=== PATIENT | male | born 1995 | race American Indian/Alaskan Native ===

== ENCOUNTER 2018-06-03 18:37 | Emergency (ER) | payer SELFPAY ==
[2018-06-03] MEDS ORDERED: NACL 0.9% 1000 ML 1,000 ML IV ONE ×2 (19:18)
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
[2018-06-03] MEDS ORDERED: ACTIDOSE-AQUA PO ONE (19:39)
[2018-06-03] MEDS ORDERED: ZOFRAN IV ONE (19:41)
[2018-06-03 19:57] LABS: Basophils % (Auto) 0.3 % (0.0-1.8); Eosinophils # (Auto) 0.1 K/mm3 (0.0-0.4); Eosinophils % (Auto) 0.6 % (0.0-4.3); Hematocrit 43.4 % (35.5-45.6); Hemoglobin 15.2 gm/dl (11.8-15.2); Lymphocytes # (Auto) 1.7 K/mm3 (1.2-5.4); Lymphocytes % (Auto) 11.3 % (13.4-35.0); Mean Corpuscular HGB Conc 35 % (32-34); Mean Corpuscular Hemoglobin 30 pg (28-32); Mean Corpuscular Volume 85 fl (84-94); Monocytes # (Auto) 1.6 K/mm3 (0.0-0.8); Monocytes % (Auto) 10.7 % (0.0-7.3); Platelet Count 218 K/mm3 (140-440); Red Blood Count 5.11 M/mm3 (3.65-5.03); Red Cell Distribution Width 15.4 % (13.2-15.2)
[2018-06-03 20:02] LABS: Bacteria,Urine 1+ /HPF (Negative); Bilirubin,Urine NEG (Negative); Blood,Urine NEG (Negative); Color,Urine Amber (Yellow); Mucus,Urine FEW /HPF
[2018-06-03 20:11] LABS: BUN/Creatinine Ratio 10; Blood Urea Nitrogen 10 mg/dL (9-20); Calcium 9.2 mg/dL (8.4-10.2); Hemolysis Index 2
[2018-06-03 20:11] LABS: Amphetamine Screen,Urine PRESUMPTIVE NEGATIVE; Benzodiazepines Screen,Urine PRESUMPTIVE NEGATIVE; Cocaine Screen,Urine PRESUMPTIVE NEGATIVE; Methadone Screen,Urine PRESUMPTIVE NEGATIVE; Opiate Screen,Urine PRESUMPTIVE NEGATIVE
[2018-06-03 20:17] LABS: Cannabinoid Screen,Urine PRESUMPTIVE POSITIVE
[2018-06-04] MEDS ORDERED: NACL 0.9% 1000 ML 1,000 ML IV ONE (00:49)
[2018-06-04] MEDS ORDERED: PROAIR IH ONE (08:19)
[2018-06-04] MEDS ORDERED: PROVENTIL IH ONE ×2 (08:45→11:04)
--- NOTE | 2018-06-04 11:49 | Consultation ---
History of Present Illness - Reason for Consult Consult date: 06/04/18 Reason for consult: Mental Health Evaluation Requesting physician: LINDA ROJAS - Chief Complaint Chief complaint: "I wanted my tongue to stop having spasm" - History of Present Psychiatric Illness 23 y.o. AA male presenting to the ER for overdosing on Benadryl. Today the patient is calm and cooperative during the assessment. He stated having "tongue spasm." The patient has a hx of taking antipsychotics in the past for Schizoaffective DO. He stated that he last received the monthly Invega injection a 30 days ago. He stated that he took 4 to 8 Benadryl to stop his tongue from feeling "funny." He stated that he normally take one or two Benadryl when he experience the spasm. He stated that he will not be receiving the monthly Invega injection anymore, because he feel like he doesn't need it. He denies any previous suicide attempts in the past. He denies SI/HI's and AVH' s. He denies erratic sleep and a poor appetite. He denies alcohol consumption ( etoh), but admitted to smoking marijuana "sometimes." Medications and Allergies Allergies Allergy/AdvReac Type Severity Reaction Status Date / Time aripiprazole [From Abilify] AdvReac Unknown Verified 06/03/18 18:58 citalopram [From Celexa] AdvReac Unknown Verified 06/03/18 19:00 divalproex sodium AdvReac Unknown Verified 06/03/18 18:59 [From Depakote] lurasidone [From Latuda] AdvReac Unknown Verified 06/03/18 19:01 olanzapine [From Zyprexa] AdvReac Unknown Verified 06/03/18 18:58 paroxetine [From Paxil] AdvReac Unknown Verified 06/03/18 18:57 risperidone [From Risperdal] AdvReac Unknown Verified 06/03/18 18:59 ziprasidone [From Geodon] AdvReac Unknown Verified 06/03/18 19:00 Home Medications Medication Instructions Recorded Confirmed Last Taken Type Basaglar Kwikpen U-100 20 units SQ DAILY 06/04/18 06/04/18 Unknown History Ventolin HFA 2 puff IH QID PRN 06/04/18 06/04/18 Unknown History metFORMIN 500 mg PO TID 06/04/18 06/04/18 Unknown History Past psychiatric history - Past Medical History Past Medical History: diabetes, other (Asthma) Past Surgical History: No surgical history - past Psychiatric treatment and history psychiatric treatment history: Inpatient psy services 5 yrs ago. Denies a fam psy hx. - Social History Social history: lives with family Mental Status Exam - Vital signs Last Vital Signs Temp 97.7 F 06/04/18 08:00 Pulse 73 06/04/18 08:00 Resp 17 06/04/18 08:00 BP 120/67 06/04/18 08:00 Pulse Ox 97 06/04/18 08:00 - Exam Narrative exam: MSE: Appearance: calm, cooperative Behavior: regular eye contact Speech: regular rate and tone Mood: "okay" Affect: congruent to mood Thought Process: circumstantial Thought Content: denies SI/HI's and AVH's Motor Activity: sitting up in bed Cognition: A/O x 3 Insight: variable Judgment: variable Results Result Diagrams: 06/03/18 19:35 06/03/18 19:35 Abnormal lab results 06/03/18 06/03/18 06/03/18 Range/Units 19:35 19:35 19:35 WBC (4.5-11.0) K/mm3 RBC (3.65-5.03) M/mm3 MCHC (32-34) % RDW (13.2-15.2) % Lymph % (Auto) (13.4-35.0) % [place] % (Auto) (0.0-7.3) % [place] # (0.0-0.8) K/mm3 Seg Neutrophils % (40.0-70.0) % Seg Neutrophils # (1.8-7.7) K/mm3 Glucose 149 H (75-100) mg/dL Salicylates < 0.3 L (2.8-20.0) mg/dL Acetaminophen < 5.0 L (10.0-30.0) ug/mL 06/03/18 Range/Units 19:35 WBC 14.8 H (4.5-11.0) K/mm3 RBC 5.11 H (3.65-5.03) M/mm3 MCHC 35 H (32-34) % RDW 15.4 H (13.2-15.2) % Lymph % (Auto) 11.3 L (13.4-35.0) % [place] % (Auto) 10.7 H (0.0-7.3) % [place] # 1.6 H (0.0-0.8) K/mm3 Seg Neutrophils % 77.1 H (40.0-70.0) % Seg Neutrophils # 11.5 H (1.8-7.7) K/mm3 Glucose (75-100) mg/dL Salicylates (2.8-20.0) mg/dL Acetaminophen (10.0-30.0) ug/mL All other labs normal. Assessment and Plan Assessment and plan: Impression: Hx of Schizoaffective DO per the patient. Cannabis Use DO. R/O possible intentional overdose. Today the patient is calm and cooperative during the assessment. No EPS symptoms noted. Recommendation/Plan: Continue 1013 and gather collateral information to help determine proper dispo and treatment. The patient last received the monthly Invega injection 30 days ago.
--- NOTE | 2018-06-05 12:25 | Progress Note ---
Subjective - Reason for Consult Consult date: 06/05/18 Reason for consult: Psychaitry Follow-up - Chief Complaint Chief complaint: "I don't know" 23 y.o. AA male presenting to the ER for overdosing on Benadryl. Today the patient is calm, but disorganized during the assessment. His answers to most of the questions asked of him was not logical. The patient's presentation is different from the initial assessment. Per collateral information from his mother Mere Rayo at [phone], she stated that her son has several metabolic/EPS side effects when he takes antipsychotic medications accept Invega. She stated that her son has less reactions to Invega when taken with Benadryl. She stated her son cannot take Cogentin. She stated that the patient received an Invega injection 40 days ago. Also, she stated that she do not believe her son tried to kill himself when he took multiple Benadryl pills to lessen the "tongue spasm" he was having. The patient denies SI/HI's and VH's. The patient cannot confirm or deny AH's when asked. Per the staff, no behavioral disturbances overnight. Mental Status Exam - Vital signs Last Vital Signs Temp 98.8 F 06/04/18 20:00 Pulse 98 H 06/04/18 20:00 Resp 18 06/04/18 20:00 BP 143/84 06/04/18 20:00 Pulse Ox 100 06/04/18 20:00 - Exam Narrative exam: MSE: Appearance: calm, cooperative Behavior: regular eye contact Speech: regular rate and tone Mood: "okay" Affect: congruent to mood Thought Process: disorganized Thought Content: denies SI/HI's and AVH's Motor Activity: sitting up in bed Cognition: A/O x 3 Insight: poor Judgment: variable Assessment and Plan Impression: Hx of Schizoaffective DO per the patient. Cannabis Use DO. R/O possible intentional overdose. Today the patient is calm and cooperative during the assessment. No EPS symptoms noted. QTC 442 06/03/2018. Recommendation/Plan: Continue 1013 with placement to inpatient psy services. Start Invega 3 mg PO daily for psychosis and Benadyl 25 mg PO daliy for EPS prevention. This medication is non-formulary and can be delivered today. Discussed possible metabolic/EPS side effects of Invega with the patient and his mother Mere Girma.
[2018-06-05] MEDS ORDERED: INVEGA 3 MG PO SCH (15:00)
[2018-06-06] MEDS: INVEGA PO SCH (09:59)
[2018-06-06] MEDS: BENADRYL PO SCH (09:59)
[2018-06-06 11:05] LABS: Basophils # (Auto) 0.1 K/mm3 (0.0-0.1); Basophils % (Auto) 0.9 % (0.0-1.8); Eosinophils # (Auto) 0.3 K/mm3 (0.0-0.4); Eosinophils % (Auto) 2.9 % (0.0-4.3); Lymphocytes # (Auto) 1.9 K/mm3 (1.2-5.4); Mean Corpuscular HGB Conc 37 % (32-34); Mean Corpuscular Hemoglobin 32 pg (28-32); Mean Corpuscular Volume 85 fl (84-94); Monocytes % (Auto) 10.1 % (0.0-7.3); Platelet Count 212 K/mm3 (140-440); Red Blood Count 4.84 M/mm3 (3.65-5.03); Red Cell Distribution Width 15.2 % (13.2-15.2)
[2018-06-06 11:07] LABS: Hematocrit 40.9 % (35.5-45.6); Hemoglobin 15.3 gm/dl (11.8-15.2)
[2018-06-06] MEDS ORDERED: HumuLIN R IV ONE (12:10)
--- NOTE | 2018-06-06 14:01 | Progress Note ---
Subjective - Reason for Consult Consult date: 06/06/18 Reason for consult: Psychiatry Follow-up - Chief Complaint Chief complaint: "Hello" 23 y.o. AA male presenting to the ER for overdosing on Benadryl. Today the patient is calm and cooperative during the assessment. The patient has a circumstantial thought process throughout he interview. He stated that he feel better "mentally" today. He stated talking with both his parents yesterday. The patient denies SI/HI's and AVH's. He denies any side effects of his medications. Per the staff, no behavioral disturbance overnight. Mental Status Exam - Vital signs Last Vital Signs Temp 98.6 F 06/06/18 09:22 Pulse 91 H 06/06/18 09:22 Resp 18 06/06/18 09:22 BP 123/77 06/06/18 09:22 Pulse Ox 99 06/06/18 09:22 - Exam Narrative exam: MSE: Appearance: calm, cooperative Behavior: regular eye contact Speech: regular rate and tone Mood: "okay" Affect: congruent to mood Thought Process: circumstantial Thought Content: denies SI/HI's and AVH's Motor Activity: sitting up in bed Cognition: A/O x 3 Insight: variable Judgment: variable Assessment and Plan Impression: Hx of Schizoaffective DO per the patient. Cannabis Use DO. R/O possible intentional overdose. Today the patient is calm and cooperative during the assessment. No EPS symptoms noted. QTC 442 06/03/2018. Recommendation/Plan: Reevaluate 1013 in 24 hours to determine proper dispo. Continue Invega 3 mg PO daily for psychosis/mood and Benadryl 25 mg PO daliy for EPS prevention. Invega is non-formulary. Discussed possible metabolic/EPS side effects of Invega with the patient and his mother Mere Rayo. Discussed the importance to abstain from recreational drug use.
[2018-06-06] MEDS ORDERED: D50W (25GM) Syringe IV PRN (17:57)
[2018-06-06] MEDS: HumuLIN R SUB-Q SCH ×2 (18:24→22:34)
--- NOTE | 2018-06-07 00:44 | Emergency Department Report ---
Blank Doc - Documentation Documentation: I re-signed a 1013 form as requested by psychiatrist from accepting facilitating who requested further clarification of 1013 criteria. Patient has been here for several days and was initially seen and medically cleared by Dr. Dinh and has received multiple psychiatric consults from mental health providers daily since he has been here in the emergency department. I clarified the 1013 criteria on form stating overdose attempt on Benadryl 25mg x 40 tablets. Patient still requires inpatient psychiatric admission as recommended by psychiatry and initial treating physician.
[2018-06-07 07:41] VITALS: BP 123/87
[2018-06-07] MEDS: HumuLIN R SUB-Q SCH ×3 (08:49→17:02)
[2018-06-07] MEDS: BENADRYL PO SCH (10:20)
[2018-06-07] MEDS: INVEGA PO SCH (10:20)
--- NOTE | 2018-06-07 15:55 | Progress Note ---
Subjective - Reason for Consult Consult date: 06/07/18 Reason for consult: Psychiatric Follow-up Evaluation - Chief Complaint Chief complaint: "I'm feeling okay. " Patient is a 23 y.o. male who presents to the emergency for overdosing on Benadryl. Today the patient is calm and cooperative during the assessment. Patient verbalized that he had/has no intentions on harming himself. Patient feels that his symptoms are controlled with Invega. Provider contacted patient's father at 3:43 to gain collateral ([phone]). Per father patient is safe to return home. He will ensure that patient receives his monthly dose of Invega Sustenna, which was last received in [place]. Per father patient will return to [place] to receive monthly dose of Invega Sustenna until he establish care with an outpatient psychiatrist here in [place]. The patient denies SI/HI's, AVH's, and delusions. He denies any side effects of his medications. Per the staff, no behavioral disturbance overnight, as well as, appropriate mood. Mental Status Exam - Vital signs Last Vital Signs Temp 97.4 F L 06/07/18 07:33 Pulse 81 06/07/18 07:33 Resp 16 06/07/18 07:33 BP 123/87 06/07/18 07:33 Pulse Ox 96 06/07/18 07:33 - Exam Narrative exam: Mental Status Exam General Appearance: Causally Dressed-hospital gown Eye Contact: Intermittent Orientation: Alert and oriented x 4 ( person, place, time, and situation) Attitude/Behavior: Cooperative Sensorium: Clear Psychomotor & Musculoskeletal Activity: Ambulatory Mood: "I'm okay." Affect: Congruent with mood Speech/Language: Regular rate and tone Thought Processes: Circumstantial Thought Content: Reality oriented. Logical. Patient denies delusions. Perception: Patient denies A/V/T hallucinations. Concentration/Attention: Intact Suicidal Ideations/Plan: Patient denies. "No." Homicidal Ideations/Plan: Patient denies "No." Insight: Fair Judgment: Fair Assessment and Plan Impression: Hx of Schizoaffective DO per the patient. Cannabis Use DO. R/O possible intentional overdose. Today the patient is calm and cooperative during the assessment. No EPS symptoms noted. QTC 442 06/03/2018. He denies SI/HI, A/VH , and delusions. At the time of discharge patient is in no danger to self or others. Collateral has been collected. Provider spoke with patient's father at 3 :43pm ). Patient has good support system. Discussed medications/ coping skills/follow-up appointments. Patient and parents verbalize full understanding. Recommendation/Plan: 1. Will rescind 1013. 2. Continue Invega 3 mg PO daily for psychosis/mood and Benadryl 25 mg PO daliy for EPS prevention. Discussed possible metabolic/EPS side effects of Invega with the patient and his father Mr. Rayo. 3. Will provide patient with outpatient psychiatric services to the [facility]. 4. In case of a psychiatric emergency, patient/parents informed to call 911, report to the emergency room, or call the crisis line. Patient and parent verbalize full understanding. 5. Patient educated on recreational drug use. Discussed the importance to abstain from recreational drug use. 6. Safety plan discussed/implemented with father/patient in case of a psychiatric emergency per Kimberly/provider.
== END 2018-06-07 20:23 ==
LOC: ED 18:37 → EEVIPCON 18:37 → ED 06-07 20:23
DX: T45.0X1A Poisoning by antiallergic and antiemetic drugs, accidental (unintentional), initial encounter (principal); F31.9 Bipolar disorder, unspecified; F43.10 Post-traumatic stress disorder, unspecified; F25.9 Schizoaffective disorder, unspecified; J45.909 Unspecified asthma, uncomplicated; E11.9 Type 2 diabetes mellitus without complications; Z88.8 Allergy status to other drugs, medicaments and biological substances; Z88.1 Allergy status to other antibiotic agents; Z79.84 Long term (current) use of oral hypoglycemic drugs; Y92.89 Other specified places as the place of occurrence of the external cause
CPT/HCPCS: 36415; 80048; 80307; 81001; 82550; 82962; 85025; 93005; 93010; 94640; 96374; 99285; G0480; J2405; J7030; 80320

== ENCOUNTER 2019-04-08 01:15 | Emergency (ER) | payer MEDICAID ==
[2019-04-08] MEDS ORDERED: ZOFRAN IV ONE (01:50)
[2019-04-08] MEDS ORDERED: MORPHINE IV ONE (01:50)
--- NOTE | 2019-04-08 02:25 | XRay Report ---
PROCEDURE: XR SHOULDER 2+V RT TECHNIQUE: 3 views of the right shoulder were obtained. HISTORY: Injury COMPARISONS: None FINDINGS: There is an inferior subcoracoid dislocation of the humeral head without fracture. The acromioclavicu lar joint appears normal. The soft tissues are unremarkable. IMPRESSION: Inferior subcoracoid dislocation of the humeral head without fracture.. This document is electronically signed by Ren Espinoza MD., Apr 08 2019 02:23:41 AM ET
[2019-04-08] MEDS ORDERED: SUBLIMAZE IV ONE (02:28)
[2019-04-08] MEDS ORDERED: TORADOL IV ONE (02:28)
[2019-04-08] MEDS ORDERED: AMIDATE IV ONE (02:29)
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
[2019-04-08] MEDS ORDERED: NACL 0.9% 1000 ML 1,000 ML ONE (02:41)
[2019-04-08] MEDS ORDERED: NACL 0.9% 1000 ML 1,000 ML IV ONE (02:41)
--- NOTE | 2019-04-08 03:40 | XRay Report ---
PROCEDURE: XR SHOULDER 1V RT TECHNIQUE: Right shoulder 1 view HISTORY: status post reduction COMPARISONS: Earlier the same date FINDINGS: Previously identified dislocation has been reduced. No acute fractures seen IMPRESSION: Reduced dislocation. This document is electronically signed by Fifi Edmond DO., Apr 08 2019 03:38:41 AM ET
[2019-04-08 04:09] VITALS: BP 148/91
== END 2019-04-08 04:16 | disposition home or self-care (01) ==
LOC: ED 01:15
DX: S43.034A Inferior dislocation of right humerus, initial encounter (principal); E11.9 Type 2 diabetes mellitus without complications; J45.909 Unspecified asthma, uncomplicated; F12.90 Cannabis use, unspecified, uncomplicated; W51.XXXA Accidental striking against or bumped into by another person, initial encounter; Y93.71 Activity, boxing; Y92.89 Other specified places as the place of occurrence of the external cause; Y99.8 Other external cause status
CPT/HCPCS: 23650; 73020; 73030; 96374; 96375; 99284; J1885; J2270; J2405; J3010; J7030

== ENCOUNTER 2019-07-20 11:00 | Emergency (ER) | payer MEDICAID ==
[2019-07-20 11:29] VITALS: BP 136/78
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
== END 2019-07-20 11:57 | disposition home or self-care (01) ==
LOC: ED 11:00
DX: J30.9 Allergic rhinitis, unspecified (principal); E11.9 Type 2 diabetes mellitus without complications; J45.909 Unspecified asthma, uncomplicated; F43.10 Post-traumatic stress disorder, unspecified; F31.9 Bipolar disorder, unspecified
CPT/HCPCS: 99282

== ENCOUNTER 2019-10-28 14:52 | Emergency (ER) | payer MEDICAID ==
[2019-10-28 15:09] VITALS: BP 122/78
--- NOTE | 2019-10-28 15:11 | Event Note ---
ED Screening Note Date of service: 10/28/19 Time: 15:08 ED Screening Note: This is a 24 y.o. M. that presents to the ER with SOB and low back pain started this morning. Patient states he is using inhaler with no improvement of symptoms. Current marijuana smoker This initial assessment/diagnostic orders/clinical plan/treatment(s) is/are subject to change based on patients health status, clinical progression and re- assessment by fellow clinical providers in the ED. Further treatment and workup at subsequent clinical providers discretion. Patient/guardian urged not to elope from the ED as their condition may be serious if not clinically assessed and managed. Initial orders include:
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
== END 2019-10-28 16:38 | disposition home or self-care (01) ==
LOC: ED 14:52
DX: M79.18 Myalgia, other site (principal); E11.9 Type 2 diabetes mellitus without complications; J45.909 Unspecified asthma, uncomplicated; F31.9 Bipolar disorder, unspecified; Z98.890 Other specified postprocedural states; F12.10 Cannabis abuse, uncomplicated; Z79.1 Long term (current) use of non-steroidal anti-inflammatories (NSAID); Z79.899 Other long term (current) drug therapy; Z88.8 Allergy status to other drugs, medicaments and biological substances
CPT/HCPCS: 82962

== ENCOUNTER 2020-07-19 12:36 | Emergency (ER) | payer MEDICAID ==
[2020-07-19 13:18] LABS: Basophils # (Auto) 0.1 K/mm3 (0.0-0.1); Basophils % (Auto) 0.9 % (0.0-1.8); Eosinophils # (Auto) 0.1 K/mm3 (0.0-0.4); Eosinophils % (Auto) 1.2 % (0.0-4.3); Hematocrit 43.6 % (35.5-45.6); Hemoglobin 15.7 gm/dl (11.8-15.2); Lymphocytes # (Auto) 3.7 K/mm3 (1.2-5.4); Lymphocytes % (Auto) 32.8 % (13.4-35.0); Mean Corpuscular HGB Conc 36 % (32-34); Mean Corpuscular Volume 84 fl (84-94); Monocytes # (Auto) 1.2 K/mm3 (0.0-0.8); Monocytes % (Auto) 10.7 % (0.0-7.3); Platelet Count 290 K/mm3 (140-440); Red Blood Count 5.21 M/mm3 (3.65-5.03); Red Cell Distribution Width 13.7 % (13.2-15.2)
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
[2020-07-19 13:32] LABS: BUN/Creatinine Ratio 12; Blood Urea Nitrogen 11 mg/dL (9-20); Calcium 8.9 mg/dL (8.4-10.2); Hemolysis Index 13
[2020-07-19 14:31] LABS: Bilirubin,Urine NEG (Negative); Blood,Urine NEG (Negative); Color,Urine Yellow (Yellow); Mucus,Urine FEW /HPF; Protein,Urine <15 mg/dL mg/dL (Negative); Urobilinogen,Urine < 2.0 mg/dL (<2.0); WBC,Urine < 1.0 /HPF (0.0-6.0)
[2020-07-19 14:36] LABS: Amphetamine Screen,Urine PRESUMPTIVE NEGATIVE; Benzodiazepines Screen,Urine PRESUMPTIVE NEGATIVE; Cannabinoid Screen,Urine PRESUMPTIVE POSITIVE; Cocaine Screen,Urine PRESUMPTIVE NEGATIVE; Methadone Screen,Urine PRESUMPTIVE NEGATIVE; Opiate Screen,Urine PRESUMPTIVE NEGATIVE
[2020-07-20 00:30] VITALS: BP 134/76
== END 2020-07-20 01:26 ==
LOC: ED 12:36 → EEVIPCON 12:36 → ED 07-20 01:26
DX: F20.9 Schizophrenia, unspecified (principal); R45.851 Suicidal ideations; E11.9 Type 2 diabetes mellitus without complications; J45.909 Unspecified asthma, uncomplicated; F12.10 Cannabis abuse, uncomplicated; Z98.890 Other specified postprocedural states; Z87.891 Personal history of nicotine dependence; Z79.1 Long term (current) use of non-steroidal anti-inflammatories (NSAID); Z79.84 Long term (current) use of oral hypoglycemic drugs; Z79.899 Other long term (current) drug therapy; Z88.8 Allergy status to other drugs, medicaments and biological substances
CPT/HCPCS: 36415; 80048; 80307; 80320; 81001; 85025; G0480

== ENCOUNTER 2021-01-04 07:52 | Emergency (ER) | payer MEDICAID ==
[2021-01-04 07:58] VITALS: BP 144/86
[2021-01-04 08:35] LABS: Basophils # (Auto) 0.1 K/mm3 (0.0-0.1); Basophils % (Auto) 0.8 % (0.0-1.8); Eosinophils # (Auto) 0.4 K/mm3 (0.0-0.4); Eosinophils % (Auto) 3.9 % (0.0-4.3); Lymphocytes # (Auto) 3.5 K/mm3 (1.2-5.4); Lymphocytes % (Auto) 36.9 % (13.4-35.0); Mean Corpuscular HGB Conc 36 % (32-34); Mean Corpuscular Volume 83 fl (84-94); Monocytes # (Auto) 0.8 K/mm3 (0.0-0.8); Monocytes % (Auto) 8.5 % (0.0-7.3); Platelet Count 252 K/mm3 (140-440); Red Blood Count 5.25 M/mm3 (3.65-5.03); Red Cell Distribution Width 13.1 % (13.2-15.2)
[2021-01-04 08:43] LABS: Hematocrit 43.7 % (35.5-45.6)
[2021-01-04 08:44] LABS: Hemoglobin 15.9 gm/dl (11.8-15.2)
[2021-01-04 09:00] LABS: BUN/Creatinine Ratio 11; Blood Urea Nitrogen 9 mg/dL (9-20); Hemolysis Index 27
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
== END 2021-01-04 10:40 | disposition home or self-care (01) ==
LOC: ED 07:52
DX: S86.911A Strain of unspecified muscle(s) and tendon(s) at lower leg level, right leg, initial encounter (principal); E11.9 Type 2 diabetes mellitus without complications; F20.9 Schizophrenia, unspecified; J45.909 Unspecified asthma, uncomplicated; Z98.890 Other specified postprocedural states; Z79.1 Long term (current) use of non-steroidal anti-inflammatories (NSAID); Z79.84 Long term (current) use of oral hypoglycemic drugs; Z79.899 Other long term (current) drug therapy; Z88.8 Allergy status to other drugs, medicaments and biological substances; X58.XXXA Exposure to other specified factors, initial encounter; Y93.89 Activity, other specified; Y92.89 Other specified places as the place of occurrence of the external cause; Y99.8 Other external cause status
CPT/HCPCS: 36415; 80048; 85025; 85379

== ENCOUNTER 2021-01-05 16:14 | Emergency (ER) | payer MEDICAID ==
[2021-01-05] MEDS ORDERED: KETOROLAC 30 MG/1 ML INJ IV ONE (17:00)
[2021-01-05] MEDS ORDERED: CYCLOBENZAPRINE 10 MG TAB PO ONE (17:00)
[2021-01-05] MEDS ORDERED: dexAMETHasone 20 MG/5 ML VIAL IV ONE (17:00)
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
--- NOTE | 2021-01-05 18:09 | Vascular Lab Report ---
DUPLEX DOPPLER LOWER EXTREMITY VEINS, RIGHT INDICATION / CLINICAL INFORMATION: right leg pain. TECHNIQUE: Duplex doppler imaging was performed through the veins of the right lower extremity using venous comp ression and other maneuvers. COMPARISON: None available. FINDINGS: RIGHT COMMON FEMORAL VEIN: Negative. RIGHT FEMORAL VEIN: Negative. RIGHT POPLITEAL VEIN: Negative. RIGHT CALF VEINS: Negative. ADDITIONAL FINDINGS: None. IMPRESSION: 1. No sonographic evidence for DVT in the right lower extremity. Signer Name: Vijay Parikh MD Signed: 01/05/2021 6:04 PM Workstation Name: [id number]
[2021-01-05 18:24] LABS: Basophils # (Auto) 0.1 K/mm3 (0.0-0.1); Basophils % (Auto) 0.5 % (0.0-1.8); Eosinophils # (Auto) 0.2 K/mm3 (0.0-0.4); Eosinophils % (Auto) 1.5 % (0.0-4.3); Lymphocytes % (Auto) 23.5 % (13.4-35.0); Mean Corpuscular HGB Conc 37 % (32-34); Mean Corpuscular Volume 83 fl (84-94); Monocytes # (Auto) 1.1 K/mm3 (0.0-0.8); Monocytes % (Auto) 8.8 % (0.0-7.3); Platelet Count 259 K/mm3 (140-440); Red Cell Distribution Width 13.1 % (13.2-15.2)
[2021-01-05 18:30] LABS: Hematocrit 43.3 % (35.5-45.6); Hemoglobin 15.9 gm/dl (11.8-15.2)
[2021-01-05 18:40] LABS: BUN/Creatinine Ratio 14; Blood Urea Nitrogen 11 mg/dL (9-20); Calcium 9.2 mg/dL (8.4-10.2); Hemolysis Index 10
[2021-01-05 20:38] LABS: Bilirubin,Urine SM (Negative); Blood,Urine NEG (Negative); Color,Urine Yellow (Yellow); Mucus,Urine 2+ /HPF; Protein,Urine <15 mg/dL mg/dL (Negative)
[2021-01-05 20:41] LABS: Ictotest,Urine Negative (Negative)
[2021-01-05 21:09] VITALS: BP 133/87
== END 2021-01-05 20:30 | disposition home or self-care (01) ==
LOC: ED 16:14
DX: S86.911A Strain of unspecified muscle(s) and tendon(s) at lower leg level, right leg, initial encounter (principal); E11.9 Type 2 diabetes mellitus without complications; F20.9 Schizophrenia, unspecified; J45.909 Unspecified asthma, uncomplicated; Z98.890 Other specified postprocedural states; Z79.899 Other long term (current) drug therapy; Z79.1 Long term (current) use of non-steroidal anti-inflammatories (NSAID); Z79.84 Long term (current) use of oral hypoglycemic drugs; Z88.8 Allergy status to other drugs, medicaments and biological substances; X58.XXXA Exposure to other specified factors, initial encounter; Y93.89 Activity, other specified; Y92.89 Other specified places as the place of occurrence of the external cause; Y99.8 Other external cause status
CPT/HCPCS: 36415; 80048; 81001; 85025; 93971; 96374; 96375; 99284; J1100; J1885

== ENCOUNTER 2021-04-24 12:30 | Inpatient (IN) | payer MEDICAID ==
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
[2021-04-24] MEDS ORDERED: HALOPERIDOL LACTATE 5 MG/1 ML INJ IM PRN (13:22)
[2021-04-24] MEDS ORDERED: LORazepam 2 MG/ML VIAL IM PRN (13:22)
[2021-04-24 14:09] LABS: Bilirubin,Urine NEG (Negative); Blood,Urine NEG (Negative); Color,Urine Yellow (Yellow); Protein,Urine <15 mg/dL mg/dL (Negative); Urobilinogen,Urine < 2.0 mg/dL (<2.0)
[2021-04-24 14:11] LABS: WBC,Urine < 1.0 /HPF (0.0-6.0)
[2021-04-24 14:14] LABS: Basophils # (Auto) 0.1 K/mm3 (0.0-0.1); Basophils % (Auto) 1.3 % (0.0-1.8); Eosinophils # (Auto) 0.4 K/mm3 (0.0-0.4); Eosinophils % (Auto) 3.5 % (0.0-4.3); Lymphocytes # (Auto) 2.5 K/mm3 (1.2-5.4); Lymphocytes % (Auto) 24.7 % (13.4-35.0); Mean Corpuscular HGB Conc 36 % (32-34); Mean Corpuscular Volume 83 fl (84-94); Monocytes # (Auto) 1.3 K/mm3 (0.0-0.8); Monocytes % (Auto) 12.7 % (0.0-7.3); Platelet Count 273 K/mm3 (140-440); Red Blood Count 5.29 M/mm3 (3.65-5.03); Red Cell Distribution Width 13.7 % (13.2-15.2)
[2021-04-24 14:17] LABS: Amphetamine Screen,Urine Negative; Benzodiazepines Screen,Urine Negative; Cocaine Screen,Urine Negative; Methadone Screen,Urine Negative; Opiate Screen,Urine Negative
[2021-04-24 14:20] LABS: Hematocrit 44.1 % (35.5-45.6); Hemoglobin 15.9 gm/dl (11.8-15.2)
[2021-04-24 14:37] LABS: BUN/Creatinine Ratio 9
[2021-04-24 15:14] LABS: Alanine Aminotransferase 27 units/L (7-56); Albumin 4.5 g/dL (3.9-5); Blood Urea Nitrogen 7 mg/dL (9-20); Calcium 8.8 mg/dL (8.4-10.2); Hemolysis Index 6
[2021-04-24] MEDS ORDERED: LACTATED RINGERS 2,000 ML IV ONE (15:17)
[2021-04-24 15:21] LABS: Cannabinoid Screen,Urine PRESUMPTIVE POSITIVE
--- NOTE | 2021-04-24 16:28 | History and Physical Report ---
History of Present Illness Chief complaint: I hate everything, I want to , I want to kill people History of present illness: 26 YO Male with Depression, Suicidal Ideation, Asthma, PTSD, PSA, Nicotine Dependence, DM, Asthma presents to ED for evaluation. Pt reports " I hate everything, I want to , I want to kill people". Patient reports consuming 1 cup of antifreeze 15 minutes prior to presentation to ER in an attempt to take his own life. Patient transported to [facility] via private vehicle for further care and evaluation of the aforementioned symptoms. The patient is seen and evaluated in the emergency department. All lab and imaging studies reviewed. Patient found to have suicidal Frederic ideation complicated by suicide attempt with antifreeze ingestion, metabolic acidosis, psychosis. Patient admitted to ICU. Poison control notified, and the patient was initiated on Fomepizone therapy as an antidote specific for ethylene glycol ingestion due to concern regarding ensuing end organ damage as per poison control recommendations. The patient was also initiated on thiamine, and vitamin B6 therapy. The patient was placed on 1013 and mental health consult placed in ED. critical care team consulted in ED. Nephrology team consulted in ED. No further history is obtainable. Patient minimally cooperative with exam and interview. No prior admission for review. All medication listed at time of admission has been reconciled. Past History Past Medical History: diabetes, other (See HPI) Past Surgical History: No surgical history, Other (Reviewed) Social history: single, other (Polysubstance abuse) Family history: hypertension Medications and Allergies Allergies Allergy/AdvReac Type Severity Reaction Status Date / Time benztropine [From Cogentin] AdvReac Severe Unknown Verified 01/04/21 07:53 aripiprazole [From Abilify] AdvReac Unknown Verified 01/04/21 07:53 citalopram [From Celexa] AdvReac Unknown Verified 01/04/21 07:53 divalproex sodium AdvReac Unknown Verified 01/04/21 07:53 [From Depakote] lurasidone [From Latuda] AdvReac Unknown Verified 01/04/21 07:53 olanzapine [From Zyprexa] AdvReac Unknown Verified 01/04/21 07:53 paroxetine [From Paxil] AdvReac Unknown Verified 01/04/21 07:53 risperidone [From Risperdal] AdvReac Unknown Verified 01/04/21 07:53 ziprasidone [From Geodon] AdvReac Unknown Verified 01/04/21 07:53 Home Medications Medication Instructions Recorded Confirmed Last Taken Type Tamika Villa U-100 20 units SQ DAILY 06/04/18 06/04/18 Unknown History Ventolin HFA 2 puff IH QID PRN 06/04/18 06/04/18 Unknown History metFORMIN 500 mg PO TID 06/04/18 06/04/18 Unknown History Cyclobenzaprine [Flexeril] 10 mg PO QHS PRN #20 tablet 10/03/18 Unknown Rx Ibuprofen [Motrin 800 MG tab] 800 mg PO Q8HR PRN #30 tablet 10/03/18 Unknown Rx Albuterol Mdi (or & Nicu Only) 2 puff IH Q4HR PRN #1 inhalation 03/02/19 Unknown Rx [ProAir HFA Inhaler] Cetirizine HCl/Pseudoephedrine 1 each PO DAILY #30 tab.er.12h 03/02/19 Unknown Rx [Zyrtec-D Tablet] Fluticasone [Flonase] 2 spray NS QDAY #1 bottle 03/02/19 Unknown Rx Prednisone [predniSONE 10 mg 10 mg PO .TAPER #1 tab.ds.pk 03/02/19 Unknown Rx (6-Day Pack, 21 Tabs)] HYDROcodone/APAP 5-325 [[place] 1 - 2 each PO Q6HR PRN #14 tablet 04/08/19 Unknown Rx 5/325] Ibuprofen [Motrin 800 MG tab] 800 mg PO Q8HR PRN #20 tablet 04/08/19 Unknown Rx Cyclobenzaprine HCl [Flexeril 5 MG 5 mg PO TID PRN #10 tab 10/28/19 Unknown Rx TAB] Active Meds: Active Medications Haloperidol Lactate (Haloperidol Lactate 5 Mg/1 Ml Inj) 5 mg IM Q6HR PRN PRN Reason: Agitation Lactated Ringer's (Lactated Ringers) 2,000 mls @ 999 mls/hr IV BOLUS ONE Stop: 04/24/21 17:17 Fomepizole 1,190 mg/ Sodium (Chloride) 101.19 mls @ 200 mls/hr IV ONCE ONE Stop: 04/24/21 17:00 Lorazepam (Lorazepam 2 Mg/Ml Vial) 2 mg IM Q4HR PRN PRN Reason: Agitation Review of Systems ROS unobtainable: due to mental status Constitutional: other (I want to kill myself) Exam - Constitutional Vitals: Temp Pulse Resp BP Pulse Ox 98.6 F 86 16 122/85 98 04/24/21 13:10 04/24/21 14:04 04/24/21 14:04 04/24/21 14:04 04/24/21 14:04 General appearance: Present: mild distress - EENT Eyes: Present: PERRL ENT: hearing intact, clear oral mucosa - Neck Neck: Present: supple, normal ROM - Respiratory Respiratory effort: normal Respiratory: bilateral: CTA - Cardiovascular Heart Sounds: Present: S1 & S2. Absent: rub, click - Extremities Extremities: pulses symmetrical, No edema Peripheral Pulses: within normal limits - Abdominal General gastrointestinal: Present: soft, non-tender, non-distended, normal bowel sounds Male genitourinary: Present: normal - Integumentary Integumentary: Present: clear, warm, dry - Musculoskeletal Musculoskeletal: gait normal, strength equal bilaterally - Psychiatric Psychiatric: appropriate mood/affect, intact judgment & insight - Neurologic Neurologic: CNII-XII intact, moves all extremities Results - Labs CBC & Chem 7: 04/24/21 13:53 04/24/21 13:53 Labs: Abnormal lab results 04/24/21 04/24/21 04/24/21 Range/Units 13:53 13:53 13:53 RBC 5.29 H (3.65-5.03) M/mm3 Hgb 15.9 H (11.8-15.2) gm/dl MCV 83 L (84-94) fl MCHC 36 H (32-34) % [place] % (Auto) 12.7 H (0.0-7.3) % [place] # (Auto) 1.3 H (0.0-0.8) K/mm3 Carbon Dioxide 21 L (22-30) mmol/L BUN 7 L (9-20) mg/dL Lactic Acid 5.30 H* (0.7-2.0) mmol/L Alkaline Phosphatase 154 H (35-129) units/L Salicylates (2.8-20.0) mg/dL Acetaminophen (10.0-30.0) ug/mL Valproic Acid (50-100) ug/mL 04/24/21 04/24/21 Range/Units 13:53 13:53 RBC (3.65-5.03) M/mm3 Hgb (11.8-15.2) gm/dl MCV (84-94) fl MCHC (32-34) % [place] % (Auto) (0.0-7.3) % [place] # (Auto) (0.0-0.8) K/mm3 Carbon Dioxide (22-30) mmol/L BUN (9-20) mg/dL Lactic Acid (0.7-2.0) mmol/L Alkaline Phosphatase (35-129) units/L Salicylates < 2.0 L (2.8-20.0) mg/dL Acetaminophen 5.0 L (10.0-30.0) ug/mL Valproic Acid 2.8 L (50-100) ug/mL Assessment and Plan - Patient Problems (1) Ethylene glycol poisoning Current Visit: Yes Status: Acute Qualifiers: Encounter type: initial encounter Plan to address problem: Poison control notified. Patient admitted to ICU and initiated on Fomepizone therapy, vitamin B6 therapy, as well as thiamine. CMP, repeat CMP in a.m., neuro check, seizure precautions. The high probability of a clinically significant, sudden or life threatening deterioration of the [neuro, renal, hepatobiliary] system(s) required my full and direct attention, intervention and personal management. The aggregate critical care time was [65] minutes. This time is in addition to time spent performing reported procedures but includes the following: [x] Data Review and interpretation [x] Patient assessment and monitoring of vital signs [x] Documentation [x] Medication orders and management (2) Suicide attempt Current Visit: Yes Status: Acute Plan to address problem: Patient placed on 1013, mental health team consulted in ED. (3) High serum osmolar gap Current Visit: Yes Status: Acute Plan to address problem: Supportive care, poison control notified, CMP, repeat CMP in a.m. (4) Lactic acidosis Current Visit: Yes Status: Acute (5) Nicotine dependence Current Visit: Yes Status: Acute Qualifiers: Nicotine product type: cigarettes Substance use status: in withdrawal Qualified Code(s): F17.213 - Nicotine dependence, cigarettes, with withdrawal Plan to address problem: Smoking cessation counseling, supportive care, behavior change counseling, +15 minutes. (6) Polysubstance abuse Current Visit: Yes Status: Acute Plan to address problem: Supportive care, neuro check, seizure precautions, IV fluid resuscitation therapy as clinically indicated. Urine drug screen (7) DVT prophylaxis Current Visit: Yes Status: Acute Plan to address problem: SCD to bilateral lower extremities while in bed, patient is ambulatory
[2021-04-24] MEDS ORDERED: SODIUM CHLORIDE 0.9% IV ONE (16:30)
[2021-04-24] MEDS ORDERED: FOMEPIZOLEV IV ONE (16:30)
[2021-04-24 16:46] LABS: ABG Base Excess -4.7 mmol/L (-2.0-3.0); ABG Methemoglobin 0.5 % (0.0-1.5); ABG Oxygen Saturation 97.3 % (95.0-99.0); ABG PCO2 28.3 mm Hg; ABG PH 7.421 pH Units (7.350-7.450); ABG PO2 92.5 mm Hg (80.0-90.0)
[2021-04-24] MEDS ORDERED: DEXTROSE 50% IN WATER (25GM) 50 ML SYRINGE IV PRN (17:16)
[2021-04-24] MEDS: THIAMINE 100 MG TAB PO SCH (18:17)
[2021-04-24] MEDS: PYRIDOXINE 50 MG TAB PO SCH (18:17)
[2021-04-24] MEDS: INSULIN LISPRO 100 UNIT/ML SUB-Q SCH (21:45)
[2021-04-25] MEDS ORDERED: SODIUM CHLORIDE 0.9% IV SCH
[2021-04-25] MEDS ORDERED: FOMEPIZOLEV IV SCH
[2021-04-25] MEDS: INSULIN LISPRO 100 UNIT/ML SUB-Q SCH ×3 (00:21→12:35)
[2021-04-25] MEDS: SODIUM CHLORIDE 0.9% IV SCH ×2 (04:30→16:39)
[2021-04-25] MEDS: FOMEPIZOLEV IV SCH ×2 (04:30→16:39)
[2021-04-25 05:31] LABS: Mean Corpuscular HGB Conc 37 % (32-34); Mean Corpuscular Volume 83 fl (84-94); Platelet Count 253 K/mm3 (140-440); Red Blood Count 5.33 M/mm3 (3.65-5.03); Red Cell Distribution Width 13.7 % (13.2-15.2)
[2021-04-25 05:33] LABS: Hematocrit 44.1 % (35.5-45.6); Hemoglobin 16.1 gm/dl (11.8-15.2)
[2021-04-25 05:53] LABS: Alanine Aminotransferase 25 units/L (7-56); Albumin 4.3 g/dL (3.9-5); Blood Urea Nitrogen 6 mg/dL (9-20); Calcium 9.1 mg/dL (8.4-10.2); Hemolysis Index 6
[2021-04-25 06:00] LABS: BUN/Creatinine Ratio 9
[2021-04-25 06:16] LABS: Total Cells Counted 100
[2021-04-25 06:17] LABS: Anisocytosis 1+; Platelet Estimate Consistent w Auto
--- NOTE | 2021-04-25 08:18 | Consultation ---
History of Present Illness - Reason for Consult Consult date: 04/25/21 Reason for consult: MHE Requesting physician: JOHN BECKER - Chief Complaint Chief complaint: I hate everything, I want to , I want to kill people - History of Present Psychiatric Illness Per ED Provider: This is a 26-year-old gentleman. He presents to the ER with a complaint of suicidality, having consumed approximately 1 cup of antifreeze. He cannot tell me the exact time of ingestion. He reports that he is feeling suicidal. He denies hallucinations. He denies physical pain. He denies loss of taste and smell. He states he was previously on Latuda, but has not taken it, "because they forgot to prescribe it to me." He denies headache, neck pain, chest pain, abdominal pain, shortness of breath and urinary symptoms. PSYCH HPI patient is a 26-year-old, unemployed, single -[place] male who currently resides with family with past psychiatric history of bipolar schizophrenia who presented to the ED with chief complaint of suicidal ideation with intent after drinking 1 cup of antifreeze. Patient reported he drank antifreeze to get the voices out of his head after he began having withdrawal symptoms from not getting his Latuda medication due to the pharmacy not having it. Patient states then he started hearing voices, could not describe what it was he was tolerating but it was disturbing enough for him not to want to live anymore hence why he drank antifreeze PAST PSYCHIATRIC HISTORY Diagnoses: Bipolar schizophrenia Suicide attempts or Self-harm behavior: Yes Prior psychiatric hospitalizations: Yes Substance Abuse history: Marijuana Previous psychiatric medications tried: Latuda Outpatient treatment: Yes PAST MEDICAL HISTORY: Asthma Family Psychiatric History: None reported or documented SOCIAL HISTORY Marital Status: Single Living Arrangements: With family Employment Status: Unemployed Access to guns/weapons: None reported Education: High school History of Abuse: None report Legal History: None reported REVIEW OF SYSTEMS Constitutional: Negative for weight loss ENT: Negative for stridor Respiratory: Negative for cough or hemoptysis All other systems reviewed and are negative MENTAL STATUS EXAMINATION General Appearance and Behavior: Age appropriate, good hygiene, wearing appropriate clothes,, good eye contact Cooperation: Participating/engaged, but Guarded Psychomotor Behavior: Psychomotor normal Mood: depressed Affect and affective range: Flat Thought Process: illogical Thought Content: Auditory hallucination Speech: Normal rate, volume and rythm Intellectual Functioning: Average Suicidal Ideation: SI Homicidal Ideation: Denies HI Impulse Control: Impaired Insight and Judgment: Limited insight and judgment Memory: Normal Attention: Normal Orientation: Alert, oriented Assessment and Plan - Psychiatric problem (1) Schizoaffective disorder Current Visit: Yes Status: Acute Treatment Plan we will hold off oral psychiatric medications at this time MEDICATIONS: Risks, benefits and alternatives of medications discussed with the patient, questions answered and consent obtained from patient. PSYCHOTHERAPY: Supportive psychotherapy provided MEDICAL: Per primary team DELIRIUM PRECAUTIONS: Please re-orient patient frequently, keep lights on during the day, and minimize benzodiazepines and opiates as these medications could worsen patient's confusion. 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 Case discussed with Dr. Mckeon who agrees with current disposition LEGAL STATUS: 1013 FOLLOW-UP: Will follow Thank you for the consult. Please contact with any questions and/or concerns. Medications and Allergies Allergies Allergy/AdvReac Type Severity Reaction Status Date / Time benztropine [From Cogentin] AdvReac Severe Unknown Verified 01/04/21 07:53 aripiprazole [From Abilify] AdvReac Unknown Verified 01/04/21 07:53 citalopram [From Celexa] AdvReac Unknown Verified 01/04/21 07:53 divalproex sodium AdvReac Unknown Verified 01/04/21 07:53 [From Depakote] lurasidone [From Latuda] AdvReac Unknown Verified 01/04/21 07:53 olanzapine [From Zyprexa] AdvReac Unknown Verified 01/04/21 07:53 paroxetine [From Paxil] AdvReac Unknown Verified 01/04/21 07:53 risperidone [From Risperdal] AdvReac Unknown Verified 01/04/21 07:53 ziprasidone [From Geodon] AdvReac Unknown Verified 01/04/21 07:53 Home Medications Medication Instructions Recorded Confirmed Last Taken Type Basaglar Kwikpen U-100 20 units SQ DAILY 06/04/18 06/04/18 Unknown History Ventolin HFA 2 puff IH QID PRN 06/04/18 06/04/18 Unknown History metFORMIN 500 mg PO TID 06/04/18 06/04/18 Unknown History Cyclobenzaprine [Flexeril] 10 mg PO QHS PRN #20 tablet 10/03/18 Unknown Rx Ibuprofen [Motrin 800 MG tab] 800 mg PO Q8HR PRN #30 tablet 10/03/18 Unknown Rx Albuterol Mdi (or & Nicu Only) 2 puff IH Q4HR PRN #1 inhalation 03/02/19 Unkno wn Rx [ProAir HFA Inhaler] Cetirizine HCl/Pseudoephedrine 1 each PO DAILY #30 tab.er.12h 03/02/19 Unknown Rx [Zyrtec-D Tablet] Fluticasone [Flonase] 2 spray NS QDAY #1 bottle 03/02/19 Unknown Rx Prednisone [predniSONE 10 mg 10 mg PO .TAPER #1 tab.ds.pk 03/02/19 Unknown Rx (6-Day Pack, 21 Tabs)] HYDROcodone/APAP 5-325 [[place] 1 - 2 each PO Q6HR PRN #14 tablet 04/08/19 U nknown Rx 5/325] Ibuprofen [Motrin 800 MG tab] 800 mg PO Q8HR PRN #20 tablet 04/08/19 Unknown Rx Cyclobenzaprine HCl [Flexeril 5 MG 5 mg PO TID PRN #10 tab 10/28/19 Unknown Rx TAB] Active Meds: Active Medications Albuterol (Albuterol 2.5 Mg/3 Ml Nebu) 2.5 mg IH Q4HRT PRN PRN Reason: Shortness Of Breath Dextrose (Dextrose 50% In Water (25gm) 50 Ml Syringe) 50 ml IV Q30MIN PRN; Protocol PRN Reason: Hypoglycemia Folic Acid (Folic Acid 1 Mg Tab) 1 mg PO QDAY LUIS FELIPE Haloperidol Lactate (Haloperidol Lactate 5 Mg/1 Ml Inj) 5 mg IM Q6HR PRN PRN Reason: Agitation Fomepizole 790 mg/ Sodium (Chloride) 100.79 mls @ 201.58 mls/hr IV Q12H LUIS FELIPE Stop: 04/26/21 16:29 Last Admin: 04/25/21 04:30 Dose: 201.58 mls/hr Documented by: Fomepizole 1,190 mg/ Sodium (Chloride) 101.19 mls @ 202.38 mls/hr IV Q12H LUIS FELIPE Insulin Human Lispro (Insulin Lispro 100 Unit/Ml) 0 unit SUB-Q Q6HR LUIS FELIPE; Protocol Last Admin: 04/25/21 05:53 Dose: Not Given Documented by: Lorazepam (Lorazepam 2 Mg/Ml Vial) 2 mg IM Q4HR PRN PRN Reason: Agitation Multivitamins (Multivitamins ,Therapeutic Tab) 1 each PO QDAY [facility] Pyridoxine HCl (Pyridoxine 50 Mg Tab) 100 mg PO QDAY [facility] Last Admin: 04/24/21 18:17 Dose: 100 mg Documented by: Sodium Chloride (Sodium Chloride 0.9% 10 Ml Flush Syringe) 10 ml IV BID [facility] Last Admin: 04/24/21 23:05 Dose: 10 ml Documented by: Sodium Chloride (Sodium Chloride 0.9% 10 Ml Flush Syringe) 10 ml IV PRN PRN PRN Reason: LINE FLUSH Thiamine HCl (Thiamine 100 Mg Tab) 100 mg PO QDAY [facility] Last Admin: 04/24/21 18:17 Dose: 100 mg Documented by: Mental Status Exam - Vital signs Last Vital Signs Temp 97.2 F L 04/24/21 20:00 Pulse 88 04/25/21 08:10 Resp 11 L 04/25/21 08:10 BP 128/90 04/25/21 08:10 Pulse Ox 96 04/25/21 08:10 Results Result Diagrams: 04/25/21 04:56 04/25/21 04:56 Abnormal lab results 04/24/21 04/24/21 04/24/21 Range/Units 13:53 13:53 13:53 RBC 5.29 H (3.65-5.03) M/mm3 Hgb 15.9 H (11.8-15.2) gm/dl MCV 83 L (84-94) fl MCHC 36 H (32-34) % [place] % (Auto) 12.7 H (0.0-7.3) % [place] # (Auto) 1.3 H (0.0-0.8) K/mm3 Monocytes % (Manual) (0.0-7.3) % Monocytes # (Manual) (0.0-0.8) K/mm3 ABG pO2 (80.0-90.0) mm Hg ABG HCO3 (20.0-26.0) mmol/L ABG Base Excess (-2.0-3.0) mmol/L Carbon Dioxide 21 L (22-30) mmol/L BUN 7 L (9-20) mg/dL Creatinine (0.8-1.3) mg/dL Glucose (75-100) mg/dL POC Glucose (70-105) mg/dL Lactic Acid 5.30 H* (0.7-2.0) mmol/L Alkaline Phosphatase 154 H (35-129) units/L Salicylates (2.8-20.0) mg/dL Acetaminophen (10.0-30.0) ug/mL Valproic Acid (50-100) ug/mL 04/24/21 04/24/21 04/24/21 Range/Units 13:53 13:53 16:37 RBC (3.65-5.03) M/mm3 Hgb (11.8-15.2) gm/dl MCV (84-94) fl MCHC (32-34) % [place] % (Auto) (0.0-7.3) % [place] # (Auto) (0.0-0.8) K/mm3 Monocytes % (Manual) (0.0-7.3) % Monocytes # (Manual) (0.0-0.8) K/mm3 ABG pO2 92.5 H (80.0-90.0) mm Hg ABG HCO3 18.0 L (20.0-26.0) mmol/L ABG Base Excess -4.7 L (-2.0-3.0) mmol/L Carbon Dioxide (22-30) mmol/L BUN (9-20) mg/dL Creatinine (0.8-1.3) mg/dL Glucose (75-100) mg/dL POC Glucose (70-105) mg/dL Lactic Acid (0.7-2.0) mmol/L Alkaline Phosphatase (35-129) units/L Salicylates < 2.0 L (2.8-20.0) mg/dL Acetaminophen 5.0 L (10.0-30.0) ug/mL Valproic Acid 2.8 L (50-100) ug/mL 04/24/21 04/24/21 04/25/21 Range/Units 17:24 20:18 00:16 RBC (3.65-5.03) M/mm3 Hgb (11.8-15.2) gm/dl MCV (84-94) fl MCHC (32-34) % [place] % (Auto) (0.0-7.3) % [place] # (Auto) (0.0-0.8) K/mm3 Monocytes % (Manual) (0.0-7.3) % Monocytes # (Manual) (0.0-0.8) K/mm3 ABG pO2 (80.0-90.0) mm Hg ABG HCO3 (20.0-26.0) mmol/L ABG Base Excess (-2.0-3.0) mmol/L Carbon Dioxide (22-30) mmol/L BUN (9-20) mg/dL Creatinine (0.8-1.3) mg/dL Glucose (75-100) mg/dL POC Glucose 144 H 123 H (70-105) mg/dL Lactic Acid 6.30 H* (0.7-2.0) mmol/L Alkaline Phosphatase (35-129) units/L Salicylates (2.8-20.0) mg/dL Acetaminophen (10.0-30.0) ug/mL Valproic Acid (50-100) ug/mL 04/25/21 04/25/21 Range/Units 04:56 04:56 RBC 5.33 H (3.65-5.03) M/mm3 Hgb 16.1 H (11.8-15.2) gm/dl MCV 83 L (84-94) fl MCHC 37 H (32-34) % [place] % (Auto) (0.0-7.3) % [place] # (Auto) (0.0-0.8) K/mm3 Monocytes % (Manual) 11.0 H (0.0-7.3) % Monocytes # (Manual) 1.1 H (0.0-0.8) K/mm3 ABG pO2 (80.0-90.0) mm Hg ABG HCO3 (20.0-26.0) mmol/L ABG Base Excess (-2.0-3.0) mmol/L Carbon Dioxide (22-30) mmol/L BUN 6 L (9-20) mg/dL Creatinine 0.7 L (0.8-1.3) mg/dL Glucose 129 H (75-100) mg/dL POC Glucose (70-105) mg/dL Lactic Acid (0.7-2.0) mmol/L Alkaline Phosphatase (35-129) units/L Salicylates (2.8-20.0) mg/dL Acetaminophen (10.0-30.0) ug/mL Valproic Acid (50-100) ug/mL All other labs normal. Assessment and Plan - Psychiatric problem (1) Schizoaffective disorder Current Visit: Yes Status: Acute
--- NOTE | 2021-04-25 09:19 | Consultation ---
History of Present Illness - Reason for Consult Consult date: 04/25/21 metabolic acidosis - History of Present Illness This is a 26 year old man with depression who presents after antifreeze ing estion. Per report, patient told ED " I hate everything, I want to , I want to kill people". Poison control notified in ED, and the patient was initiated on Fomepizone therapy as an antidote specific for ethylene glycol ingestion. No HD was recommended with stable kidney function. The patient was also initiated on thiamine, and vitamin B6 therapy. Patient alert and awake this AM, denies any acute issues. Denies any dyspnea, edema, abnormal urination. Past History Past Medical History: diabetes, other (See HPI) Past Surgical History: No surgical history, Other (Reviewed) Social history: single, other (Polysubstance abuse) Family history: hypertension Medications and Allergies Allergies Allergy/AdvReac Type Severity Reaction Status Date / Time benztropine [From Cogentin] AdvReac Severe Unknown Verified 01/04/21 07:53 aripiprazole [From Abilify] AdvReac Unknown Verified 01/04/21 07:53 citalopram [From Celexa] AdvReac Unknown Verified 01/04/21 07:53 divalproex sodium AdvReac Unknown Verified 01/04/21 07:53 [From Depakote] lurasidone [From Latuda] AdvReac Unknown Verified 01/04/21 07:53 olanzapine [From Zyprexa] AdvReac Unknown Verified 01/04/21 07:53 paroxetine [From Paxil] AdvReac Unknown Verified 01/04/21 07:53 risperidone [From Risperdal] AdvReac Unknown Verified 01/04/21 07:53 ziprasidone [From Geodon] AdvReac Unknown Verified 01/04/21 07:53 Home Medications Medication Instructions Recorded Confirmed Last Taken Type Basaglar Kwikpen U-100 20 units SQ DAILY 06/04/18 06/04/18 Unknown History Ventolin HFA 2 puff IH QID PRN 06/04/18 06/04/18 Unknown History metFORMIN 500 mg PO TID 06/04/18 06/04/18 Unknown History Cyclobenzaprine [Flexeril] 10 mg PO QHS PRN #20 tablet 10/03/18 Unknown Rx Ibuprofen [Motrin 800 MG tab] 800 mg PO Q8HR PRN #30 tablet 10/03/18 Unknown Rx Albuterol Mdi (or & Nicu Only) 2 puff IH Q4HR PRN #1 inhalation 03/02/19 Unknown Rx [ProAir HFA Inhaler] Cetirizine HCl/Pseudoephedrine 1 each PO DAILY #30 tab.er.12h 03/02/19 Unknown Rx [Zyrtec-D Tablet] Fluticasone [Flonase] 2 spray NS QDAY #1 bottle 03/02/19 Unknown Rx Prednisone [predniSONE 10 mg 10 mg PO .TAPER #1 tab.ds.pk 03/02/19 Unknown Rx (6-Day Pack, 21 Tabs)] HYDROcodone/APAP 5-325 [[place] 1 - 2 each PO Q6HR PRN #14 tablet 04/08/19 Unknown Rx 5/325] Ibuprofen [Motrin 800 MG tab] 800 mg PO Q8HR PRN #20 tablet 04/08/19 Unknown Rx Cyclobenzaprine HCl [Flexeril 5 MG 5 mg PO TID PRN #10 tab 10/28/19 Unknown Rx TAB] Active Meds: Active Medications Albuterol (Albuterol 2.5 Mg/3 Ml Nebu) 2.5 mg IH Q4HRT PRN PRN Reason: Shortness Of Breath Dextrose (Dextrose 50% In Water (25gm) 50 Ml Syringe) 50 ml IV Q30MIN PRN; Protocol PRN Reason: Hypoglycemia Folic Acid (Folic Acid 1 Mg Tab) 1 mg PO QDAY [facility]IS FELIPE Haloperidol Lactate (Haloperidol Lactate 5 Mg/1 Ml Inj) 5 mg IM Q6HR PRN PRN Reason: Agitation Fomepizole 790 mg/ Sodium (Chloride) 100.79 mls @ 201.58 mls/hr IV Q12H LUIS FELIPE Stop: 04/26/21 16:29 Last Admin: 04/25/21 04:30 Dose: 201.58 mls/hr Documented by: Fomepizole 1,190 mg/ Sodium (Chloride) 101.19 mls @ 202.38 mls/hr IV Q12H LUIS FELIPE Insulin Human Lispro (Insulin Lispro 100 Unit/Ml) 0 unit SUB-Q Q6HR LUIS FELIPE; Protocol Last Admin: 04/25/21 05:53 Dose: Not Given Documented by: Lorazepam (Lorazepam 2 Mg/Ml Vial) 2 mg IM Q4HR PRN PRN Reason: Agitation Multivitamins (Multivitamins ,Therapeutic Tab) 1 each PO QDAY [facility] Pyridoxine HCl (Pyridoxine 50 Mg Tab) 100 mg PO QDAY [facility] Last Admin: 04/24/21 18:17 Dose: 100 mg Documented by: Sodium Chloride (Sodium Chloride 0.9% 10 Ml Flush Syringe) 10 ml IV BID [facility] Last Admin: 04/24/21 23:05 Dose: 10 ml Documented by: Sodium Chloride (Sodium Chloride 0.9% 10 Ml Flush Syringe) 10 ml IV PRN PRN PRN Reason: LINE FLUSH Thiamine HCl (Thiamine 100 Mg Tab) 100 mg PO QDAY [facility] Last Admin: 04/24/21 18:17 Dose: 100 mg Documented by: Review of Systems All systems: negative (as per HPI) Exam - Vital Signs Vital signs: Vital Signs Temp Pulse Resp BP Pulse Ox 98.6 F 90 20 126/77 99 04/24/21 13:10 04/24/21 13:10 04/24/21 13:10 04/24/21 13:10 04/24/21 13:10 - General Appearance General appearance: well-developed, well-nourished EENT: ATNC Neck: Present: neck supple, trachea midline Respiratory: Clear to Ascultation Heart: regular, S1S2 Gastrointestinal: Present: normoactive bowel sounds Integumentary: no rash, warm and dry Neurologic: no focal deficit, no asterixis, alert and oriented x3 Results - Lab Results 04/25/21 04:56 04/25/21 04:56 Most recent lab results ABG pH 7.421 pH Units (7.350-7.450) 04/24/21 16:37 ABG pCO2 28.3 mm Hg 04/24/21 16:37 ABG pO2 92.5 mm Hg (80.0-90.0) H 04/24/21 16:37 ABG HCO3 18.0 mmol/L (20.0-26.0) L 04/24/21 16:37 ABG O2 Saturation 97.3 % (95.0-99.0) 04/24/21 16:37 Calcium 9.1 mg/dL (8.4-10.2) 04/25/21 04:56 Magnesium 1.80 mg/dL (1.7-2.3) 04/24/21 13:53 Assessment and Plan # Ethylene glycol poisoning with high osmolar gap - agree with current management including fomepizole, would continue IVF as well given lactic acidosis - urinalysis bland, no evidence of crystal formation - BP stable - no emergent need for HD, monitor labs and urine output closely; would update poison control to ensure no other recommendations for acute ingestion # Lactic acidosis - recommend IVF # Suicide attempt - psychiatry input appreciated
[2021-04-25] MEDS: FOLIC ACID 1 MG TAB PO SCH (10:11)
[2021-04-25] MEDS: MULTIVITAMINS ,THERAPEUTIC TAB PO SCH (10:11)
[2021-04-25] MEDS: THIAMINE 100 MG TAB PO SCH (10:12)
[2021-04-25] MEDS: PYRIDOXINE 50 MG TAB PO SCH (10:34)
[2021-04-25] MEDS: ALBUTEROL 2.5 MG/3 ML NEBU IH PRN (12:32)
--- NOTE | 2021-04-25 13:45 | Consultation ---
History of Present Illness Consult date: 04/25/21 Requesting physician: JOHN BECKER Reason for consult: other (Antifreeze Intoxication; ? Suicide Attempt) History of present illness: PULMONARY/CCM CONSULT NOTE (Full dictation # [id number]) Please see dictated notes for full details Past History Past Medical History: diabetes, other (See HPI) Past Surgical History: No surgical history, Other (Reviewed) Social history: single, other (Polysubstance abuse) Family history: hypertension Medications and Allergies Allergies Allergy/AdvReac Type Severity Reaction Status Date / Time benztropine [From Cogentin] AdvReac Severe Unknown Verified 01/04/21 07:53 aripiprazole [From Abilify] AdvReac Unknown Verified 01/04/21 07:53 citalopram [From Celexa] AdvReac Unknown Verified 01/04/21 07:53 divalproex sodium AdvReac Unknown Verified 01/04/21 07:53 [From Depakote] lurasidone [From Latuda] AdvReac Unknown Verified 01/04/21 07:53 olanzapine [From Zyprexa] AdvReac Unknown Verified 01/04/21 07:53 paroxetine [From Paxil] AdvReac Unknown Verified 01/04/21 07:53 risperidone [From Risperdal] AdvReac Unknown Verified 01/04/21 07:53 ziprasidone [From Geodon] AdvReac Unknown Verified 01/04/21 07:53 Home Medications Medication Instructions Recorded Confirmed Last Taken Type Basaglar Migdaliapen U-100 20 units SQ DAILY 06/04/18 06/04/18 Unknown History Ventolin HFA 2 puff IH QID PRN 06/04/18 06/04/18 Unknown History metFORMIN 500 mg PO TID 06/04/18 06/04/18 Unknown History Cyclobenzaprine [Flexeril] 10 mg PO QHS PRN #20 tablet 10/03/18 Unknown Rx RX: Ibuprofen [Motrin 800 MG tab] 800 mg PO Q8HR PRN #30 tablet 10/03/18 Unknown Rx Cetirizine HCl/Pseudoephedrine 1 each PO DAILY #30 tab.er.12h 03/02/19 Unknown Rx [Zyrtec-D Tablet] Fluticasone [Flonase] 2 spray NS QDAY #1 bottle 03/02/19 Unknown Rx Prednisone [predniSONE 10 mg 10 mg PO .TAPER #1 tab.ds.pk 03/02/19 Unknown Rx (6-Day Pack, 21 Tabs)] RX: Albuterol Mdi (or & Nicu Only) 2 puff IH Q4HR PRN #1 inhalation 03/02/19 Unknown Rx [ProAir HFA Inhaler] HYDROcodone/APAP 5-325 [[place] 1 - 2 each PO Q6HR PRN #14 tablet 04/08/19 Unknown Rx 5/325] RX: Ibuprofen [Motrin 800 MG tab] 800 mg PO Q8HR PRN #20 tablet 04/08/19 Unknown Rx Cyclobenzaprine HCl [Flexeril 5 MG 5 mg PO TID PRN #10 tab 10/28/19 Unknown Rx TAB] Active Meds: Active Medications Albuterol (Albuterol 2.5 Mg/3 Ml Nebu) 2.5 mg IH Q4HRT PRN PRN Reason: Shortness Of Breath Last Admin: 04/25/21 12:32 Dose: 2.5 mg Documented by: Dextrose (Dextrose 50% In Water (25gm) 50 Ml Syringe) 50 ml IV Q30MIN PRN; Protocol PRN Reason: Hypoglycemia Folic Acid (Folic Acid 1 Mg Tab) 1 mg PO QDAY [facility] Last Admin: 04/25/21 10:11 Dose: 1 mg Documented by: Haloperidol Lactate (Haloperidol Lactate 5 Mg/1 Ml Inj) 5 mg IM Q6HR PRN PRN Reason: Agitation Fomepizole 790 mg/ Sodium (Chloride) 100.79 mls @ 201.58 mls/hr IV Q12H LUIS FELIPE Stop: 04/26/21 16:29 Last Admin: 04/25/21 04:30 Dose: 201.58 mls/hr Documented by: Fomepizole 1,190 mg/ Sodium (Chloride) 101.19 mls @ 202.38 mls/hr IV Q12H LUIS FELIPE Insulin Human Lispro (Insulin Lispro 100 Unit/Ml) 0 unit SUB-Q Q6HR LUIS FELIPE; Protocol Last Admin: 04/25/21 12:35 Dose: Not Given Documented by: Lorazepam (Lorazepam 2 Mg/Ml Vial) 2 mg IM Q4HR PRN PRN Reason: Agitation Multivitamins (Multivitamins ,Therapeutic Tab) 1 each PO QDAY [facility] Last Admin: 04/25/21 10:11 Dose: 1 each Documented by: Pyridoxine HCl (Pyridoxine 50 Mg Tab) 100 mg PO QDAY [facility] Last Admin: 04/25/21 10:34 Dose: 100 mg Documented by: Sodium Chloride (Sodium Chloride 0.9% 10 Ml Flush Syringe) 10 ml IV BID [facility] Last Admin: 04/25/21 10:12 Dose: 10 ml Documented by: Sodium Chloride (Sodium Chloride 0.9% 10 Ml Flush Syringe) 10 ml IV PRN PRN PRN Reason: LINE FLUSH Thiamine HCl (Thiamine 100 Mg Tab) 100 mg PO QDAY [facility] Last Admin: 04/25/21 10:12 Dose: 100 mg Documented by: Physical Examination Vital signs: Vital Signs Temp Pulse Resp BP Pulse Ox 98.6 F 90 20 126/77 99 04/24/21 13:10 04/24/21 13:10 04/24/21 13:10 04/24/21 13:10 04/24/21 13:10 Results - Laboratory Findings CBC and BMP: 04/25/21 04:56 04/25/21 04:56 ABG ABG pH 7.421 pH Units (7.350-7.450) 04/24/21 16:37 ABG pCO2 28.3 mm Hg 04/24/21 16:37 ABG pO2 92.5 mm Hg (80.0-90.0) H 04/24/21 16:37 ABG O2 Saturation 97.3 % (95.0-99.0) 04/24/21 16:37 Abnormal lab findings: Abnormal Labs 04/24/21 04/24/21 04/24/21 13:53 13:53 13:53 RBC 5.29 H Hgb 15.9 H MCV 83 L MCHC 36 H [place] % (Auto) 12.7 H [place] # (Auto) 1.3 H Monocytes % (Manual) Monocytes # (Manual) ABG pO2 ABG HCO3 ABG Base Excess Carbon Dioxide 21 L BUN 7 L Creatinine Glucose POC Glucose Lactic Acid 5.30 H* Alkaline Phosphatase 154 H Salicylates Acetaminophen Valproic Acid 04/24/21 04/24/21 04/24/21 13:53 13:53 16:37 RBC Hgb MCV MCHC [place] % (Auto) [place] # (Auto) Monocytes % (Manual) Monocytes # (Manual) ABG pO2 92.5 H ABG HCO3 18.0 L ABG Base Excess -4.7 L Carbon Dioxide BUN Creatinine Glucose POC Glucose Lactic Acid Alkaline Phosphatase Salicylates < 2.0 L Acetaminophen 5.0 L Valproic Acid 2.8 L 04/24/21 04/24/21 04/25/21 17:24 20:18 00:16 RBC Hgb MCV MCHC [place] % (Auto) [place] # (Auto) Monocytes % (Manual) Monocytes # (Manual) ABG pO2 ABG HCO3 ABG Base Excess Carbon Dioxide BUN Creatinine Glucose POC Glucose 144 H 123 H Lactic Acid 6.30 H* Alkaline Phosphatase Salicylates Acetaminophen Valproic Acid 04/25/21 04/25/21 04:56 04:56 RBC 5.33 H Hgb 16.1 H MCV 83 L MCHC 37 H [place] % (Auto) [place] # (Auto) Monocytes % (Manual) 11.0 H Monocytes # (Manual) 1.1 H ABG pO2 ABG HCO3 ABG Base Excess Carbon Dioxide BUN 6 L Creatinine 0.7 L Glucose 129 H POC Glucose Lactic Acid Alkaline Phosphatase Salicylates Acetaminophen Valproic Acid
--- NOTE | 2021-04-25 16:51 | Progress Note ---
Assessment and Plan The high probability OF a clinically significant sudden or life-threatening deterioration of the cardiorespiratory system and endocrine system required my full and direct attention, intervention and postoperative management. The aggregate critical care time was 35 minutes. The time is in addition to time spent performing reported procedures but includes the followin: Data review and interpretation 2: Patient assessment and monitoring of vital signs 3: Documentation 4:: Medication orders and management Assessment and Plan - Patient Problems (1) Ethylene glycol poisoning Current Visit: Yes Status: Acute Qualifiers: Encounter type: initial encounter Plan to address problem: Poison control notified. Patient admitted to ICU and initiated on Fomepizone therapy, vitamin B6 therapy, as well as thiamine. CMP, repeat CMP in a.m., neuro check, seizure precautions. Patient stable Patient on fomepizole (2) Suicide attempt Current Visit: Yes Status: Acute Plan to address problem: Patient placed on 1013, mental health team consulted in ED. (3) High serum osmolar gap Current Visit: Yes Status: Acute Plan to address problem: Supportive care, poison control notified, CMP, repeat CMP in a.m. (4) Lactic acidosis Current Visit: Yes Status: Acute Improved (5) Nicotine dependence Current Visit: Yes Status: Acute Qualifiers: Nicotine product type: cigarettes Substance use status: in withdrawal Qualified Code(s): F17.213 - Nicotine dependence, cigarettes, with withdrawal Plan to address problem: Smoking cessation counseling, supportive care, behavior change counseling, +15 minutes. (6) Polysubstance abuse Current Visit: Yes Status: Acute Plan to address problem: Supportive care, neuro check, seizure precautions, IV fluid resuscitation therapy as clinically indicated. Urine drug screen (7) DVT prophylaxis Current Visit: Yes Status: Acute Plan to address problem: SCD to bilateral lower extremities while in bed, patient is ambulatory Subjective Date of service: 04/25/21 Principal diagnosis: Antifreeze ingestion Interval history: 26 YO Male with Depression, Suicidal Ideation, Asthma, PTSD, PSA, Nicotine Dependence, DM, Asthma presents to ED for evaluation. Pt reports " I hate everything, I want to , I want to kill people". Patient reports consuming 1 cup of antifreeze 15 minutes prior to presentation to ER in an attempt to take his own life. Patient transported to [facility] via private vehicle for further care and evaluation of the aforementioned symptoms. The patient is seen and evaluated in the emergency department. All lab and imaging studies reviewed. Patient found to have suicidal Frederic ideation complicated by suicide attempt with antifreeze ingestion, metabolic acidosis, psychosis. Patient admitted to ICU. Poison control notified, and the patient was initiated on Fomepizone therapy as an antidote specific for ethylene glycol ingestion due to concern regarding ensuing end organ damage as per poison control recommendations. The patient was also initiated on thiamine, and vitamin B6 therapy. The patient was placed on 1013 and mental health consult placed in ED. critical care team consulted in ED. Nephrology team consulted in ED. No further history is obtainable. Patient minimally cooperative with exam and interview. No prior admission for review. All medication listed at time of admission has been reconciled. 04/25/2021 Patient stable Patient on 1013 Objective - Constitutional Vitals: Vital Signs - 12hr 04/25/21 04/25/21 04/25/21 04:40 04:50 05:00 Temperature Pulse Rate 77 65 75 Pulse Rate [ Posterior Bilateral Throughout] Respiratory 22 18 19 Rate Respiratory Rate [Posterior Bilateral Throughout] Blood Pressure 116/65 116/65 116/78 O2 Sat by Pulse 95 93 89 Oximetry 04/25/21 04/25/21 04/25/21 05:10 05:20 05:30 Temperature Pulse Rate 67 65 64 Pulse Rate [ Posterior Bilateral Throughout] Respiratory 18 22 17 Rate Respiratory Rate [Posterior Bilateral Throughout] Blood Pressure 116/78 116/78 124/72 O2 Sat by Pulse 94 94 90 Oximetry 04/25/21 04/25/21 04/25/21 05:40 05:50 06:00 Temperature Pulse Rate 68 64 80 Pulse Rate [ Posterior Bilateral Throughout] Respiratory 19 21 17 Rate Respiratory Rate [Posterior Bilateral Throughout] Blood Pressure 124/72 124/72 117/77 O2 Sat by Pulse 94 93 90 Oximetry 04/25/21 04/25/21 04/25/21 06:10 06:20 06:30 Temperature Pulse Rate 80 77 78 Pulse Rate [ Posterior Bilateral Throughout] Respiratory 23 26 H 15 Rate Respiratory Rate [Posterior Bilateral Throughout] Blood Pressure 117/77 117/77 107/68 O2 Sat by Pulse 91 92 87 Oximetry 04/25/21 04/25/21 04/25/21 06:40 06:50 07:00 Temperature Pulse Rate 85 94 H 89 Pulse Rate [ Posterior Bilateral Throughout] Respiratory 23 15 16 Rate Respiratory Rate [Posterior Bilateral Throughout] Blood Pressure 107/68 107/68 128/87 O2 Sat by Pulse 89 96 87 Oximetry 04/25/21 04/25/21 04/25/21 07:10 07:20 07:30 Temperature Pulse Rate 80 103 H Pulse Rate [ Posterior Bilateral Throughout] Respiratory 28 H 29 H 26 H Rate Respiratory Rate [Posterior Bilateral Throughout] Blood Pressure 128/87 128/87 127/93 O2 Sat by Pulse 92 93 73 L Oximetry 04/25/21 04/25/21 04/25/21 07:40 07:50 08:00 Temperature Pulse Rate 75 86 Pulse Rate [ Posterior Bilateral Throughout] Respiratory 27 H 14 14 Rate Respiratory Rate [Posterior Bilateral Throughout] Blood Pressure 127/93 127/93 128/90 O2 Sat by Pulse 94 93 94 Oximetry 04/25/21 04/25/21 04/25/21 08:10 08:20 08:30 Temperature Pulse Rate 88 88 Pulse Rate [ Posterior Bilateral Throughout] Respiratory 11 L 15 13 Rate Respiratory Rate [Posterior Bilateral Throughout] Blood Pressure 128/90 128/90 135/93 O2 Sat by Pulse 96 93 86 Oximetry 04/25/21 04/25/21 04/25/21 08:40 08:50 09:00 Temperature Pulse Rate 97 H 72 89 Pulse Rate [ Posterior Bilateral Throughout] Respiratory 19 13 17 Rate Respiratory Rate [Posterior Bilateral Throughout] Blood Pressure 128/90 128/90 144/82 O2 Sat by Pulse 91 91 85 Oximetry 04/25/21 04/25/21 04/25/21 09:10 09:20 09:30 Temperature Pulse Rate 83 73 120 H Pulse Rate [ Posterior Bilateral Throughout] Respiratory 24 20 28 H Rate Respiratory Rate [Posterior Bilateral Throughout] Blood Pressure 135/93 135/93 150/99 O2 Sat by Pulse 90 92 85 Oximetry 04/25/21 04/25/21 04/25/21 09:40 09:50 10:00 Temperature Pulse Rate 106 H 102 H 103 H Pulse Rate [ Posterior Bilateral Throughout] Respiratory 21 20 24 Rate Respiratory Rate [Posterior Bilateral Throughout] Blood Pressure 144/82 144/82 163/116 O2 Sat by Pulse 90 92 91 Oximetry 04/25/21 04/25/21 04/25/21 10:10 10:20 10:30 Temperature Pulse Rate 95 H 82 Pulse Rate [ Posterior Bilateral Throughout] Respiratory 28 H 20 24 Rate Respiratory Rate [Posterior Bilateral Throughout] Blood Pressure 141/86 141/86 127/81 O2 Sat by Pulse 93 93 Oximetry 04/25/21 04/25/21 04/25/21 10:40 11:00 11:30 Temperature Pulse Rate 105 H 99 H 86 Pulse Rate [ Posterior Bilateral Throughout] Respiratory 24 40 H 33 H Rate Respiratory Rate [Posterior Bilateral Throughout] Blood Pressure 141/86 138/92 144/92 O2 Sat by Pulse 98 80 L 80 L Oximetry 04/25/21 04/25/21 04/25/21 12:00 12:01 12:10 Temperature 97.8 F Pulse Rate 102 H 108 H Pulse Rate [ Posterior Bilateral Throughout] Respiratory 20 20 Rate Respiratory Rate [Posterior Bilateral Throughout] Blood Pressure 135/88 135/88 O2 Sat by Pulse 94 Oximetry 04/25/21 04/25/21 04/25/21 12:20 12:30 12:32 Temperature Pulse Rate 100 H 96 H Pulse Rate [ 85 Posterior Bilateral Throughout] Respiratory 13 14 Rate Respiratory 18 Rate [Posterior Bilateral Throughout] Blood Pressure 135/88 135/78 O2 Sat by Pulse 95 92 Oximetry 04/25/21 04/25/21 04/25/21 12:40 12:50 13:00 Temperature Pulse Rate 108 H 99 H 100 H Pulse Rate [ Posterior Bilateral Throughout] Respiratory 12 12 25 H Rate Respiratory Rate [Posterior Bilateral Throughout] Blood Pressure 135/78 135/78 127/89 O2 Sat by Pulse 95 91 91 Oximetry 04/25/21 04/25/21 04/25/21 13:10 13:20 13:30 Temperature Pulse Rate 107 H 113 H 108 H Pulse Rate [ Posterior Bilateral Throughout] Respiratory 26 H 24 18 Rate Respiratory Rate [Posterior Bilateral Throughout] Blood Pressure 135/78 135/78 126/77 O2 Sat by Pulse 93 92 86 Oximetry 04/25/21 04/25/21 04/25/21 13:40 13:50 14:00 Temperature Pulse Rate 113 H 92 H 99 H Pulse Rate [ Posterior Bilateral Throughout] Respiratory 24 26 H 27 H Rate Respiratory Rate [Posterior Bilateral Throughout] Blood Pressure 126/77 126/77 106/61 O2 Sat by Pulse 93 94 86 Oximetry 04/25/21 04/25/21 04/25/21 14:10 14:20 14:30 Temperature Pulse Rate 88 98 H 101 H Pulse Rate [ Posterior Bilateral Throughout] Respiratory 27 H 31 H 39 H Rate Respiratory Rate [Posterior Bilateral Throughout] Blood Pressure 106/61 106/61 109/69 O2 Sat by Pulse 92 93 80 L Oximetry 04/25/21 04/25/21 04/25/21 14:40 14:50 15:00 Temperature Pulse Rate 90 113 H 99 H Pulse Rate [ Posterior Bilateral Throughout] Respiratory 24 30 H 30 H Rate Respiratory Rate [Posterior Bilateral Throughout] Blood Pressure 109/69 109/69 132/87 O2 Sat by Pulse 92 95 Oximetry 04/25/21 04/25/21 04/25/21 15:10 15:20 15:30 Temperature Pulse Rate 100 H 103 H Pulse Rate [ Posterior Bilateral Throughout] Respiratory 20 17 15 Rate Respiratory Rate [Posterior Bilateral Throughout] Blood Pressure 132/87 132/87 131/90 O2 Sat by Pulse 93 95 Oximetry 04/25/21 16:00 Temperature 98.6 F Pulse Rate Pulse Rate [ Posterior Bilateral Throughout] Respiratory Rate Respiratory Rate [Posterior Bilateral Throughout] Blood Pressure O2 Sat by Pulse Oximetry General appearance: Present: no acute distress, well-nourished - EENT Eyes: PERRL, EOM intact ENT: hearing intact, clear oral mucosa Ears: bilateral: normal - Neck Neck: supple, normal ROM - Respiratory Respiratory effort: normal Respiratory: bilateral: CTA - Breasts Breasts: normal - Cardiovascular Heart rate: 78 Rhythm: regular Heart Sounds: Present: S1 & S2. Absent: gallop, rub Extremities: pulses intact, No edema, normal color, Full ROM - Gastrointestinal General gastrointestinal: Present: soft, non-tender, non-distended, normal bowel sounds - Genitourinary Male genitourinary: normal - Integumentary Integumentary: clear, warm, dry - Musculoskeletal Musculoskeletal: 1, strength equal bilaterally - Neurologic Neurologic: moves all extremities - Psychiatric Psychiatric: memory intact, appropriate mood/affect, intact judgment & insight - Allied health notes Allied health notes reviewed: nursing, case management - Labs CBC & Chem 7: 04/26/21 06:12 04/26/21 06:12 Labs: Abnormal lab results 04/24/21 04/24/21 04/24/21 Range/Units 16:37 17:24 20:18 RBC (3.65-5.03) M/mm3 Hgb (11.8-15.2) gm/dl MCV (84-94) fl MCHC (32-34) % Monocytes % (Manual) (0.0-7.3) % Monocytes # (Manual) (0.0-0.8) K/mm3 ABG pO2 92.5 H (80.0-90.0) mm Hg ABG HCO3 18.0 L (20.0-26.0) mmol/L ABG Base Excess -4.7 L (-2.0-3.0) mmol/L BUN (9-20) mg/dL Creatinine (0.8-1.3) mg/dL Glucose (75-100) mg/dL POC Glucose 144 H (70-105) mg/dL Lactic Acid 6.30 H* (0.7-2.0) mmol/L 04/25/21 04/25/21 04/25/21 Range/Units 00:16 04:56 04:56 RBC 5.33 H (3.65-5.03) M/mm3 Hgb 16.1 H (11.8-15.2) gm/dl MCV 83 L (84-94) fl MCHC 37 H (32-34) % Monocytes % (Manual) 11.0 H (0.0-7.3) % Monocytes # (Manual) 1.1 H (0.0-0.8) K/mm3 ABG pO2 (80.0-90.0) mm Hg ABG HCO3 (20.0-26.0) mmol/L ABG Base Excess (-2.0-3.0) mmol/L BUN 6 L (9-20) mg/dL Creatinine 0.7 L (0.8-1.3) mg/dL Glucose 129 H (75-100) mg/dL POC Glucose 123 H (70-105) mg/dL Lactic Acid (0.7-2.0) mmol/L 04/25/21 Range/Units 11:52 RBC (3.65-5.03) M/mm3 Hgb (11.8-15.2) gm/dl MCV (84-94) fl MCHC (32-34) % Monocytes % (Manual) (0.0-7.3) % Monocytes # (Manual) (0.0-0.8) K/mm3 ABG pO2 (80.0-90.0) mm Hg ABG HCO3 (20.0-26.0) mmol/L ABG Base Excess (-2.0-3.0) mmol/L BUN (9-20) mg/dL Creatinine (0.8-1.3) mg/dL Glucose (75-100) mg/dL POC Glucose 119 H (70-105) mg/dL Lactic Acid (0.7-2.0) mmol/L
[2021-04-25] MEDS: ENOXAPARIN 40 MG/0.4 ML INJ SUB-Q SCH (22:26)
[2021-04-26] MEDS: INSULIN LISPRO 100 UNIT/ML SUB-Q SCH ×5 (03:27→22:28)
[2021-04-26] MEDS: FOMEPIZOLEV IV SCH ×2 (03:34→16:00)
[2021-04-26] MEDS: SODIUM CHLORIDE 0.9% IV SCH ×2 (03:34→16:00)
[2021-04-26] MEDS: ALBUTEROL 2.5 MG/3 ML NEBU IH PRN (05:14)
--- NOTE | 2021-04-26 06:43 | Consultation ---
DATE OF CONSULTATION: 04/25/2021 PULMONARY CRITICAL CARE CONSULTATION CONSULTING PHYSICIAN: Dr. Logan. REASON FOR CONSULTATION: Antifreeze overdose. CHIEF COMPLAINT AND HISTORY OF PRESENT ILLNESS: The patient is a 26-year-old male with past medical history significant amongst other things for depression, suicidal ideation, posttraumatic stress disorder, asthma, who came into the Emergency Room complaining that he wanted to kill himself, he wanted to , he wanted to kill people. He stated that he had drank a couple of antifreeze about 15 minutes prior to coming to the ER. In the Emergency Room, he was evaluated. Poison control was notified. He was started on fomepizole therapy, was placed on 1013 hold and transferred to the intensive care unit for close observation. We are asked to assist with management. When I stopped by to check on him, he was resting peacefully in bed. Denied any trouble. Denied any CVA angle pain. Denies dysuria, denies hematuria. Denies any trouble with his vision. Denies any headaches. He stated that he was withdrawing from his medication, which is, I believe the antidepressant he takes and that is why he was acting that way yesterday. This really is as much of the history of presentation as I have. He denies a history of tobacco use at this time. PAST MEDICAL HISTORY: Again, diabetes. He is obese, history of asthma, history of depression, history of posttraumatic stress disorder, history of diabetes. PAST SURGICAL HISTORY: Unknown. MEDICATIONS: He was on at the time I stopped by to see him were reviewed. Pertinent medications include the following: Albuterol 2.5 mg nebulized q. 4 hours p.r.n. shortness of breath, folic acid 1 mg p.o. daily, fomepizole per protocol, he was on bag 2 of 4 I believe, Haldol 5 mg IM q. 6 hours p.r.n. agitation, insulin via sliding scale, Ativan 2 mg IV q. 4 hours p.r.n. agitation, daily multivitamin, vitamin 600 mg p.o. daily, thiamine 100 mg p.o. daily. ALLERGIES: HE IS ALLERGIC TO BENZTROPINE, ARIPIPRAZOLE, CITALOPRAM, DIVALPROEX SODIUM, NATURE OF THIS ALLERGY IS UNKNOWN. DIET: Obese gentleman. Denies acute weight loss or gain in the preceding few weeks to months. FAMILY AND SOCIAL HISTORY: Apparently lived in the community, has a history of polysubstance abuse. There is a family history of hypertension. He denies tobacco use. He smokes marijuana. He denies illicit drug use or alcohol use otherwise. REVIEW OF SYSTEMS: Difficult to obtain secondary to his mental status; however. Since he has been here, no gross hematochezia or melena, no gross hematuria, no hematemesis, no hemoptysis. He denies palpitations, denies heat or cold intolerance. Complete 13 system review of system was obtained. Pertinent positives and/or negatives as in body of history above, otherwise noncontributory. PHYSICAL EXAMINATION: VITAL SIGNS: On presentation and since he has been afebrile, temperature was 98.6, pulse of 90, respiratory rate of 20, blood pressure 126/77, O2 sats were 99%, inspired oxygen concentration at that time was not recorded. GENERAL: He is a young, obese male. Normocephalic and atraumatic. Talking to me in full sentences with normal respiratory effort at rest. HEAD, EYES, EARS, NOSE AND THROAT: Anicteric. No conjunctival erythema. Oropharynx was moist. Mallampati II oropharynx. NECK: No gross jugular venous distention, no thyromegaly. Grossly, there were no palpable lymph nodes in the supraclavicular or submandibular lymph node chains. LUNGS: Auscultation of both lung zuniga unremarkable. Good bilateral air movement. No wheezing. HEART: Sounds 1 and 2 are heard, regular rate and rhythm at the time of my evaluation. ABDOMEN: Soft, full, bowel sounds are positive, nontender, no palpable hepatosplenomegaly. BACK: Examination of the back without any CVA angle tenderness. EXTREMITIES: Without overt digital clubbing or cyanosis, no pedal edema. Pedal pulses are 2+ bilaterally. NEUROLOGIC: Pupils are equal, round, about 4 mm, reactive to light. Extraocular muscle movements are intact. He moves all 4 extremities spontaneously. PSYCHIATRIC: His mood was normal and his affect was appropriate. He had intact judgment and insight. SKIN: Normal turgor without overt cellulitis or rash. LABORATORY DATA: From my review are as follows: Admission white cell count 10,200, hemoglobin 15.9, hematocrit 44.1, platelet count was 273. No manual differential. Arterial blood gas showed a pH of 7.42, pCO2 of 28, pO2 of 93 that was on room air. Serum sodium was 139, potassium 3.8, chloride 103, bicarbonate 21, BUN 7, creatinine 0.8, glucose 321. Lactic acid level was 5.3. Liver function test within normal limits. Urinalysis unremarkable. Urine drug screen was presumptive positive for marijuana, otherwise negative. Alcohol, Depakote, Tylenol and aspirin levels within normal limits. Coronavirus PCR was done and is negative. Most recent labs, BUN 6, creatinine 0.0. Lactic acid peaked at 6.3. No microbiology studies. No radiographic studies. ASSESSMENT: 1. Suicide attempt with antifreeze ingestion. 2. Antifreeze ingestion. 3. History of depression. 4. Posttraumatic stress disorder. 5. Obesity. 6. Diabetes. 7. Prior suicide attempt. PLAN: He is doing better. He has been seen by the psychiatrist. We will follow their recommendations regarding further management. He will be kept in 1013 for now. Nephrology consultation has been placed. I will defer to them. He is going to complete fomepizole course. He does not seem to have taken a whole lot of antifreeze and has not shown any adverse secondary organ damage at this time. He will be watched closely otherwise. He is going to be on GI and DVT prophylaxis. Flu and pneumonia vaccination will be addressed per protocol. Looks better, will be transferring him downgrading to the intermediate care unit at this point. Thank you very much for the consult. We will follow along and make further recommendations as picture progresses/becomes clearer. TID: [id number] RECEIPT: [id number] KALIE/LUCAS/MANUEL GRIFFIN
[2021-04-26 06:50] LABS: Basophils # (Auto) 0.1 K/mm3 (0.0-0.1); Basophils % (Auto) 0.9 % (0.0-1.8); Eosinophils # (Auto) 0.6 K/mm3 (0.0-0.4); Eosinophils % (Auto) 4.8 % (0.0-4.3); Lymphocytes % (Auto) 32.9 % (13.4-35.0); Mean Corpuscular HGB Conc 36 % (32-34); Mean Corpuscular Volume 82 fl (84-94); Monocytes # (Auto) 1.7 K/mm3 (0.0-0.8); Platelet Count 258 K/mm3 (140-440); Red Blood Count 5.78 M/mm3 (3.65-5.03); Red Cell Distribution Width 13.6 % (13.2-15.2)
[2021-04-26 06:58] LABS: Hematocrit 47.5 % (35.5-45.6); Hemoglobin 17.3 gm/dl (11.8-15.2)
[2021-04-26 07:10] LABS: Alanine Aminotransferase 24 units/L (7-56); Albumin 4.4 g/dL (3.9-5); BUN/Creatinine Ratio 10; Blood Urea Nitrogen 9 mg/dL (9-20); Calcium 9.5 mg/dL (8.4-10.2); Hemolysis Index 14
--- NOTE | 2021-04-26 09:07 | Progress Note ---
Subjective - Reason for Consult Consult date: 04/26/21 Reason for consult: MHE Requesting physician: MARISA DILLON - Chief Complaint Chief complaint: psych Progress Patient endorses still hearing voices though not suicidal at the moment, states he feels more energized like his prior self this AM. Reports feeling better today, ask when he would be getting his medication Latuda so his symptoms can get better. REVIEW OF SYSTEMS Constitutional: Negative for weight loss ENT: Negative for stridor Respiratory: Negative for cough or hemoptysis All other systems reviewed and are negative MENTAL STATUS EXAMINATION General Appearance and Behavior: Age appropriate, good hygiene, wearing appropriate clothes,, good eye contact Cooperation: Participating/engaged Psychomotor Behavior: Psychomotor normal Mood: good Affect and affective range: congruent with mood Thought Process: illogical Thought Content: Auditory hallucination Speech: Normal rate, volume and rythm Intellectual Functioning: Average Suicidal Ideation: Passive SI Homicidal Ideation: Denies HI Impulse Control: Impaired Insight and Judgment: Limited insight and judgment Memory: Normal Attention: Normal Orientation: Alert, oriented Assessment and Plan - Psychiatric problem (1) Schizoaffective disorder Current Visit: Yes Status: Acute Treatment Plan Our facility do not carry Latuda, pt would hv to wait for [facility] to be restarted on medications MEDICATIONS: Risks, benefits and alternatives of medications discussed with the patient, questions answered and consent obtained from patient. PSYCHOTHERAPY: Supportive psychotherapy provided MEDICAL: Per primary team DELIRIUM PRECAUTIONS: Please re-orient patient frequently, keep lights on during the day, and minimize benzodiazepines and opiates as these medications could worsen patient's confusion. 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 Case discussed with Dr. Mckeon who agrees with current disposition LEGAL STATUS: 1013 FOLLOW-UP: Will follow Thank you for the consult. Please contact with any questions and/or concerns. Mental Status Exam - Vital signs Last Vital Signs Temp 98.3 F 04/26/21 08:02 Pulse 75 04/26/21 07:10 Resp 24 04/26/21 07:10 BP 127/97 04/26/21 07:10 Pulse Ox 95 04/26/21 07:10 Assessment and Plan - Patient Problems (1) Schizoaffective disorder Current Visit: Yes Status: Acute
[2021-04-26] MEDS: FOLIC ACID 1 MG TAB PO SCH (10:05)
[2021-04-26] MEDS: FAMOTIDINE 20 MG TAB PO SCH (10:05)
[2021-04-26] MEDS: THIAMINE 100 MG TAB PO SCH (10:05)
[2021-04-26] MEDS: MULTIVITAMINS ,THERAPEUTIC TAB PO SCH (10:05)
[2021-04-26] MEDS: PYRIDOXINE 50 MG TAB PO SCH (10:08)
--- NOTE | 2021-04-26 13:00 | Progress Note ---
Assessment and Plan # Ethylene glycol poisoning with high osmolar gap - agree with current management - urinalysis bland, no evidence of crystal formation - BP stable - no emergent need for HD, monitor labs and urine output closely; would update poison control to ensure no other recommendations for acute ingestion - will follow peripherally as renal labs remain WNL # Lactic acidosis - recommend IVF # Suicide attempt - psychiatry input appreciated Subjective Date of service: 04/26/21 Principal diagnosis: Antifreeze ingestion Interval history: Transferred out of ICU, no acute changes Objective - Exam Narrative Exam: General appearance: well-developed, well-nourished EENT: ATNC Neck: Present: neck supple, trachea midline Respiratory: Clear to Ascultation Heart: regular, S1S2 Gastrointestinal: Present: normoactive bowel sounds Integumentary: no rash, warm and dry Neurologic: no focal deficit, no asterixis, alert and oriented x3 - Vital Signs Vital signs: Vital Signs - 12hr 04/26/21 04/26/21 04/26/21 01:00 01:10 01:20 Temperature Pulse Rate 97 H 79 88 Pulse Rate [ From Monitor] Pulse Rate [ Posterior Bilateral Throughout] Respiratory 19 17 18 Rate Respiratory Rate [Posterior Bilateral Throughout] Blood Pressure 119/83 119/83 119/83 Blood Pressure [Right] O2 Sat by Pulse 92 89 Oximetry 04/26/21 04/26/21 04/26/21 01:30 01:40 01:50 Temperature Pulse Rate 91 H 76 81 Pulse Rate [ From Monitor] Pulse Rate [ Posterior Bilateral Throughout] Respiratory 22 17 20 Rate Respiratory Rate [Posterior Bilateral Throughout] Blood Pressure 119/83 119/83 119/83 Blood Pressure [Right] O2 Sat by Pulse 91 93 92 Oximetry 04/26/21 04/26/21 04/26/21 02:00 02:10 02:20 Temperature Pulse Rate 92 H 89 85 Pulse Rate [ From Monitor] Pulse Rate [ Posterior Bilateral Throughout] Respiratory 22 21 18 Rate Respiratory Rate [Posterior Bilateral Throughout] Blood Pressure 120/78 120/78 120/78 Blood Pressure [Right] O2 Sat by Pulse 90 90 92 Oximetry 04/26/21 04/26/21 04/26/21 02:30 02:40 02:50 Temperature Pulse Rate 87 85 89 Pulse Rate [ From Monitor] Pulse Rate [ Posterior Bilateral Throughout] Respiratory 21 26 H 24 Rate Respiratory Rate [Posterior Bilateral Throughout] Blood Pressure 120/78 120/78 120/78 Blood Pressure [Right] O2 Sat by Pulse 91 90 90 Oximetry 04/26/21 04/26/21 04/26/21 03:00 03:10 03:20 Temperature Pulse Rate 89 81 80 Pulse Rate [ From Monitor] Pulse Rate [ Posterior Bilateral Throughout] Respiratory 21 18 18 Rate Respiratory Rate [Posterior Bilateral Throughout] Blood Pressure 104/68 104/68 104/68 Blood Pressure [Right] O2 Sat by Pulse 93 92 90 Oximetry 04/26/21 04/26/21 04/26/21 03:30 03:40 03:50 Temperature Pulse Rate 70 112 H 108 H Pulse Rate [ From Monitor] Pulse Rate [ Posterior Bilateral Throughout] Respiratory 17 15 18 Rate Respiratory Rate [Posterior Bilateral Throughout] Blood Pressure 104/68 104/68 104/68 Blood Pressure [Right] O2 Sat by Pulse 94 93 94 Oximetry 04/26/21 04/26/21 04/26/21 04:00 04:10 04:20 Temperature Pulse Rate 91 H 99 H 118 H Pulse Rate [ 94 H From Monitor] Pulse Rate [ Posterior Bilateral Throughout] Respiratory 16 11 L 13 Rate Respiratory Rate [Posterior Bilateral Throughout] Blood Pressure 123/77 123/77 123/77 Blood Pressure [Right] O2 Sat by Pulse 92 94 94 Oximetry 04/26/21 04/26/21 04/26/21 04:30 04:40 04:50 Temperature 97.9 F Pulse Rate 114 H 86 82 Pulse Rate [ From Monitor] Pulse Rate [ Posterior Bilateral Throughout] Respiratory 15 15 23 Rate Respiratory Rate [Posterior Bilateral Throughout] Blood Pressure 123/77 123/77 123/77 Blood Pressure [Right] O2 Sat by Pulse 94 93 93 Oximetry 04/26/21 04/26/21 04/26/21 05:00 05:10 05:14 Temperature Pulse Rate 74 97 H Pulse Rate [ From Monitor] Pulse Rate [ 107 H Posterior Bilateral Throughout] Respiratory 17 20 Rate Respiratory 17 Rate [Posterior Bilateral Throughout] Blood Pressure 132/81 132/81 Blood Pressure [Right] O2 Sat by Pulse 86 93 Oximetry 04/26/21 04/26/21 04/26/21 05:20 05:30 05:40 Temperature Pulse Rate 92 H 71 79 Pulse Rate [ From Monitor] Pulse Rate [ Posterior Bilateral Throughout] Respiratory 20 17 21 Rate Respiratory Rate [Posterior Bilateral Throughout] Blood Pressure 132/81 132/81 132/81 Blood Pressure [Right] O2 Sat by Pulse 92 93 92 Oximetry 04/26/21 04/26/21 04/26/21 05:50 06:00 06:10 Temperature Pulse Rate 78 67 98 H Pulse Rate [ From Monitor] Pulse Rate [ Posterior Bilateral Throughout] Respiratory 17 23 21 Rate Respiratory Rate [Posterior Bilateral Throughout] Blood Pressure 132/81 128/95 128/95 Blood Pressure [Right] O2 Sat by Pulse 93 85 92 Oximetry 04/26/21 04/26/21 04/26/21 06:20 06:30 06:40 Temperature Pulse Rate 97 H 92 H 83 Pulse Rate [ From Monitor] Pulse Rate [ Posterior Bilateral Throughout] Respiratory 26 H 17 27 H Rate Respiratory Rate [Posterior Bilateral Throughout] Blood Pressure 128/95 128/95 128/95 Blood Pressure [Right] O2 Sat by Pulse 94 94 94 Oximetry 04/26/21 04/26/21 04/26/21 06:50 07:00 07:10 Temperature Pulse Rate 87 87 75 Pulse Rate [ From Monitor] Pulse Rate [ Posterior Bilateral Throughout] Respiratory 21 25 H 24 Rate Respiratory Rate [Posterior Bilateral Throughout] Blood Pressure 128/95 127/97 127/97 Blood Pressure [Right] O2 Sat by Pulse 94 91 95 Oximetry 04/26/21 04/26/21 04/26/21 07:30 08:00 08:02 Temperature 98.3 F Pulse Rate 89 75 Pulse Rate [ From Monitor] Pulse Rate [ Posterior Bilateral Throughout] Respiratory 19 16 Rate Respiratory Rate [Posterior Bilateral Throughout] Blood Pressure 127/97 143/97 Blood Pressure [Right] O2 Sat by Pulse 95 Oximetry 04/26/21 04/26/21 04/26/21 08:30 09:00 09:30 Temperature Pulse Rate 116 H 59 L 70 Pulse Rate [ From Monitor] Pulse Rate [ Posterior Bilateral Throughout] Respiratory 25 H 15 17 Rate Respiratory Rate [Posterior Bilateral Throughout] Blood Pressure 143/97 147/92 147/92 Blood Pressure [Right] O2 Sat by Pulse 94 94 96 Oximetry 04/26/21 04/26/21 10:00 11:28 Temperature 97.6 F Pulse Rate 91 H 89 Pulse Rate [ From Monitor] Pulse Rate [ Posterior Bilateral Throughout] Respiratory 18 20 Rate Respiratory Rate [Posterior Bilateral Throughout] Blood Pressure 143/76 Blood Pressure 135/78 [Right] O2 Sat by Pulse 96 Oximetry - Lab 04/26/21 06:12 04/26/21 06:12 Most recent lab results ABG pH 7.421 pH Units (7.350-7.450) 04/24/21 16:37 ABG pCO2 28.3 mm Hg 04/24/21 16:37 ABG pO2 92.5 mm Hg (80.0-90.0) H 04/24/21 16:37 ABG HCO3 18.0 mmol/L (20.0-26.0) L 04/24/21 16:37 ABG O2 Saturation 97.3 % (95.0-99.0) 04/24/21 16:37 Calcium 9.5 mg/dL (8.4-10.2) 04/26/21 06:12 Magnesium 1.80 mg/dL (1.7-2.3) 04/24/21 13:53 Medications & Allergies - Medications Allergies/Adverse Reactions: Allergies benztropine [From Cogentin] Adverse Reaction (Severe, Verified 01/04/21 07:53) Unknown Per the patient's mother Ms Mere Rayo, she stated that cogentin causes the patient's TMJ to be more severe. aripiprazole [From Abilify] Adverse Reaction (Verified 01/04/21 07:53) Unknown citalopram [From Celexa] Adverse Reaction (Verified 01/04/21 07:53) Unknown divalproex sodium [From Depakote] Adverse Reaction (Verified 01/04/21 07:53) Unknown lurasidone [From Latuda] Adverse Reaction (Verified 01/04/21 07:53) Unknown olanzapine [From Zyprexa] Adverse Reaction (Verified 01/04/21 07:53) Unknown paroxetine [From Paxil] Adverse Reaction (Verified 01/04/21 07:53) Unknown risperidone [From Risperdal] Adverse Reaction (Verified 01/04/21 07:53) Unknown ziprasidone [From Geodon] Adverse Reaction (Verified 01/04/21 07:53) Unknown Home Medications: Home Medications Medication Instructions Recorded Confirmed Last Taken Type Basaglar Morganikpen U-100 20 units SQ DAILY 06/04/18 06/04/18 Unknown History Ventolin HFA 2 puff IH QID PRN 06/04/18 06/04/18 Unknown History metFORMIN 500 mg PO TID 06/04/18 06/04/18 Unknown History Cyclobenzaprine [Flexeril] 10 mg PO QHS PRN #20 tablet 10/03/18 Unknown Rx Ibuprofen [Motrin 800 MG tab] 800 mg PO Q8HR PRN #30 tablet 10/03/18 Unknown Rx Albuterol Mdi (or & Nicu Only) 2 puff IH Q4HR PRN #1 inhalation 03/02/19 Unknown Rx [ProAir HFA Inhaler] Cetirizine HCl/Pseudoephedrine 1 each PO DAILY #30 tab.er.12h 03/02/19 Unknown Rx [Zyrtec-D Tablet] Fluticasone [Flonase] 2 spray NS QDAY #1 bottle 03/02/19 Unknown Rx Prednisone [predniSONE 10 mg 10 mg PO .TAPER #1 tab.ds.pk 03/02/19 Unknown Rx (6-Day Pack, 21 Tabs)] HYDROcodone/APAP 5-325 [Cutler 1 - 2 each PO Q6HR PRN #14 tablet 04/08/19 Unknown Rx 5/325] Ibuprofen [Motrin 800 MG tab] 800 mg PO Q8HR PRN #20 tablet 04/08/19 Unknown Rx Cyclobenzaprine HCl [Flexeril 5 MG 5 mg PO TID PRN #10 tab 10/28/19 Unknown Rx TAB] Active Medications: Generic Name Dose Route Start Last Admin Trade Name Freq PRN Reason Stop Dose Admin Albuterol 2.5 mg 04/24/21 21:28 04/26/21 05:14 Albuterol 2.5 Mg/3 Ml Nebu IH 2.5 mg Q4HRT PRN Administration Shortness Of Breath Enoxaparin Sodium 40 mg 04/25/21 22:00 04/25/21 22:26 Enoxaparin 40 Mg/0.4 Ml Inj SUB-Q 40 mg QDAY@2200 LUIS FELIPE Administration Protocol Famotidine 20 mg 04/26/21 10:00 04/26/21 10:05 Famotidine 20 Mg Tab PO 20 mg QDAY LUIS FELIPE Administration Folic Acid 1 mg 04/25/21 10:00 04/26/21 10:05 Folic Acid 1 Mg Tab PO 1 mg QDAY LUIS FELIPE Administration Haloperidol Lactate 5 mg 04/24/21 13:22 Haloperidol Lactate 5 Mg/1 Ml Inj IM Q6HR PRN Agitation Fomepizole 790 mg/ Sodium 100.79 mls @ 201.58 mls/hr 04/25/21 04:00 04/26/21 03:34 Chloride IV 04/26/21 16:29 201.58 mls/hr Q12H LUIS FELIPE Administration Fomepizole 1,190 mg/ Sodium 101.19 mls @ 202.38 mls/hr 04/27/21 04:00 Chloride IV Q12H LUIS FELIPE Insulin Human Lispro 0 unit 04/26/21 11:30 04/26/21 11:30 Insulin Lispro 100 Unit/Ml SUB-Q Not Given ACHS [facility] Protocol Lorazepam 2 mg 04/24/21 13:22 Lorazepam 2 Mg/Ml Vial IM Q4HR PRN Agitation Multivitamins 1 each 04/25/21 10:00 04/26/21 10:05 Multivitamins ,Therapeutic Tab PO 1 each QDAY LUIS FELIPE Administration Pyridoxine HCl 100 mg 04/24/21 18:00 04/26/21 10:08 Pyridoxine 50 Mg Tab PO Not Given QDAY LUIS FELIPE Sodium Chloride 10 ml 04/24/21 22:00 04/26/21 10:06 Sodium Chloride 0.9% 10 Ml Flush Syringe IV 10 ml BID LUIS FELPIE Administration Sodium Chloride 10 ml 04/24/21 17:30 Sodium Chloride 0.9% 10 Ml Flush Syringe IV PRN PRN LINE FLUSH Thiamine HCl 100 mg 04/24/21 17:13 04/26/21 10:05 Thiamine 100 Mg Tab PO 100 mg QDAY LUIS FELIPE Administration
--- NOTE | 2021-04-26 15:04 | Progress Note ---
Assessment and Plan Suicide attempt with antifreeze ingestion Antifreeze ingestion History of depression Posttraumatic stress disorder Obesity Diabetes Prior suicide attempt - 1013 status per psych / attending - prn supplemental oxygen to keep O2 sats > 90% - prn Bronchodilators (RONALD) with pulm hygiene per RT - avoid nephrotoxins, renally dose all medications - mobility protocols to prevent pressure ulcers - PT/OT as tolerated - Wound care per RN/WCT - accuchecks with glycemic control per SSI for target blood glucose < 180 mg/dL - tobacco and drug abstinence strongly counseled at the bedside - home oxygen evaluation at discharge - GI & VTE prophylaxis - Flu & pneumovax per protocol - prn analgesia per pain score - continue other care per attending / other consultants ... re-evaluate in am & prn Subjective Date of service: 04/26/21 Principal diagnosis: Suicide attempt; Antifreeze ingestion; Depression; PTSD; Obesity; DM II Interval history: Patient is seen today for: Suicide attempt with antifreeze; Antifreeze ingestion; Depression; PTSD; Obesity; DM II Seen and examined at bedside; 24hour events reviewed; nursing and respiratory care staff consulted; no adverse overnight events reported to me; resting in bed; Objective Vital Signs - 12hr 04/26/21 04/26/21 04/26/21 03:10 03:20 03:30 Temperature Pulse Rate 81 80 70 Pulse Rate [ From Monitor] Pulse Rate [ Posterior Bilateral Throughout] Respiratory 18 18 17 Rate Respiratory Rate [Posterior Bilateral Throughout] Blood Pressure 104/68 104/68 104/68 Blood Pressure [Right] O2 Sat by Pulse 92 90 94 Oximetry 04/26/21 04/26/21 04/26/21 03:40 03:50 04:00 Temperature Pulse Rate 112 H 108 H 91 H Pulse Rate [ 94 H From Monitor] Pulse Rate [ Posterior Bilateral Throughout] Respiratory 15 18 16 Rate Respiratory Rate [Posterior Bilateral Throughout] Blood Pressure 104/68 104/68 123/77 Blood Pressure [Right] O2 Sat by Pulse 93 94 92 Oximetry 04/26/21 04/26/21 04/26/21 04:10 04:20 04:30 Temperature 97.9 F Pulse Rate 99 H 118 H 114 H Pulse Rate [ From Monitor] Pulse Rate [ Posterior Bilateral Throughout] Respiratory 11 L 13 15 Rate Respiratory Rate [Posterior Bilateral Throughout] Blood Pressure 123/77 123/77 123/77 Blood Pressure [Right] O2 Sat by Pulse 94 94 94 Oximetry 04/26/21 04/26/21 04/26/21 04:40 04:50 05:00 Temperature Pulse Rate 86 82 74 Pulse Rate [ From Monitor] Pulse Rate [ Posterior Bilateral Throughout] Respiratory 15 23 17 Rate Respiratory Rate [Posterior Bilateral Throughout] Blood Pressure 123/77 123/77 132/81 Blood Pressure [Right] O2 Sat by Pulse 93 93 86 Oximetry 04/26/21 04/26/21 04/26/21 05:10 05:14 05:20 Temperature Pulse Rate 97 H 92 H Pulse Rate [ From Monitor] Pulse Rate [ 107 H Posterior Bilateral Throughout] Respiratory 20 20 Rate Respiratory 17 Rate [Posterior Bilateral Throughout] Blood Pressure 132/81 132/81 Blood Pressure [Right] O2 Sat by Pulse 93 92 Oximetry 04/26/21 04/26/21 04/26/21 05:30 05:40 05:50 Temperature Pulse Rate 71 79 78 Pulse Rate [ From Monitor] Pulse Rate [ Posterior Bilateral Throughout] Respiratory 17 21 17 Rate Respiratory Rate [Posterior Bilateral Throughout] Blood Pressure 132/81 132/81 132/81 Blood Pressure [Right] O2 Sat by Pulse 93 92 93 Oximetry 04/26/21 04/26/21 04/26/21 06:00 06:10 06:20 Temperature Pulse Rate 67 98 H 97 H Pulse Rate [ From Monitor] Pulse Rate [ Posterior Bilateral Throughout] Respiratory 23 21 26 H Rate Respiratory Rate [Posterior Bilateral Throughout] Blood Pressure 128/95 128/95 128/95 Blood Pressure [Right] O2 Sat by Pulse 85 92 94 Oximetry 04/26/21 04/26/21 04/26/21 06:30 06:40 06:50 Temperature Pulse Rate 92 H 83 87 Pulse Rate [ From Monitor] Pulse Rate [ Posterior Bilateral Throughout] Respiratory 17 27 H 21 Rate Respiratory Rate [Posterior Bilateral Throughout] Blood Pressure 128/95 128/95 128/95 Blood Pressure [Right] O2 Sat by Pulse 94 94 94 Oximetry 04/26/21 04/26/21 04/26/21 07:00 07:10 07:30 Temperature Pulse Rate 87 75 89 Pulse Rate [ From Monitor] Pulse Rate [ Posterior Bilateral Throughout] Respiratory 25 H 24 19 Rate Respiratory Rate [Posterior Bilateral Throughout] Blood Pressure 127/97 127/97 127/97 Blood Pressure [Right] O2 Sat by Pulse 91 95 95 Oximetry 04/26/21 04/26/21 04/26/21 08:00 08:02 08:30 Temperature 98.3 F Pulse Rate 75 116 H Pulse Rate [ From Monitor] Pulse Rate [ Posterior Bilateral Throughout] Respiratory 16 25 H Rate Respiratory Rate [Posterior Bilateral Throughout] Blood Pressure 143/97 143/97 Blood Pressure [Right] O2 Sat by Pulse 94 Oximetry 04/26/21 04/26/21 04/26/21 09:00 09:30 10:00 Temperature Pulse Rate 59 L 70 91 H Pulse Rate [ From Monitor] Pulse Rate [ Posterior Bilateral Throughout] Respiratory 15 17 18 Rate Respiratory Rate [Posterior Bilateral Throughout] Blood Pressure 147/92 147/92 143/76 Blood Pressure [Right] O2 Sat by Pulse 94 96 Oximetry 04/26/21 11:28 Temperature 97.6 F Pulse Rate 89 Pulse Rate [ From Monitor] Pulse Rate [ Posterior Bilateral Throughout] Respiratory 20 Rate Respiratory Rate [Posterior Bilateral Throughout] Blood Pressure Blood Pressure 135/78 [Right] O2 Sat by Pulse 96 Oximetry Constitutional: no acute distress Eyes: non-icteric ENT: oropharynx moist Neck: supple, no lymphadenopathy, no JVD Effort: normal Ascultation: Bilateral: clear Percussion: Bilateral: not dull Cardiovascular: regular rate and rhythm Gastrointestinal: normoactive bowel sounds, soft, non-tender, non-distended Integumentary: normal Extremities: no cyanosis, no edema, pulses normal, no ischemia or petechiae Neurologic: non-focal exam, pupils equal and round, CN II-XII normal, motor strength normal and Psychiatric: mood appropriate, affect normal CBC and BMP: 04/26/21 06:12 04/26/21 06:12 ABG, PT/INR, D-dimer: ABG ABG pH 7.421 pH Units (7.350-7.450) 04/24/21 16:37 ABG pCO2 28.3 mm Hg 04/24/21 16:37 ABG pO2 92.5 mm Hg (80.0-90.0) H 04/24/21 16:37 ABG O2 Saturation 97.3 % (95.0-99.0) 04/24/21 16:37 Abnormal lab findings: Abnormal Labs 04/24/21 04/24/21 04/24/21 13:53 13:53 13:53 WBC RBC 5.29 H Hgb 15.9 H Hct MCV 83 L MCHC 36 H Morgan % (Auto) 12.7 H Eos % (Auto) Morgan # (Auto) 1.3 H Eos # (Auto) Monocytes % (Manual) Monocytes # (Manual) ABG pO2 ABG HCO3 ABG Base Excess Carbon Dioxide 21 L BUN 7 L Creatinine Glucose POC Glucose Lactic Acid 5.30 H* Alkaline Phosphatase 154 H Salicylates Acetaminophen Valproic Acid 04/24/21 04/24/21 04/24/21 13:53 13:53 16:37 WBC RBC Hgb Hct MCV MCHC Morgan % (Auto) Eos % (Auto) Morgan # (Auto) Eos # (Auto) Monocytes % (Manual) Monocytes # (Manual) ABG pO2 92.5 H ABG HCO3 18.0 L ABG Base Excess -4.7 L Carbon Dioxide BUN Creatinine Glucose POC Glucose Lactic Acid Alkaline Phosphatase Salicylates < 2.0 L Acetaminophen 5.0 L Valproic Acid 2.8 L 04/24/21 04/24/21 04/25/21 17:24 20:18 00:16 WBC RBC Hgb Hct MCV MCHC Morgan % (Auto) Eos % (Auto) Morgan # (Auto) Eos # (Auto) Monocytes % (Manual) Monocytes # (Manual) ABG pO2 ABG HCO3 ABG Base Excess Carbon Dioxide BUN Creatinine Glucose POC Glucose 144 H 123 H Lactic Acid 6.30 H* Alkaline Phosphatase Salicylates Acetaminophen Valproic Acid 04/25/21 04/25/21 04/25/21 04:56 04:56 11:52 WBC RBC 5.33 H Hgb 16.1 H Hct MCV 83 L MCHC 37 H Morgan % (Auto) Eos % (Auto) Morgan # (Auto) Eos # (Auto) Monocytes % (Manual) 11.0 H Monocytes # (Manual) 1.1 H ABG pO2 ABG HCO3 ABG Base Excess Carbon Dioxide BUN 6 L Creatinine 0.7 L Glucose 129 H POC Glucose 119 H Lactic Acid Alkaline Phosphatase Salicylates Acetaminophen Valproic Acid 04/26/21 04/26/21 04/26/21 00:01 05:09 06:12 WBC 12.2 H RBC 5.78 H Hgb 17.3 H Hct 47.5 H MCV 82 L MCHC 36 H Morgan % (Auto) 14.0 H Eos % (Auto) 4.8 H Morgan # (Auto) 1.7 H Eos # (Auto) 0.6 H Monocytes % (Manual) Monocytes # (Manual) ABG pO2 ABG HCO3 ABG Base Excess Carbon Dioxide BUN Creatinine Glucose POC Glucose 130 H 115 H Lactic Acid Alkaline Phosphatase Salicylates Acetaminophen Valproic Acid 04/26/21 04/26/21 06:12 11:32 WBC RBC Hgb Hct MCV MCHC Morgan % (Auto) Eos % (Auto) Morgan # (Auto) Eos # (Auto) Monocytes % (Manual) Monocytes # (Manual) ABG pO2 ABG HCO3 ABG Base Excess Carbon Dioxide BUN Creatinine Glucose 126 H POC Glucose 115 H Lactic Acid Alkaline Phosphatase 149 H Salicylates Acetaminophen Valproic Acid Allied health notes reviewed: nursing
[2021-04-26] MEDS: FLUTICASONE PROPIONATE NASAL SPRAY 16 GM NS PRN (17:05)
[2021-04-26] MEDS: ENOXAPARIN 40 MG/0.4 ML INJ SUB-Q SCH (22:27)
[2021-04-27] MEDS: SODIUM CHLORIDE 0.9% IV SCH ×2 (06:06→16:03)
[2021-04-27] MEDS: FOMEPIZOLEV IV SCH ×2 (06:06→16:03)
--- NOTE | 2021-04-27 08:46 | Progress Note ---
Subjective - Reason for Consult Consult date: 04/27/21 Reason for consult: MHE Requesting physician: KOJO DELEON - Chief Complaint Chief complaint: Psych Progress Patient seen this AM, patient presents as angry, stating he wants to go home, says his mother says medication has been approved and ready for tile picker at pharmacy. REVIEW OF SYSTEMS Constitutional: Negative for weight loss ENT: Negative for stridor Respiratory: Negative for cough or hemoptysis All other systems reviewed and are negative MENTAL STATUS EXAMINATION General Appearance and Behavior: Age appropriate, good hygiene, wearing appropriate clothes,, good eye contact Cooperation: Participating/engaged Psychomotor Behavior: Psychomotor normal Mood: angry Affect and affective range: congruent with mood Thought Process: illogical Thought Content: illogical Speech: Normal rate, volume and rythm Intellectual Functioning: Average Suicidal Ideation: denies Homicidal Ideation: Denies HI Impulse Control: Impaired Insight and Judgment: Limited insight and judgment Memory: Normal Attention: Normal Orientation: Alert, oriented Assessment and Plan - Psychiatric problem (1) Schizoaffective disorder Current Visit: Yes Status: Acute Treatment Plan I spoke with momvicente she will be picking up medications and bring to hospital, pt can be started on the med and discharged home after 24 hours on medication start. Patient Our facility do not carry Latuda, [facility] be restarted on medications MEDICATIONS: Risks, benefits and alternatives of medications discussed with the patient, questions answered and consent obtained from patient. PSYCHOTHERAPY: Supportive psychotherapy provided MEDICAL: Per primary team DELIRIUM PRECAUTIONS: Please re-orient patient frequently, keep lights on during the day, and minimize benzodiazepines and opiates as these medications could worsen patient's confusion. MANAGER GLOBAL: DISPOSITION: Do not Recommend acute inpatient psychiatric hospitalization at this time after medical care. Case discussed with Dr. Mckeon who agrees with current disposition LEGAL STATUS: 1013 rescinded FOLLOW-UP: Will sign off Thank you for the consult. Please contact with any questions and/or concerns. Mental Status Exam - Vital signs Last Vital Signs Temp 99.2 F 04/27/21 03:46 Pulse 106 H 04/27/21 03:46 Resp 18 04/27/21 03:46 BP 129/71 04/27/21 03:46 Pulse Ox 92 04/27/21 03:46 Assessment and Plan - Patient Problems (1) Schizoaffective disorder Current Visit: Yes Status: Acute
[2021-04-27] MEDS: PYRIDOXINE 50 MG TAB PO SCH (09:47)
[2021-04-27] MEDS: MULTIVITAMINS ,THERAPEUTIC TAB PO SCH (09:48)
[2021-04-27] MEDS: THIAMINE 100 MG TAB PO SCH (09:48)
[2021-04-27] MEDS: FAMOTIDINE 20 MG TAB PO SCH (09:48)
[2021-04-27] MEDS: FOLIC ACID 1 MG TAB PO SCH (09:48)
[2021-04-27] MEDS: FLUTICASONE PROPIONATE NASAL SPRAY 16 GM NS PRN (09:54)
[2021-04-27] MEDS ORDERED: ALBUTEROL 8.5 GM MDI INHALATION IH PRN (10:31)
[2021-04-27] MEDS: INSULIN LISPRO 100 UNIT/ML SUB-Q SCH ×4 (10:31→21:13)
[2021-04-27] MEDS ORDERED: CYCLOBENZAPRINE 10 MG TAB PO PRN (10:31)
--- NOTE | 2021-04-27 10:39 | Progress Note ---
Assessment and Plan The high probability OF a clinically significant sudden or life-threatening deterioration of the cardiorespiratory system and endocrine system required my full and direct attention, intervention and postoperative management. The aggregate critical care time was 35 minutes. The time is in addition to time spent performing reported procedures but includes the followin: Data review and interpretation 2: Patient assessment and monitoring of vital signs 3: Documentation 4:: Medication orders and management Assessment and Plan - Patient Problems (1) Ethylene glycol poisoning Current Visit: Yes Status: Acute Qualifiers: Encounter type: initial encounter Plan to address problem: Poison control notified. Patient admitted to ICU and initiated on Fomepizone therapy, vitamin B6 therapy, as well as thiamine. CMP, repeat CMP in a.m., neuro check, seizure precautions. Patient stable Patient on fomepizole at a lower dose (2) Suicide attempt Current Visit: Yes Status: Acute Plan to address problem: Patient placed on 1013, mental health team consulted in ED. Psych consult appreciated (3) High serum osmolar gap Current Visit: Yes Status: Acute Plan to address problem: Improved (4) Lactic acidosis Current Visit: Yes Status: Acute Improved (5) Nicotine dependence Current Visit: Yes Status: Acute Qualifiers: Nicotine product type: cigarettes Substance use status: in withdrawal Qualified Code(s): F17.213 - Nicotine dependence, cigarettes, with withdrawal Plan to address problem: Smoking cessation counseling, supportive care, behavior change counseling, +15 minutes. (6) Polysubstance abuse Current Visit: Yes Status: Acute Plan to address problem: Supportive care, neuro check, seizure precautions, IV fluid resuscitation therap y as clinically indicated. Urine drug screen (7) DVT prophylaxis Current Visit: Yes Status: Acute Plan to address problem: SCD to bilateral lower extremities while in bed, patient is ambulatory Subjective Date of service: 04/26/21 Principal diagnosis: Antifreeze ingestion Interval history: 26 YO Male with Depression, Suicidal Ideation, Asthma, PTSD, PSA, Nicotine Dependence, DM, Asthma presents to ED for evaluation. Pt reports " I hate everything, I want to , I want to kill people". Patient reports consuming 1 cup of antifreeze 15 minutes prior to presentation to ER in an attempt to take his own life. Patient transported to [facility] via private vehicle for further care and evaluation of the aforementioned symptoms. The patient is seen and evaluated in the emergency department. All lab and imaging studies reviewed. Patient found to have suicidal Frederic ideation complicated by suicide attempt with antifreeze ingestion, metabolic acidosis, psychosis. Patient admitted to ICU. Poison control notified, and the patient was initiated on Fomepizone therapy as an antidote specific for ethylene glycol ingestion due to concern regarding ensuing end organ damage as per poison control recommendations. The patient was also initiated on thiamine, and vitamin B6 therapy. The patient was placed on 1013 and mental health consult placed in ED. critical care team consulted in ED. Nephrology team consulted in ED. No further history is obtainable. Patient minimally cooperative with exam and interview. No prior admission for review. All medication listed at time of admission has been reconciled. 04/25/2021 Patient stable Patient on 1013 04/26/2021 Patient stable Patient on fomepizole Discussed with poison control Patient will be continued on fomepizole at a lower dose Objective - Constitutional Vitals: Vital Signs - 12hr 04/26/21 04/27/21 23:44 03:46 Temperature 98.6 F 99.2 F Pulse Rate 87 106 H Respiratory 20 18 Rate Blood Pressure 115/64 129/71 O2 Sat by Pulse 96 92 Oximetry General appearance: Present: no acute distress, well-nourished - EENT Eyes: PERRL, EOM intact ENT: hearing intact, clear oral mucosa Ears: bilateral: normal - Neck Neck: supple, normal ROM - Respiratory Respiratory effort: normal Respiratory: bilateral: CTA - Breasts Breasts: normal - Cardiovascular Heart rate: 78 Rhythm: regular Heart Sounds: Present: S1 & S2. Absent: gallop, rub Extremities: pulses intact, No edema, normal color, Full ROM - Gastrointestinal General gastrointestinal: Present: soft, non-tender, non-distended, normal bowel sounds - Genitourinary Male genitourinary: normal - Integumentary Integumentary: clear, warm, dry - Musculoskeletal Musculoskeletal: 1, strength equal bilaterally - Neurologic Neurologic: moves all extremities - Psychiatric Psychiatric: memory intact, appropriate mood/affect, intact judgment & insight - Labs CBC & Chem 7: 04/26/21 06:12 04/26/21 06:12 Labs: Abnormal lab results 04/26/21 04/26/21 04/26/21 Range/Units 11:32 16:33 21:25 POC Glucose 115 H 110 H 122 H (70-105) mg/dL 04/27/21 Range/Units 10:00 POC Glucose 161 H (70-105) mg/dL
[2021-04-27] MEDS ORDERED: CETIRIZINE HCL PO SCH (10:45)
[2021-04-27] MEDS ORDERED: PSEUDOEPHEDRINE PO SCH (10:45)
[2021-04-27] MEDS ORDERED: LATUDA 40 MG PO SCH (10:45)
[2021-04-27] MEDS ORDERED: NON-FORMULARY EACH (Basaglar Kwikpen U-100 20 UNITS) SQ SCH (10:45)
[2021-04-27] MEDS ORDERED: FLUTICASONE PROPIONATE NASAL SPRAY 16 GM NS SCH (11:00)
--- NOTE | 2021-04-27 14:37 | Progress Note ---
Assessment and Plan 26 YO Male with Depression, Suicidal Ideation, Asthma, PTSD, PSA, Nicotine Dependence, DM, Asthma presents to ED for evaluation. Pt reports " I hate everything, I want to , I want to kill people". Patient reports consuming 1 cup of antifreeze 15 minutes prior to presentation to ER in an attempt to take his own life. Patient transported to [facility] via private vehicle for further care and evaluation of the aforementioned symptoms. Patient found to have suicidal Frederic ideation complicated by suicide attempt with antifreeze ingestion, metabolic acidosis, psychosis. Patient admitted to ICU. Poison control notified, and the patient was initiated on Fomepizone therapy as an antidote specific for ethylene glycol ingestion due to concern regarding ensuing end organ damage as per poison control recommendations. The patient was also initiated on thiamine, and vitamin B6 therapy. The patient was placed on 1013 and mental health consult placed in ED. Patient sleeping at this time. No respiratory distress. Patient afebrile. Blood pressure 130/80. Patient is on room air. o2 saturation 96%. - Patient Problems (1) Ethylene glycol poisoning Current Visit: Yes Status: Acute Qualifiers: Encounter type: initial encounter Plan to address problem: Patient given Fomerezone Management as per primary care. (2) High serum osmolar gap Current Visit: Yes Status: Acute Plan to address problem: Treating for Ethylene Glycol ingestion. (3) Nicotine dependence Current Visit: Yes Status: Acute Qualifiers: Nicotine product type: cigarettes Substance use status: in withdrawal Qualified Code(s): F17.213 - Nicotine dependence, cigarettes, with withdrawal Plan to address problem: Will international student counselor to stop smoking. (4) Polysubstance abuse Current Visit: Yes Status: Acute Plan to address problem: Recommend psychiatry consultation. (5) Suicide attempt Current Visit: Yes Status: Acute Plan to address problem: Psychiatry consultation. Subjective Date of service: 04/27/21 Principal diagnosis: Antifreeze ingestion Interval history: 26 YO Male with Depression, Suicidal Ideation, Asthma, PTSD, PSA, Nicotine Dependence, DM, Asthma presents to ED for evaluation. Pt reports " I hate everything, I want to , I want to kill people". Patient reports consuming 1 cup of antifreeze 15 minutes prior to presentation to ER in an attempt to take his own life. Patient transported to [facility] via private vehicle for further care and evaluation of the aforementioned symptoms. Patient found to have suicidal Frederic ideation complicated by suicide attempt with antifreeze ingestion, metabolic acidosis, psychosis. Patient admitted to ICU. Poison control notified, and the patient was initiated on Fomepizone therapy as an antidote specific for ethylene glycol ingestion due to concern regarding ensuing end organ damage as per poison control recommendations. The patient was also initiated on thiamine, and vitamin B6 therapy. The patient was placed on 1013 and mental health consult placed in ED. Patient sleeping at this time. No respiratory distress. Patient afebrile. Blood pressure 130/80. Patient is on room air. o2 saturation 96%. Objective Vital Signs - 12hr 04/27/21 04/27/21 03:46 11:00 Temperature 99.2 F 98.0 F Pulse Rate 106 H 74 Respiratory 18 20 Rate Blood Pressure 129/71 117/76 O2 Sat by Pulse 92 96 Oximetry Constitutional: no acute distress, asleep Eyes: non-icteric ENT: oropharynx moist Neck: supple, no lymphadenopathy, no JVD Effort: normal Ascultation: Bilateral: clear Percussion: Bilateral: not dull Cardiovascular: regular rate and rhythm Gastrointestinal: normoactive bowel sounds, soft, non-tender, non-distended Integumentary: normal Extremities: no cyanosis, no edema, pulses normal, no ischemia or petechiae Neurologic: non-focal exam, pupils equal and round, CN II-XII normal, motor strength normal and Psychiatric: mood appropriate, affect normal CBC and BMP: 04/26/21 06:12 04/26/21 06:12 ABG, PT/INR, D-dimer: ABG ABG pH 7.421 pH Units (7.350-7.450) 04/24/21 16:37 ABG pCO2 28.3 mm Hg 04/24/21 16:37 ABG pO2 92.5 mm Hg (80.0-90.0) H 04/24/21 16:37 ABG O2 Saturation 97.3 % (95.0-99.0) 04/24/21 16:37 Abnormal lab findings: Abnormal Labs 04/24/21 04/24/21 04/24/21 13:53 13:53 13:53 WBC RBC 5.29 H Hgb 15.9 H Hct MCV 83 L MCHC 36 H [place] % (Auto) 12.7 H Eos % (Auto) [place] # (Auto) 1.3 H Eos # (Auto) Monocytes % (Manual) Monocytes # (Manual) ABG pO2 ABG HCO3 ABG Base Excess Carbon Dioxide 21 L BUN 7 L Creatinine Glucose POC Glucose Lactic Acid 5.30 H* Alkaline Phosphatase 154 H Salicylates Acetaminophen Valproic Acid 04/24/21 04/24/21 04/24/21 13:53 13:53 16:37 WBC RBC Hgb Hct MCV MCHC [place] % (Auto) Eos % (Auto) [place] # (Auto) Eos # (Auto) Monocytes % (Manual) Monocytes # (Manual) ABG pO2 92.5 H ABG HCO3 18.0 L ABG Base Excess -4.7 L Carbon Dioxide BUN Creatinine Glucose POC Glucose Lactic Acid Alkaline Phosphatase Salicylates < 2.0 L Acetaminophen 5.0 L Valproic Acid 2.8 L 04/24/21 04/24/21 04/25/21 17:24 20:18 00:16 WBC RBC Hgb Hct MCV MCHC [place] % (Auto) Eos % (Auto) [place] # (Auto) Eos # (Auto) Monocytes % (Manual) Monocytes # (Manual) ABG pO2 ABG HCO3 ABG Base Excess Carbon Dioxide BUN Creatinine Glucose POC Glucose 144 H 123 H Lactic Acid 6.30 H* Alkaline Phosphatase Salicylates Acetaminophen Valproic Acid 04/25/21 04/25/21 04/25/21 04:56 04:56 11:52 WBC RBC 5.33 H Hgb 16.1 H Hct MCV 83 L MCHC 37 H [place] % (Auto) Eos % (Auto) [place] # (Auto) Eos # (Auto) Monocytes % (Manual) 11.0 H Monocytes # (Manual) 1.1 H ABG pO2 ABG HCO3 ABG Base Excess Carbon Dioxide BUN 6 L Creatinine 0.7 L Glucose 129 H POC Glucose 119 H Lactic Acid Alkaline Phosphatase Salicylates Acetaminophen Valproic Acid 04/26/21 04/26/21 04/26/21 00:01 05:09 06:12 WBC 12.2 H RBC 5.78 H Hgb 17.3 H Hct 47.5 H MCV 82 L MCHC 36 H [place] % (Auto) 14.0 H Eos % (Auto) 4.8 H [place] # (Auto) 1.7 H Eos # (Auto) 0.6 H Monocytes % (Manual) Monocytes # (Manual) ABG pO2 ABG HCO3 ABG Base Excess Carbon Dioxide BUN Creatinine Glucose POC Glucose 130 H 115 H Lactic Acid Alkaline Phosphatase Salicylates Acetaminophen Valproic Acid 04/26/21 04/26/21 04/26/21 06:12 11:32 16:33 WBC RBC Hgb Hct MCV MCHC [place] % (Auto) Eos % (Auto) [place] # (Auto) Eos # (Auto) Monocytes % (Manual) Monocytes # (Manual) ABG pO2 ABG HCO3 ABG Base Excess Carbon Dioxide BUN Creatinine Glucose 126 H POC Glucose 115 H 110 H Lactic Acid Alkaline Phosphatase 149 H Salicylates Acetaminophen Valproic Acid 04/26/21 04/27/21 21:25 10:00 WBC RBC Hgb Hct MCV MCHC [place] % (Auto) Eos % (Auto) [place] # (Auto) Eos # (Auto) Monocytes % (Manual) Monocytes # (Manual) ABG pO2 ABG HCO3 ABG Base Excess Carbon Dioxide BUN Creatinine Glucose POC Glucose 122 H 161 H Lactic Acid Alkaline Phosphatase Salicylates Acetaminophen Valproic Acid Allied health notes reviewed: nursing
[2021-04-27] MEDS: ENOXAPARIN 40 MG/0.4 ML INJ SUB-Q SCH (21:12)
[2021-04-28] MEDS: SODIUM CHLORIDE 0.9% IV SCH (05:12)
[2021-04-28] MEDS: FOMEPIZOLEV IV SCH (05:12)
[2021-04-28] MEDS: INSULIN LISPRO 100 UNIT/ML SUB-Q SCH ×3 (07:11→22:19)
--- NOTE | 2021-04-28 08:42 | Progress Note ---
Assessment and Plan Assessment and plan: -- Ethylene glycol poisoning Current Visit: Yes Status: Acute Poison control notified. Patient admitted to ICU and initiated on Fomepizone therapy, vitamin B6 therapy, as well as thiamine. CMP, repeat CMP in a.m., neuro check, seizure precautions. Patient stable Patient on fomepizole at a lower dose -- Suicide attempt Current Visit: Yes Status: Acute : Patient was placed on 1013, psych team has rescinded 1013 Continue supportive care. Patient denies any depression suicidal thoughts or ideation Psych cleared for discharge --High serum osmolar gap Current Visit: Yes Status: Acute Improved with IV fluids plenty oral liquids, advised -- Lactic acidosis; POA Current Visit: Yes Status: Acute Resolved --Ongoing tobacco use / Current Visit: Yes Status: Acute Smoking cessation counseling done advised to quit tobacco use, supportive care, behavior change counseling, +15 minutes. -- Polysubstance abuse Current Visit: Yes Status: Acute Supportive care, neuro check, seizure precautions, IV fluid resuscitation therapy as clinically indicated. Urine drug screen --DVT prophylaxis Current Visit: Yes Status: Acute SCD to bilateral lower extremities while in bed, patient is ambulatory. We will closely monitor patient and adjust the management as needed Plan of care reviewed with the patient and his nurse Closely monitor clinically, check with poison control Possible discharge in 1 to 2 days if stable History Interval history: I have seen and examined the patient at the bedside Patient's chart and medications reviewed Patient feels slightly better alert awake oriented Psych evaluated the patient and rescinded 1013 Cleared for discharge Vital signs noted Patient has no new complaints Hospitalist Physical - Constitutional Vitals: Temp Pulse Resp BP Pulse Ox 97.7 F 84 18 126/94 97 04/28/21 04:47 04/28/21 04:47 04/28/21 04:47 04/28/21 04:47 04/28/21 04:47 General appearance: Present: no acute distress, well-nourished - EENT Eyes: Present: PERRL, scleral icterus, miosis - Neck Neck: Present: supple, normal ROM - Respiratory Respiratory effort: normal Respiratory: bilateral: diminished, negative: rales, rhonchi, wheezing - Cardiovascular Rhythm: regular Heart Sounds: Present: S1 & S2 - Extremities Extremities: no ischemia, No edema - Abdominal General gastrointestinal: soft, non-tender, non-distended, normal bowel sounds - Integumentary Integumentary: Present: clear, warm - Psychiatric Psychiatric: appropriate mood/affect, cooperative - Neurologic Neurologic: moves all extremities Results - Labs CBC & Chem 7: 04/26/21 06:12 04/26/21 06:12 Labs: Laboratory Last Values WBC 12.2 K/mm3 (4.5-11.0) H 04/26/21 06:12 RBC 5.78 M/mm3 (3.65-5.03) H 04/26/21 06:12 Hgb 17.3 gm/dl (11.8-15.2) H 04/26/21 06:12 Hct 47.5 % (35.5-45.6) H 04/26/21 06:12 MCV 82 fl (84-94) L 04/26/21 06:12 MCH 30 pg (28-32) 04/26/21 06:12 MCHC 36 % (32-34) H 04/26/21 06:12 RDW 13.6 % (13.2-15.2) 04/26/21 06:12 Plt Count 258 K/mm3 (140-440) 04/26/21 06:12 Lymph % (Auto) 32.9 % (13.4-35.0) 04/26/21 06:12 [place] % (Auto) 14.0 % (0.0-7.3) H 04/26/21 06:12 Eos % (Auto) 4.8 % (0.0-4.3) H 04/26/21 06:12 Baso % (Auto) 0.9 % (0.0-1.8) 04/26/21 06:12 Lymph # (Auto) 4.0 K/mm3 (1.2-5.4) 04/26/21 06:12 [place] # (Auto) 1.7 K/mm3 (0.0-0.8) H 04/26/21 06:12 Eos # (Auto) 0.6 K/mm3 (0.0-0.4) H 04/26/21 06:12 Baso # (Auto) 0.1 K/mm3 (0.0-0.1) 04/26/21 06:12 Add Manual Diff Complete 04/25/21 04:56 Total Counted 100 04/25/21 04:56 Seg Neutrophils % 47.4 % (40.0-70.0) 04/26/21 06:12 Seg Neuts % (Manual) 66.0 % (40.0-70.0) 04/25/21 04:56 Lymphocytes % (Manual) 22.0 % (13.4-35.0) 04/25/21 04:56 Monocytes % (Manual) 11.0 % (0.0-7.3) H 04/25/21 04:56 Eosinophils % (Manual) 1.0 % (0.0-4.3) 04/25/21 04:56 Nucleated RBC % Not Reportable 04/25/21 04:56 Seg Neutrophils # 5.8 K/mm3 (1.8-7.7) 04/26/21 06:12 Seg Neutrophils # Man 6.5 K/mm3 (1.8-7.7) 04/25/21 04:56 Band Neutrophils # 0.0 K/mm3 04/25/21 04:56 Lymphocytes # (Manual) 2.2 K/mm3 (1.2-5.4) 04/25/21 04:56 Abs React Lymphs (Man) 0.0 K/mm3 04/25/21 04:56 Monocytes # (Manual) 1.1 K/mm3 (0.0-0.8) H 04/25/21 04:56 Eosinophils # (Manual) 0.1 K/mm3 (0.0-0.4) 04/25/21 04:56 Basophils # (Manual) 0.0 K/mm3 (0.0-0.1) 04/25/21 04:56 Metamyelocytes # 0.0 K/mm3 04/25/21 04:56 Myelocytes # 0.0 K/mm3 04/25/21 04:56 Promyelocytes # 0.0 K/mm3 04/25/21 04:56 Blast Cells # 0.0 K/mm3 04/25/21 04:56 WBC Morphology Not Reportable 04/25/21 04:56 Hypersegmented Neuts Not Reportable 04/25/21 04:56 Hyposegmented Neuts Not Reportable 04/25/21 04:56 Hypogranular Neuts Not Reportable 04/25/21 04:56 Smudge Cells Not Reportable 04/25/21 04:56 Toxic Granulation Not Reportable 04/25/21 04:56 Toxic Vacuolation Not Reportable 04/25/21 04:56 Dohle Bodies Not Reportable 04/25/21 04:56 Pelger-Huet Anomaly Not Reportable 04/25/21 04:56 Pete Rods Not Reportable 04/25/21 04:56 Platelet Estimate Consistent w auto 04/25/21 04:56 Clumped Platelets Not Reportable 04/25/21 04:56 Plt Clumps, EDTA Not Reportable 04/25/21 04:56 Large Platelets Not Reportable 04/25/21 04:56 Giant Platelets Not Reportable 04/25/21 04:56 Platelet Satelliting Not Reportable 04/25/21 04:56 Plt Morphology Comment Not Reportable 04/25/21 04:56 RBC Morphology Not Reportable 04/25/21 04:56 Dimorphic RBCs Not Reportable 04/25/21 04:56 Polychromasia Not Reportable 04/25/21 04:56 Hypochromasia Not Reportable 04/25/21 04:56 Poikilocytosis Not Reportable 04/25/21 04:56 Anisocytosis 1+ 04/25/21 04:56 Microcytosis Not Reportable 04/25/21 04:56 Macrocytosis Not Reportable 04/25/21 04:56 Spherocytes Not Reportable 04/25/21 04:56 Pappenheimer Bodies Not Reportable 04/25/21 04:56 Sickle Cells Not Reportable 04/25/21 04:56 Target Cells Not Reportable 04/25/21 04:56 Tear Drop Cells Not Reportable 04/25/21 04:56 Ovalocytes Not Reportable 04/25/21 04:56 Helmet Cells Not Reportable 04/25/21 04:[address] [place] Bodies Not Reportable 04/25/21 04:56 [place] Rings Not Reportable 04/25/21 04:56 Cindy Cells Not Reportable 04/25/21 04:56 Bite Cells Not Reportable 04/25/21 04:56 Crenated Cell Not Reportable 04/25/21 04:56 Elliptocytes Not Reportable 04/25/21 04:56 Acanthocytes (Spur) Not Reportable 04/25/21 04:56 Rouleaux Not Reportable 04/25/21 04:56 Hemoglobin C Crystals Not Reportable 04/25/21 04:56 Schistocytes Not Reportable 04/25/21 04:56 Malaria parasites Not Reportable 04/25/21 04:56 Hao Bodies Not Reportable 04/25/21 04:56 Hem Pathologist Commnt No 04/25/21 04:56 ABG pH 7.421 pH Units (7.350-7.450) 04/24/21 16:37 ABG pCO2 28.3 mm Hg 04/24/21 16:37 ABG pO2 92.5 mm Hg (80.0-90.0) H 04/24/21 16:37 ABG HCO3 18.0 mmol/L (20.0-26.0) L 04/24/21 16:37 ABG O2 Saturation 97.3 % (95.0-99.0) 04/24/21 16:37 ABG O2 Content 22.0 (0.0-44) 04/24/21 16:37 ABG Base Excess -4.7 mmol/L (-2.0-3.0) L 04/24/21 16:37 ABG Hemoglobin 16.4 gm/dl (14.0-18.0) 04/24/21 16:37 ABG Carboxyhemoglobin 1.6 % (0.0-5.0) 04/24/21 16:37 ABG Methemoglobin 0.5 % (0.0-1.5) 04/24/21 16:37 Oxyhemoglobin 95.3 % (95.0-99.0) 04/24/21 16:37 FiO2 21 % 04/24/21 16:37 Sodium 141 mmol/L (137-145) 04/26/21 06:12 Potassium 4.0 mmol/L (3.6-5.0) 04/26/21 06:12 Chloride 103.7 mmol/L (98-107) 04/26/21 06:12 Carbon Dioxide 22 mmol/L (22-30) 04/26/21 06:12 Anion Gap 19 mmol/L 04/26/21 06:12 BUN 9 mg/dL (9-20) 04/26/21 06:12 Creatinine 0.9 mg/dL (0.8-1.3) 04/26/21 06:12 Estimated GFR > 60 ml/min 04/26/21 06:12 BUN/Creatinine Ratio 10 % 04/26/21 06:12 Glucose 126 mg/dL (75-100) H 04/26/21 06:12 POC Glucose 138 mg/dL (70-105) H 04/27/21 21:13 Osmolality 321 Mosm/kg 04/24/21 13:53 Lactic Acid 6.30 mmol/L (0.7-2.0) H* 04/24/21 17:24 Calcium 9.5 mg/dL (8.4-10.2) 04/26/21 06:12 Magnesium 1.80 mg/dL (1.7-2.3) 04/24/21 13:53 Total Bilirubin 0.60 mg/dL (0.1-1.2) 04/26/21 06:12 AST 19 units/L (5-40) 04/26/21 06:12 ALT 24 units/L (7-56) 04/26/21 06:12 Alkaline Phosphatase 149 units/L (35-129) H 04/26/21 06:12 Total Creatine Kinase 139 units/L (55-170) 04/24/21 13:53 Total Protein 7.3 g/dL (6.3-8.2) 04/26/21 06:12 Albumin 4.4 g/dL (3.9-5) 04/26/21 06:12 Albumin/Globulin Ratio 1.5 % 04/26/21 06:12 TSH 0.891 mlU/mL (0.270-4.200) 04/24/21 13:53 Urine Color Yellow (Yellow) 04/24/21 13:56 Urine Turbidity Clear (Clear) 04/24/21 13:56 Urine pH 5.0 (5.0-7.0) 04/24/21 13:56 Ur Specific [place] 1.018 (1.003-1.030) 04/24/21 13:56 Urine Protein <15 mg/dl mg/dL (Negative) 04/24/21 13:56 Urine Glucose (UA) Neg mg/dL (Negative) 04/24/21 13:56 Urine Ketones Neg mg/dL (Negative) 04/24/21 13:56 Urine Blood Neg (Negative) 04/24/21 13:56 Urine Nitrite Neg (Negative) 04/24/21 13:56 Urine Bilirubin Neg (Negative) 04/24/21 13:56 Urine Urobilinogen < 2.0 mg/dL (<2.0) 04/24/21 13:56 Ur Leukocyte Esterase Neg (Negative) 04/24/21 13:56 Urine WBC (Auto) < 1.0 /HPF (0.0-6.0) 04/24/21 13:56 Urine RBC (Auto) 1.0 /HPF (0.0-6.0) 04/24/21 13:56 Salicylates < 2.0 mg/dL (2.8-20.0) L 04/24/21 13:53 Urine Opiates Screen Negative 04/24/21 13:56 Urine Methadone Screen Negative 04/24/21 13:56 Acetaminophen 5.0 ug/mL (10.0-30.0) L 04/24/21 13:53 Ur Barbiturates Screen Negative 04/24/21 13:56 Valproic Acid 2.8 ug/mL (50-100) L 04/24/21 13:53 Ur Phencyclidine Scrn Negative 04/24/21 13:56 Ur Amphetamines Screen Negative 04/24/21 13:56 U Benzodiazepines Scrn Negative 04/24/21 13:56 Urine Cocaine Screen Negative 04/24/21 13:56 U Marijuana (THC) Screen Presumptive positive 04/24/21 13:56 Drugs of Abuse Note Disclamer 04/24/21 13:56 Plasma/Serum Alcohol < 0.01 % (0-0.07) 04/24/21 13:53 Coronavirus (PCR) Negative (Negative) 04/25/21 09:41 Humphrey/IV: Voiding Method Toilet Active Medications - Current Medications Current Medications: Generic Name Dose Route Start Last Admin Trade Name Freq PRN Reason Stop Dose Admin Albuterol 2.5 mg 04/24/21 21:28 04/26/21 05:14 Albuterol 2.5 Mg/3 Ml Nebu IH 2.5 mg Q4HRT PRN Administration Shortness Of Breath Cyclobenzaprine HCl 5 mg 04/27/21 10:31 Cyclobenzaprine 10 Mg Tab PO TID PRN Spasms Enoxaparin Sodium 40 mg 04/25/21 22:00 04/27/21 21:12 Enoxaparin 40 Mg/0.4 Ml Inj SUB-Q 40 mg QDAY@2200 LUIS FELIPE Administration Protocol Famotidine 20 mg 04/26/21 10:00 04/27/21 09:48 Famotidine 20 Mg Tab PO 20 mg QDAY LUIS FELIPE Administration Fluticasone Propionate 100 mcg 04/26/21 15:00 04/27/21 09:54 Fluticasone Propionate Nasal [place] 16 Gm NS 100 mcg QDAY PRN Administration Allergy Symptoms Folic Acid 1 mg 04/25/21 10:00 04/27/21 09:48 Folic Acid 1 Mg Tab PO 1 mg QDAY LUIS FELIPE Administration Haloperidol Lactate 5 mg 04/24/21 13:22 Haloperidol Lactate 5 Mg/1 Ml Inj IM Q6HR PRN Agitation Fomepizole 1,190 mg/ Sodium 101.19 mls @ 202.38 mls/hr 04/27/21 04:00 04/28/21 05:12 Chloride IV 202.38 mls/hr Q12H LUIS FELIPE Administration Insulin Human Lispro 0 unit 04/26/21 11:30 04/27/21 21:13 Insulin Lispro 100 Unit/Ml SUB-Q Not Given A[facility]S [facility] Protocol Lorazepam 2 mg 04/24/21 13:22 Lorazepam 2 Mg/Ml Vial IM Q4HR PRN Agitation Miscellaneous Medication 40 mg 04/27/21 10:45 Latuda PO DAILY [facility] Miscellaneous Medication 20 units 04/27/21 10:45 Basaglar Kwikpen U-100 SQ DAILY [facility] Miscellaneous Medication 1 each 04/27/21 10:45 Cetirizine Hcl/Pseudoephedrine [Zyrtec-D Tablet] PO DAILY [facility] Multivitamins 1 each 04/25/21 10:00 04/27/21 09:48 Multivitamins ,Therapeutic Tab PO 1 each QDAY LUIS FELIPE Administration Pyridoxine HCl 100 mg 04/24/21 18:00 04/27/21 09:47 Pyridoxine 50 Mg Tab PO 100 mg QDAY [facility] Administration Sodium Chloride 10 ml 04/24/21 22:00 04/27/21 21:17 Sodium Chloride 0.9% 10 Ml Flush Syringe IV 10 ml BID LUIS FELIPE Administration Sodium Chloride 10 ml 04/24/21 17:30 Sodium Chloride 0.9% 10 Ml Flush Syringe IV PRN PRN LINE FLUSH Thiamine HCl 100 mg 04/24/21 17:13 04/27/21 09:48 Thiamine 100 Mg Tab PO 100 mg QDAY LUIS FELIPE Administration
[2021-04-28] MEDS ORDERED: DEXTROSE 50% IN WATER (25GM) 50 ML SYRINGE IV PRN (10:00)
[2021-04-28] MEDS ORDERED: INSULIN LISPRO 100 UNIT/ML SUB-Q SCH (12:00)
[2021-04-28] MEDS: PYRIDOXINE 50 MG TAB PO SCH (12:15)
[2021-04-28] MEDS: FAMOTIDINE 20 MG TAB PO SCH (12:15)
[2021-04-28] MEDS: THIAMINE 100 MG TAB PO SCH (12:15)
[2021-04-28] MEDS: FOLIC ACID 1 MG TAB PO SCH (12:16)
[2021-04-28] MEDS: MULTIVITAMINS ,THERAPEUTIC TAB PO SCH (12:16)
--- NOTE | 2021-04-28 12:25 | Progress Note ---
Assessment and Plan 26 YO Male with Depression, Suicidal Ideation, Asthma, PTSD, PSA, Nicotine Dependence, DM, Asthma presents to ED for evaluation. Pt reports " I hate everything, I want to , I want to kill people". Patient reports consuming 1 cup of antifreeze 15 minutes prior to presentation to ER in an attempt to take his own life. Patient transported to [facility] via private vehicle for further care and evaluation of the aforementioned symptoms. Patient found to have suicidal Frederci ideation complicated by suicide attempt with antifreeze ingestion, metabolic acidosis, psychosis. Patient admitted to ICU. Poison control notified, and the patient was initiated on Fomepizone therapy as an antidote specific for ethylene glycol ingestion due to concern regarding ensuing end organ damage as per poison control recommendations. The patient was also initiated on thiamine, and vitamin B6 therapy. The patient was placed on 1013 and mental health consult placed in ED. Patient awake. No respiratory distress. Patient afebrile. Blood pressure 1 19/79. Patient is on room air. o2 saturation 100%. - Patient Problems (1) Ethylene glycol poisoning Status: Acute Qualifiers: Encounter type: initial encounter Plan to address problem: Patient given Fomerezone Management as per primary care. (2) High serum osmolar gap Status: Acute Plan to address problem: Treating for Ethylene Glycol ingestion. (3) Nicotine dependence Status: Acute Qualifiers: Nicotine product type: cigarettes Substance use status: in withdrawal Qualified Code(s): F17.213 - Nicotine dependence, cigarettes, with withdrawal Plan to address problem: Will career technical counselor to stop smoking. (4) Polysubstance abuse Status: Acute Plan to address problem: Recommend psychiatry consultation. (5) Suicide attempt Status: Acute Plan to address problem: Psychiatry consultation. Subjective Date of service: 04/28/21 Principal diagnosis: Antifreeze ingestion Interval history: 26 YO Male with Depression, Suicidal Ideation, Asthma, PTSD, PSA, Nicotine Dependence, DM, Asthma presents to ED for evaluation. Pt reports " I hate ever ything, I want to , I want to kill people". Patient reports consuming 1 cup of antifreeze 15 minutes prior to presentation to ER in an attempt to take his own life. Patient transported to [facility] via private vehicle for further care and evaluation of the aforementioned symptoms. Patient found to have suicidal Frederic ideation complicated by suicide attempt with antifreeze ingestion, metabolic acidosis, psychosis. Patient admitted to ICU. Poison control notified, and the patient was initiated on Fomepizone therapy as an antidote specific for ethylene glycol ingestion due to concern regarding ensuing end organ damage as per poison control recommendations. The patient was also initiated on thiamine, and vitamin B6 therapy. The patient was placed on 1013 and mental health consult placed in ED. Patient awake. No respiratory distress. Patient afebrile. Blood pressure 119/79. Patient is on room air. o2 saturation 100%. Objective Vital Signs - 12hr 04/28/21 04:47 Temperature 97.7 F Pulse Rate 84 Respiratory 18 Rate Blood Pressure 126/94 O2 Sat by Pulse 97 Oximetry Constitutional: no acute distress, alert Eyes: non-icteric ENT: oropharynx moist Neck: supple, no lymphadenopathy, no JVD Effort: normal Percussion: Bilateral: not dull Cardiovascular: regular rate and rhythm Gastrointestinal: normoactive bowel sounds, soft, non-tender, non-distended Integumentary: normal Extremities: no cyanosis, no edema, pulses normal, no ischemia or petechiae Neurologic: non-focal exam, pupils equal and round, CN II-XII normal, motor strength normal and Psychiatric: mood appropriate, affect normal CBC and BMP: 04/26/21 06:12 04/26/21 06:12 ABG, PT/INR, D-dimer: ABG ABG pH 7.421 pH Units (7.350-7.450) 04/24/21 16:37 ABG pCO2 28.3 mm Hg 04/24/21 16:37 ABG pO2 92.5 mm Hg (80.0-90.0) H 04/24/21 16:37 ABG O2 Saturation 97.3 % (95.0-99.0) 04/24/21 16:37 Abnormal lab findings: Abnormal Labs 04/24/21 04/24/21 04/24/21 13:53 13:53 13:53 WBC RBC 5.29 H Hgb 15.9 H Hct MCV 83 L MCHC 36 H [place] % (Auto) 12.7 H Eos % (Auto) [place] # (Auto) 1.3 H Eos # (Auto) Monocytes % (Manual) Monocytes # (Manual) ABG pO2 ABG HCO3 ABG Base Excess Carbon Dioxide 21 L BUN 7 L Creatinine Glucose POC Glucose Lactic Acid 5.30 H* Alkaline Phosphatase 154 H Salicylates Acetaminophen Valproic Acid 04/24/21 04/24/21 04/24/21 13:53 13:53 16:37 WBC RBC Hgb Hct MCV MCHC [place] % (Auto) Eos % (Auto) [place] # (Auto) Eos # (Auto) Monocytes % (Manual) Monocytes # (Manual) ABG pO2 92.5 H ABG HCO3 18.0 L ABG Base Excess -4.7 L Carbon Dioxide BUN Creatinine Glucose POC Glucose Lactic Acid Alkaline Phosphatase Salicylates < 2.0 L Acetaminophen 5.0 L Valproic Acid 2.8 L 04/24/21 04/24/21 04/25/21 17:24 20:18 00:16 WBC RBC Hgb Hct MCV MCHC [place] % (Auto) Eos % (Auto) [place] # (Auto) Eos # (Auto) Monocytes % (Manual) Monocytes # (Manual) ABG pO2 ABG HCO3 ABG Base Excess Carbon Dioxide BUN Creatinine Glucose POC Glucose 144 H 123 H Lactic Acid 6.30 H* Alkaline Phosphatase Salicylates Acetaminophen Valproic Acid 04/25/21 04/25/21 04/25/21 04:56 04:56 11:52 WBC RBC 5.33 H Hgb 16.1 H Hct MCV 83 L MCHC 37 H [place] % (Auto) Eos % (Auto) [place] # (Auto) Eos # (Auto) Monocytes % (Manual) 11.0 H Monocytes # (Manual) 1.1 H ABG pO2 ABG HCO3 ABG Base Excess Carbon Dioxide BUN 6 L Creatinine 0.7 L Glucose 129 H POC Glucose 119 H Lactic Acid Alkaline Phosphatase Salicylates Acetaminophen Valproic Acid 04/26/21 04/26/21 04/26/21 00:01 05:09 06:12 WBC 12.2 H RBC 5.78 H Hgb 17.3 H Hct 47.5 H MCV 82 L MCHC 36 H [place] % (Auto) 14.0 H Eos % (Auto) 4.8 H [place] # (Auto) 1.7 H Eos # (Auto) 0.6 H Monocytes % (Manual) Monocytes # (Manual) ABG pO2 ABG HCO3 ABG Base Excess Carbon Dioxide BUN Creatinine Glucose POC Glucose 130 H 115 H Lactic Acid Alkaline Phosphatase Salicylates Acetaminophen Valproic Acid 04/26/21 04/26/21 04/26/21 06:12 11:32 16:33 WBC RBC Hgb Hct MCV MCHC [place] % (Auto) Eos % (Auto) [place] # (Auto) Eos # (Auto) Monocytes % (Manual) Monocytes # (Manual) ABG pO2 ABG HCO3 ABG Base Excess Carbon Dioxide BUN Creatinine Glucose 126 H POC Glucose 115 H 110 H Lactic Acid Alkaline Phosphatase 149 H Salicylates Acetaminophen Valproic Acid 04/26/21 04/27/21 04/27/21 21:25 10:00 11:31 WBC RBC Hgb Hct MCV MCHC [place] % (Auto) Eos % (Auto) [place] # (Auto) Eos # (Auto) Monocytes % (Manual) Monocytes # (Manual) ABG pO2 ABG HCO3 ABG Base Excess Carbon Dioxide BUN Creatinine Glucose POC Glucose 122 H 161 H 128 H Lactic Acid Alkaline Phosphatase Salicylates Acetaminophen Valproic Acid 04/27/21 04/27/21 04/28/21 15:16 21:13 07:52 WBC RBC Hgb Hct MCV MCHC [place] % (Auto) Eos % (Auto) [place] # (Auto) Eos # (Auto) Monocytes % (Manual) Monocytes # (Manual) ABG pO2 ABG HCO3 ABG Base Excess Carbon Dioxide BUN Creatinine Glucose POC Glucose 159 H 138 H 120 H Lactic Acid Alkaline Phosphatase Salicylates Acetaminophen Valproic Acid 04/28/21 11:25 WBC RBC Hgb Hct MCV MCHC [place] % (Auto) Eos % (Auto) [place] # (Auto) Eos # (Auto) Monocytes % (Manual) Monocytes # (Manual) ABG pO2 ABG HCO3 ABG Base Excess Carbon Dioxide BUN Creatinine Glucose POC Glucose 110 H Lactic Acid Alkaline Phosphatase Salicylates Acetaminophen Valproic Acid Allied health notes reviewed: nursing
[2021-04-28] MEDS ORDERED: INSULIN GLARGINE 100 UNITS/ML SUB-Q SCH (22:00)
[2021-04-28] MEDS: ENOXAPARIN 40 MG/0.4 ML INJ SUB-Q SCH (22:19)
[2021-04-29] MEDS: FOMEPIZOLEV IV SCH ×3 (04:04→04:28)
[2021-04-29] MEDS: SODIUM CHLORIDE 0.9% IV SCH ×3 (04:04→04:28)
[2021-04-29] MEDS: INSULIN LISPRO 100 UNIT/ML SUB-Q SCH ×2 (08:13→12:28)
[2021-04-29] MEDS: MULTIVITAMINS ,THERAPEUTIC TAB PO SCH (10:16)
[2021-04-29] MEDS: FOLIC ACID 1 MG TAB PO SCH (10:16)
[2021-04-29] MEDS: FAMOTIDINE 20 MG TAB PO SCH (10:16)
[2021-04-29] MEDS: THIAMINE 100 MG TAB PO SCH (10:16)
[2021-04-29] MEDS: PYRIDOXINE 50 MG TAB PO SCH (10:17)
[2021-04-29 13:45] VITALS: BP 135/96
--- NOTE | 2021-04-29 14:15 | Progress Note ---
Assessment and Plan 26 YO Male with Depression, Suicidal Ideation, Asthma, PTSD, PSA, Nicotine Dependence, DM, Asthma presents to ED for evaluation. Pt reports " I hate everything, I want to , I want to kill people". Patient reports consuming 1 cup of antifreeze 15 minutes prior to presentation to ER in an attempt to take his own life. Patient transported to [facility] via private vehicle for further care and evaluation of the aforementioned symptoms. Patient found to have suicidal Frederic ideation complicated by suicide attempt with antifreeze ingestion, metabolic acidosis, psychosis. Patient admitted to ICU. Poison control notified, and the patient was initiated on Fomepizone therapy as an antidote specific for ethylene glycol ingestion due to concern regarding ensuing end organ damage as per poison control recommendations. The patient was also initiated on thiamine, and vitamin B6 therapy. The patient was placed on 1013 and mental health consult placed in ED. Patient sleeping at this time. No respiratory distress. Patient afebrile. Blood pressure 130/80. Patient is on room air. o2 saturation 96%. - Patient Problems (1) Ethylene glycol poisoning Current Visit: Yes Status: Acute Plan to address problem: Patient given Fomerezone Management as per primary care. (2) High serum osmolar gap Current Visit: Yes Status: Acute Plan to address problem: Treating for Ethylene Glycol ingestion. (3) Nicotine dependence Current Visit: Yes Status: Acute Qualifiers: Qualified Code(s): F17.213 - Nicotine dependence, cigarettes, with withdrawal Plan to address problem: Will commercial counsel to stop smoking. (4) Polysubstance abuse Current Visit: Yes Status: Acute Plan to address problem: Recommend psychiatry consultation. (5) Suicide attempt Current Visit: Yes Status: Acute Plan to address problem: Psychiatry consultation. Subjective Date of service: 04/29/21 Principal diagnosis: Antifreeze ingestion Interval history: 26 YO Male with Depression, Suicidal Ideation, Asthma, PTSD, PSA, Nicotine Dependence, DM, Asthma presents to ED for evaluation. Pt reports " I hate everything, I want to , I want to kill people". Patient reports consuming 1 cup of antifreeze 15 minutes prior to presentation to ER in an attempt to take his own life. Patient transported to [facility] via private vehicle for further care and evaluation of the aforementioned symptoms. Patient found to have suicidal Frederic ideation complicated by suicide attempt with antifreeze ingestion, metabolic acidosis, psychosis. Patient admitted to ICU. Poison control notified, and the patient was initiated on Fomepizone therapy as an antidote specific for ethylene glycol ingestion due to concern regarding ensuing end organ damage as per poison control recommendations. The patient was also initiated on thiamine, and vitamin B6 therapy. The patient was placed on 1013 and mental health consult placed in ED. Patient sleeping at this time. No respiratory distress. Patient afebrile. Blood pressure 130/80. Patient is on room air. o2 saturation 96%. Objective Vital Signs - 12hr 04/29/21 04/29/21 04/29/21 06:30 10:00 12:53 Temperature 98.0 F 98.0 F Pulse Rate 96 H 100 H Respiratory 20 18 Rate Blood Pressure 119/79 135/96 O2 Sat by Pulse 100 100 94 Oximetry Constitutional: no acute distress, asleep Eyes: non-icteric ENT: oropharynx moist Neck: supple, no lymphadenopathy, no JVD Effort: normal Percussion: Bilateral: not dull Cardiovascular: regular rate and rhythm Gastrointestinal: normoactive bowel sounds, soft, non-tender, non-distended Integumentary: normal Extremities: no cyanosis, no edema, pulses normal, no ischemia or petechiae Neurologic: non-focal exam, pupils equal and round, CN II-XII normal, motor strength normal and Psychiatric: mood appropriate, affect normal CBC and BMP: 04/26/21 06:12 04/26/21 06:12 ABG, PT/INR, D-dimer: ABG ABG pH 7.421 pH Units (7.350-7.450) 04/24/21 16:37 ABG pCO2 28.3 mm Hg 04/24/21 16:37 ABG pO2 92.5 mm Hg (80.0-90.0) H 04/24/21 16:37 ABG O2 Saturation 97.3 % (95.0-99.0) 04/24/21 16:37 Abnormal lab findings: Abnormal Labs 04/24/21 04/24/21 04/24/21 13:53 13:53 13:53 WBC RBC 5.29 H Hgb 15.9 H Hct MCV 83 L MCHC 36 H [place] % (Auto) 12.7 H Eos % (Auto) [place] # (Auto) 1.3 H Eos # (Auto) Monocytes % (Manual) Monocytes # (Manual) ABG pO2 ABG HCO3 ABG Base Excess Carbon Dioxide 21 L BUN 7 L Creatinine Glucose POC Glucose Lactic Acid 5.30 H* Alkaline Phosphatase 154 H Salicylates Acetaminophen Valproic Acid 04/24/21 04/24/21 04/24/21 13:53 13:53 16:37 WBC RBC Hgb Hct MCV MCHC [place] % (Auto) Eos % (Auto) [place] # (Auto) Eos # (Auto) Monocytes % (Manual) Monocytes # (Manual) ABG pO2 92.5 H ABG HCO3 18.0 L ABG Base Excess -4.7 L Carbon Dioxide BUN Creatinine Glucose POC Glucose Lactic Acid Alkaline Phosphatase Salicylates < 2.0 L Acetaminophen 5.0 L Valproic Acid 2.8 L 04/24/21 04/24/21 04/25/21 17:24 20:18 00:16 WBC RBC Hgb Hct MCV MCHC [place] % (Auto) Eos % (Auto) [place] # (Auto) Eos # (Auto) Monocytes % (Manual) Monocytes # (Manual) ABG pO2 ABG HCO3 ABG Base Excess Carbon Dioxide BUN Creatinine Glucose POC Glucose 144 H 123 H Lactic Acid 6.30 H* Alkaline Phosphatase Salicylates Acetaminophen Valproic Acid 04/25/21 04/25/21 04/25/21 04:56 04:56 11:52 WBC RBC 5.33 H Hgb 16.1 H Hct MCV 83 L MCHC 37 H [place] % (Auto) Eos % (Auto) [place] # (Auto) Eos # (Auto) Monocytes % (Manual) 11.0 H Monocytes # (Manual) 1.1 H ABG pO2 ABG HCO3 ABG Base Excess Carbon Dioxide BUN 6 L Creatinine 0.7 L Glucose 129 H POC Glucose 119 H Lactic Acid Alkaline Phosphatase Salicylates Acetaminophen Valproic Acid 04/26/21 04/26/21 04/26/21 00:01 05:09 06:12 WBC 12.2 H RBC 5.78 H Hgb 17.3 H Hct 47.5 H MCV 82 L MCHC 36 H [place] % (Auto) 14.0 H Eos % (Auto) 4.8 H [place] # (Auto) 1.7 H Eos # (Auto) 0.6 H Monocytes % (Manual) Monocytes # (Manual) ABG pO2 ABG HCO3 ABG Base Excess Carbon Dioxide BUN Creatinine Glucose POC Glucose 130 H 115 H Lactic Acid Alkaline Phosphatase Salicylates Acetaminophen Valproic Acid 06/13/21 06/13/21 06/13/21 06:12 11:32 16:33 WBC RBC Hgb Hct MCV MCHC [place] % (Auto) Eos % (Auto) [place] # (Auto) Eos # (Auto) Monocytes % (Manual) Monocytes # (Manual) ABG pO2 ABG HCO3 ABG Base Excess Carbon Dioxide BUN Creatinine Glucose 126 H POC Glucose 115 H 110 H Lactic Acid Alkaline Phosphatase 149 H Salicylates Acetaminophen Valproic Acid 04/26/21 04/27/21 04/27/21 21:25 10:00 11:31 WBC RBC Hgb Hct MCV MCHC [place] % (Auto) Eos % (Auto) [place] # (Auto) Eos # (Auto) Monocytes % (Manual) Monocytes # (Manual) ABG pO2 ABG HCO3 ABG Base Excess Carbon Dioxide BUN Creatinine Glucose POC Glucose 122 H 161 H 128 H Lactic Acid Alkaline Phosphatase Salicylates Acetaminophen Valproic Acid 04/27/21 04/27/21 04/28/21 15:16 21:13 07:52 WBC RBC Hgb Hct MCV MCHC [place] % (Auto) Eos % (Auto) [place] # (Auto) Eos # (Auto) Monocytes % (Manual) Monocytes # (Manual) ABG pO2 ABG HCO3 ABG Base Excess Carbon Dioxide BUN Creatinine Glucose POC Glucose 159 H 138 H 120 H Lactic Acid Alkaline Phosphatase Salicylates Acetaminophen Valproic Acid 04/28/21 04/28/21 04/29/21 11:25 22:05 08:03 WBC RBC Hgb Hct MCV MCHC [place] % (Auto) Eos % (Auto) [place] # (Auto) Eos # (Auto) Monocytes % (Manual) Monocytes # (Manual) ABG pO2 ABG HCO3 ABG Base Excess Carbon Dioxide BUN Creatinine Glucose POC Glucose 110 H 117 H 117 H Lactic Acid Alkaline Phosphatase Salicylates Acetaminophen Valproic Acid Allied health notes reviewed: nursing
--- NOTE | 2021-04-29 14:17 | Discharge Summary ---
Providers - Providers Date of Admission: 04/24/21 16:32 Date of discharge: 04/29/21 Attending physician: TITO VALDEZ 04/24/21 13:17 Consult to Mental Health [CONS] Stat Reason For Exam: overdose 04/24/21 15:48 Consult to Physician [CONS] Urgent Comment: Consulting Provider: FLAKITA HASKINS Physician Instructions: Reason For Exam: antifreeze od 04/24/21 15:49 Consult to Physician [CONS] Urgent Comment: Consulting Provider: TESSIE DE GUZMAN Physician Instructions: Reason For Exam: antifreeze od Primary care physician: END LATHE OPERATOR Hospitalization Reason for admission: Ethylene glycol ingestion/suicidal attempt Condition: Stable Hospital course: I hate everything, I want to , I want to kill people History of present illness: 26 YO Male with Depression, Suicidal Ideation, Asthma, PTSD, PSA, Nicotine Dependence, DM, Asthma presents to ED for evaluation. Pt reports " I hate everything, I want to , I want to kill people". Patient reports consuming 1 cup of antifreeze 15 minutes prior to presentation to ER in an attempt to take his own life. Patient transported to [facility] via private vehicle for further care and evaluation of the aforementioned symptoms. The patient is seen and evaluated in the emergency department. All lab and imaging studies reviewed. Patient found to have suicidal Frederic ideation complicated by suicide attempt with antifreeze ingestion, metabolic acidosis, psychosis. Patient admitted to ICU. Poison control notified, and the patient was initiated on Fomepizone therapy as an antidote specific for ethylene glycol ingestion due to concern regarding ensuing end organ damage as per poison control recommendations. The patient was also initiated on thiamine, and vitamin B6 therapy. The patient was placed on 1013 and mental health consult placed in ED. critical care team consulted in ED. Nephrology team consulted in ED. No further history is obtainable. Patient minimally cooperative with exam and interview. No prior admission for review. All medication listed at time of admission has been reconciled. Discharge diagnosis; -- Ethylene glycol poisoning Current Visit: Yes Status: Acute Poison control notified. Patient admitted to ICU and initiated on Fomepizone therapy, vitamin B6 therapy, as well as thiamine. CMP, repeat CMP in a.m., neuro check, seizure precautions. Patient stable Patient on fomepizole at a lower dose -- Suicide attempt Current Visit: Yes Status: Acute : Patient was placed on 1013, psych team has rescinded 1013 Continue supportive care. Patient denies any depression suicidal thoughts or ideation Psych cleared for discharge --High serum osmolar gap Current Visit: Yes Status: Acute Improved with IV fluids plenty oral liquids, advised -- Lactic acidosis; POA Current Visit: Yes Status: Acute Resolved --Ongoing tobacco use / Current Visit: Yes Status: Acute Smoking cessation counseling done advised to quit tobacco use, supportive care, behavior change counseling, +15 minutes. -- Polysubstance abuse Current Visit: Yes Status: Acute Supportive care, neuro check, seizure precautions, IV fluid resuscitation therapy as clinically indicated. Urine drug screen Disposition: DC- TO HOME OR SELFCARE Final Discharge Diagnosis (Prints w/discharge instructions): Ethylene glycol poisoning. Suicidal attempt[psych cleared 101]. High anion gap improved. Lactic acidosis improved. Ongoing tobacco use. Smoking cessation counseling done. Polysubstance abuse Time spent for discharge: 35 min Core Measure Documentation - Palliative Care Palliative Care/ Comfort Measures: Not Applicable - Core Measures Any of the following diagnoses?: none Exam - Constitutional Vitals: Temp Pulse Resp BP Pulse Ox 98.0 F 100 H 18 135/96 94 04/29/21 12:53 04/29/21 12:53 04/29/21 12:53 04/29/21 12:53 04/29/21 12:53 General appearance: Present: no acute distress, well-nourished - EENT Eyes: Present: PERRL, EOM intact - Neck Neck: Present: supple, normal ROM - Respiratory Respiratory effort: normal Respiratory: bilateral: diminished, negative: rales, rhonchi, wheezing - Cardiovascular Rhythm: regular Heart Sounds: Present: S1 & S2 - Extremities Extremities: no ischemia, No edema - Abdominal General gastrointestinal: Present: soft, non-tender, non-distended, normal bowel sounds - Integumentary Integumentary: Present: clear, warm - Musculoskeletal Musculoskeletal: strength equal bilaterally, generalized weakness - Psychiatric Psychiatric: appropriate mood/affect, cooperative - Neurologic Neurologic: moves all extremities Plan Activity: advance as tolerated Diet: regular Special Instructions: smoking cessation Additional Instructions: You have worsening symptoms contact MD or go to emergency room. Smoking cessation strongly advised. Advised to quit recreational drug use Follow up with: PRIMARY CARE, [Primary Care Provider] - 3-5 Days ILIANA NEWELL MD [Staff Physician] - 7 Days KOJO DELEON MD [Staff Physician] - 7 Days
--- NOTE | 2021-04-30 12:37 | Electrocardiograph Report ---
[facility] Test Date: 2021-04-24 Test Time: 14:34:01 Pat Name: PRETTY KUNZ JR Department: Room: A376 1 Gender: M Material [employer]vers: KAREN HYLTONB: 1995 Requested By: JOHN BECKER Order Number: [id number] Reading MD: Susu Ann Measurements Intervals [place] Rate: 73 P: 24 UT: 157 QRS: 6 QRSD: 89 T: 53 QT: 368 QTc: 403 Interpretive Statements Sinus rhythm Ventricular premature complex No previous ECG available for comparison Electronically Signed On 04-30-2021 12:37:10 EDT by Susu Ann
== END 2021-04-29 14:52 | disposition home or self-care (01) | DRG 918 ==
LOC: ED 12:30 → CC1 16:32 → IMCU 04-25 17:37 → 3A 04-26 09:25
PROVIDERS: ADMIT Internal Medicine; ATTEND Internal Medicine
PROC: 4A033R1 Measurement of Arterial Saturation, Peripheral, Percutaneous Approach (ICD-10-PCS; principal; 2021-04-24)
DX: T42.0X2A Poisoning by hydantoin derivatives, intentional self-harm, initial encounter (principal); Z20.822 Contact with and (suspected) exposure to COVID-19; R74.8 Abnormal levels of other serum enzymes; E87.2 Acidosis; F25.9 Schizoaffective disorder, unspecified; J45.909 Unspecified asthma, uncomplicated; F43.10 Post-traumatic stress disorder, unspecified; R97.20 Elevated prostate specific antigen [PSA]; E11.9 Type 2 diabetes mellitus without complications; T52.8X2A Toxic effect of other organic solvents, intentional self-harm, initial encounter; F31.9 Bipolar disorder, unspecified; F14.90 Cocaine use, unspecified, uncomplicated; E66.9 Obesity, unspecified; F12.90 Cannabis use, unspecified, uncomplicated; F15.90 Other stimulant use, unspecified, uncomplicated; F19.10 Other psychoactive substance abuse, uncomplicated; F17.213 Nicotine dependence, cigarettes, with withdrawal; Z72.89 Other problems related to lifestyle; Z71.6 Tobacco abuse counseling; Z68.28 Body mass index [BMI] 28.0-28.9, adult; Z79.84 Long term (current) use of oral hypoglycemic drugs; Z88.8 Allergy status to other drugs, medicaments and biological substances; Z88.1 Allergy status to other antibiotic agents; Z88.5 Allergy status to narcotic agent; Z82.49 Family history of ischemic heart disease and other diseases of the circulatory system; Y92.89 Other specified places as the place of occurrence of the external cause
CPT/HCPCS: 36415; 36600; 80053; 80164; 80307; 80320; 81001; 82140; 82550; 82693; 82803; 82805; 82962; 83735; 83930; 84443; 85007; 85025; 93005; 94640; 96365; G0378; G0480; J1451; J1650; J1815; J7120; U0003

== ENCOUNTER 2021-09-03 07:12 | Emergency (ER) | payer MEDICAID ==
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
[2021-09-03 08:50] LABS: Basophils # (Auto) 0.1 K/mm3 (0.0-0.1); Basophils % (Auto) 0.9 % (0.0-1.8); Eosinophils # (Auto) 0.4 K/mm3 (0.0-0.4); Eosinophils % (Auto) 2.9 % (0.0-4.3); Hematocrit 47.3 % (35.5-45.6); Hemoglobin 16.2 gm/dl (11.8-15.2); Lymphocytes # (Auto) 4.1 K/mm3 (1.2-5.4); Lymphocytes % (Auto) 27.3 % (13.4-35.0); Mean Corpuscular HGB Conc 34 % (32-34); Mean Corpuscular Volume 84 fl (84-94); Monocytes # (Auto) 1.5 K/mm3 (0.0-0.8); Monocytes % (Auto) 9.7 % (0.0-7.3); Platelet Count 311 K/mm3 (140-440); Red Blood Count 5.66 M/mm3 (3.65-5.03); Red Cell Distribution Width 14.1 % (13.2-15.2)
[2021-09-03 09:07] LABS: BUN/Creatinine Ratio 12; Blood Urea Nitrogen 11 mg/dL (9-20); Calcium 8.8 mg/dL (8.4-10.2); Hemolysis Index 6
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
[2021-09-03 13:28] LABS: Bilirubin,Urine NEG (Negative); Blood,Urine NEG (Negative); Color,Urine Yellow (Yellow); Mucus,Urine FEW /HPF; Protein,Urine <15 mg/dL mg/dL (Negative); WBC,Urine < 1.0 /HPF (0.0-6.0)
[2021-09-03 13:31] LABS: Amphetamine Screen,Urine Negative; Benzodiazepines Screen,Urine Negative; Cocaine Screen,Urine Negative; Methadone Screen,Urine Negative; Opiate Screen,Urine Negative
[2021-09-03 13:53] LABS: Cannabinoid Screen,Urine Positive
[2021-09-03] MEDS ORDERED: LATUDA 80 MG PO SCH (22:00)
[2021-09-04 02:05] VITALS: BP 129/93
[2021-09-04] MEDS ORDERED: LATUDA 80 MG TABLET PO SCH (18:00)
== END 2021-09-04 09:46 ==
LOC: ED 07:12
DX: F25.0 Schizoaffective disorder, bipolar type (principal); R45.851 Suicidal ideations; Z20.822 Contact with and (suspected) exposure to COVID-19; E11.8 Type 2 diabetes mellitus with unspecified complications; F43.10 Post-traumatic stress disorder, unspecified; J45.909 Unspecified asthma, uncomplicated; Z88.8 Allergy status to other drugs, medicaments and biological substances; Z88.9 Allergy status to unspecified drugs, medicaments and biological substances
CPT/HCPCS: 36415; 80048; 80307; 81001; 82962; 85025; 99285; J3246; U0003; 80320; G0480

== ENCOUNTER 2021-11-27 04:26 | Emergency (ER) | payer MEDICAID ==
--- NOTE | 2021-11-27 04:41 | Event Note ---
Date: 11/27/21 The patient was evaluated in the emergency department for symptoms described in the history of present illness. He/she was evaluated in the context of the global COVID-19 pandemic, which necessitated consideration that the patient might be at risk for infection with the virus that causes COVID-19. Institutional protocols and algorithms that pertain to the evaluation of patients at risk for COVID-19 are in a state of rapid change based on information released by regulatory bodies including the CDC and federal and state organizations. These policies and algorithms were followed during the patient's care in the emergency department. Please note that these policies, procedures and recommendations changed on a rapid basis. Medical screening examination note: 26-year-old gentleman, with a history of psychiatric disease, and antifreeze overdose, admitted by myself to this hospital in the past for ethylene glycol toxicity, presenting to the ER today with a complaint of painless suicidality and hallucinations. He states that today he has not tried to overdose on anything. He denies physical pain and specifically denies ethylene glycol ingestion. He drove himself to the hospital. He denies COVID symptoms. Placed patient on 1013. Obtain appropriate laboratory studies, including serum osmolality. Detailed history and physical examination, to be performed by oncoming ER provider. Vital Signs 11/27/21 04:28 Temperature 98.8 F Pulse Rate 88 Respiratory 20 Rate Blood Pressure 140/81 O2 Sat by Pulse 95 Oximetry
[2021-11-27 05:22] LABS: Basophils # (Auto) 0.1 K/mm3 (0.0-0.1); Eosinophils # (Auto) 0.2 K/mm3 (0.0-0.4); Eosinophils % (Auto) 2.4 % (0.0-4.3); Hemoglobin 15.2 gm/dl (11.8-15.2); Lymphocytes # (Auto) 1.8 K/mm3 (1.2-5.4); Lymphocytes % (Auto) 21.6 % (13.4-35.0); Mean Corpuscular HGB Conc 35 % (32-34); Mean Corpuscular Volume 84 fl (84-94); Monocytes # (Auto) 1.1 K/mm3 (0.0-0.8); Monocytes % (Auto) 13.2 % (0.0-7.3); Platelet Count 302 K/mm3 (140-440); Red Cell Distribution Width 13.8 % (13.2-15.2)
[2021-11-27 05:26] LABS: Bilirubin,Urine NEG (Negative); Blood,Urine NEG (Negative); Color,Urine Yellow (Yellow); Mucus,Urine FEW /HPF; Protein,Urine <15 mg/dL mg/dL (Negative); RBC,Urine < 1.0 /HPF (0.0-6.0); Urobilinogen,Urine < 2.0 mg/dL (<2.0); WBC,Urine < 1.0 /HPF (0.0-6.0)
[2021-11-27 05:28] LABS: Amphetamine Screen,Urine Negative; Benzodiazepines Screen,Urine Negative; Cocaine Screen,Urine Negative; Methadone Screen,Urine Negative; Opiate Screen,Urine Negative
[2021-11-27 05:43] LABS: Cannabinoid Screen,Urine Positive
[2021-11-27 05:46] LABS: Alanine Aminotransferase 48 units/L (7-56); Albumin 4.4 g/dL (3.9-5); BUN/Creatinine Ratio 10; Blood Urea Nitrogen 8 mg/dL (9-20); Calcium 9.1 mg/dL (8.4-10.2); Hemolysis Index 4
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
--- NOTE | 2021-11-27 09:08 | Consultation ---
History of Present Illness - Reason for Consult Consult date: 11/27/21 Reason for consult: SI - History of Present Psychiatric Illness The patient was seen today. He is a/o x 3. The patient is calm, cooperative and polite. He says "I'm doing alright" when asked. The patient says he was hearing voices yesterday at work telling him "fk you, and talking about my past." He denies them telling him to do self harm or harm to others. He denies any hallucinations during the evaluation. He says "the voices have always been there on and off. Meds don't seem to help with that." The patient says he got into an argument with his dad. He says "that's the only reason I felt suicidal. I'm not now. My dad doesn't leave me alone." He says he takes Haldol and Cogentin and has been compliant with them. He denies any illicit drug use, alcohol or nicotine. PSYCH HISTORY Diagnoses: Schizoaffecttive Suicide attempts or Self-harm behavior: No Prior psychiatric hospitalizations: Yes Substance Abuse history: Denies Previous psychiatric medications tried: cogentin and haldol Outpatient treatment: yes PAST MEDICAL HISTORY: Family Psychiatric History: None reported or documented SOCIAL HISTORY Marital Status: Single Living Arrangements: with parents Employment Status: employed Access to guns/weapons: Denies Education: 12th grade History of Abuse: Denies Legal History: none MENTAL STATUS EXAMINATION General Appearance and Behavior: Age appropriate, good hygiene, wearing appropriate clothes, calm, cooperative, polite Cooperation: Participating Psychomotor Behavior: unremarkable and within normal limits Mood: Alright Affect and affective range: congruent with mood Thought Process: Goal directed Thought Content: None Speech: Normal volume, Regular rate and rhythm, Suicidal Ideation: Denies Homicidal Ideation:Denies Hallucinations: Denies Delusions: None Impulse Control: Limited Insight and Judgment: Limited insight and poor judgment, Memory: Normal Attention: Normal Orientation: Alert, oriented (1) Assessment and Plan (1) Schizoaffective disorder- F25.9 Current Visit: Yes Status: Acute Treatment plan d/c 1013 Continue home medications, discuss with outpatient psych about need to increase or change meds Risks, benefits and alternatives of medications discussed with the patient, qu estions answered and consent obtained from patient. PSYCHOTHERAPY: Supportive psychotherapy provided MEDICAL: Per primary team DELIRIUM PRECAUTIONS: Please re-orient patient frequently, keep lights on during the day, and minimize benzodiazepines and opiates as these medications could worsen patient's confusion. 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 The patient to follow up with outpatient psych in 7 to 14 days upon discharge from ER The plant wrapper to give the patient all outpatient resources and discuss safety plan Will sign off Thank you for the consult. Please contact with any questions and/or concerns. Case staffed with Dr. Mckeon Medications and Allergies Allergies Allergy/AdvReac Type Severity Reaction Status Date / Time aripiprazole [From Abilify] AdvReac Unknown Verified 09/03/21 07:35 citalopram [From Celexa] AdvReac Unknown Verified 09/03/21 07:35 divalproex sodium AdvReac Unknown Verified 09/03/21 07:35 [From Depakote] lurasidone [From Latuda] AdvReac Unknown Verified 09/03/21 07:35 olanzapine [From Zyprexa] AdvReac Unknown Verified 09/03/21 07:35 paroxetine [From Paxil] AdvReac Unknown Verified 09/03/21 07:35 risperidone [From Risperdal] AdvReac Unknown Verified 09/03/21 07:35 ziprasidone [From Geodon] AdvReac Unknown Verified 09/03/21 07:35 Home Medications Medication Instructions Recorded Confirmed Last Taken Type Benztropine [Cogentin] 0.5 mg PO BID 11/27/21 11/27/21 Unknown History haloperidoL [Haldol] 5 mg PO BID 11/27/21 11/27/21 Unknown History Mental Status Exam - Vital signs Last Vital Signs Temp 98.8 F 11/27/21 04:28 Pulse 88 11/27/21 04:28 Resp 20 11/27/21 05:15 BP 140/81 11/27/21 04:28 Pulse Ox 95 11/27/21 05:15 Results Result Diagrams: 11/27/21 05:00 11/27/21 05:00 Abnormal lab results 11/27/21 11/27/21 11/27/21 Range/Units 05:00 05:00 05:00 RBC 5.10 H (3.65-5.03) M/mm3 MCHC 35 H (32-34) % [place] % (Auto) 13.2 H (0.0-7.3) % [place] # (Auto) 1.1 H (0.0-0.8) K/mm3 BUN (9-20) mg/dL Glucose (75-100) mg/dL AST (5-40) units/L Alkaline Phosphatase (35-129) units/L Salicylates < 0.3 L (2.8-20.0) mg/dL Acetaminophen 5.0 L (10.0-30.0) ug/mL 11/27/21 Range/Units 05:00 RBC (3.65-5.03) M/mm3 MCHC (32-34) % [place] % (Auto) (0.0-7.3) % [place] # (Auto) (0.0-0.8) K/mm3 BUN 8 L (9-20) mg/dL Glucose 146 H (75-100) mg/dL AST 54 H (5-40) units/L Alkaline Phosphatase 162 H (35-129) units/L Salicylates (2.8-20.0) mg/dL Acetaminophen (10.0-30.0) ug/mL All other labs normal.
[2021-11-27 09:44] VITALS: BP 130/72
== END 2021-11-27 10:15 | disposition home or self-care (01) ==
LOC: ED 04:26
DX: R45.851 Suicidal ideations (principal); F12.20 Cannabis dependence, uncomplicated; F25.9 Schizoaffective disorder, unspecified; E11.9 Type 2 diabetes mellitus without complications; J45.909 Unspecified asthma, uncomplicated; Z88.8 Allergy status to other drugs, medicaments and biological substances; Z88.9 Allergy status to unspecified drugs, medicaments and biological substances; Z88.1 Allergy status to other antibiotic agents; Z20.822 Contact with and (suspected) exposure to COVID-19
CPT/HCPCS: 36415; 80053; 80307; 81001; 83930; 85025; 99284; U0003; 80320; G0480

== ENCOUNTER 2022-03-03 04:50 | Emergency (ER) | payer MEDICAID ==
[2022-03-03 04:58] VITALS: BP 139/98
== END 2022-03-03 07:00 | disposition left against medical advice (07) ==
LOC: ED 04:50
DX: E11.9 Type 2 diabetes mellitus without complications (principal); Z53.21 Procedure and treatment not carried out due to patient leaving prior to being seen by health care provider

== ENCOUNTER 2022-03-04 02:24 | Emergency (ER) | payer MEDICAID ==
[2022-03-04 02:48] VITALS: BP 130/85
== END 2022-03-04 03:45 | disposition left against medical advice (07) ==
LOC: ED 02:24
DX: R05.9 Cough, unspecified (principal); Z53.21 Procedure and treatment not carried out due to patient leaving prior to being seen by health care provider

== ENCOUNTER 2022-03-09 22:33 | Emergency (ER) | payer MEDICAID ==
[2022-03-09 23:23] VITALS: BP 116/72
[2022-03-09] MEDS ORDERED: diphenhydrAMINE 50 MG/ML VIAL ONE (23:34)
[2022-03-09] MEDS ORDERED: HALOPERIDOL LACTATE 5 MG/1 ML INJ ONE (23:34)
[2022-03-09] MEDS ORDERED: LORazepam 2 MG/ML VIAL ONE (23:34)
[2022-03-10] MEDS ORDERED: HALOPERIDOL LACTATE 5 MG/1 ML INJ IM ONE (00:05)
[2022-03-10] MEDS ORDERED: diphenhydrAMINE 50 MG/ML VIAL IM ONE (00:05)
[2022-03-10] MEDS ORDERED: LORazepam 2 MG/ML VIAL IM ONE (00:15)
[2022-03-10 00:31] LABS: Basophils # (Auto) 0.1 K/mm3 (0.0-0.1); Basophils % (Auto) 0.6 % (0.0-1.8); Eosinophils # (Auto) 0.5 K/mm3 (0.0-0.4); Eosinophils % (Auto) 2.8 % (0.0-4.3); Lymphocytes # (Auto) 4.5 K/mm3 (1.2-5.4); Lymphocytes % (Auto) 26.1 % (13.4-35.0); Mean Corpuscular HGB Conc 36 % (32-34); Mean Corpuscular Volume 84 fl (84-94); Monocytes # (Auto) 1.7 K/mm3 (0.0-0.8); Monocytes % (Auto) 9.7 % (0.0-7.3); Platelet Count 323 K/mm3 (140-440); Red Blood Count 5.34 M/mm3 (3.65-5.03); Red Cell Distribution Width 14.2 % (13.2-15.2)
[2022-03-10 00:39] LABS: Hematocrit 44.6 % (35.5-45.6)
[2022-03-10 00:43] LABS: BUN/Creatinine Ratio 9; Blood Urea Nitrogen 7 mg/dL (9-20); Hemolysis Index 5
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
--- NOTE | 2022-03-10 11:08 | Consultation ---
History of Present Illness - Reason for Consult Consult date: 03/10/22 Reason for consult: hallucinations - History of Present Psychiatric Illness The patient was seen today. He says he came in because he was hearing voices. He says "the voices were doing sexual things, like trauma in my head." He says "I've been off my haldol for about three days, and I get like this when I'm off." The patient says he takes Haldol 10mg po daily and states it normally keeps him "pretty stable." He denies SI/HI. He also denies any fear or feeling of endangerment. The patient says "I feel safe going home. I just need my prescription." He says he lives with his parents. The patent denies any illicit drug use, or alcohol. PSYCH HISTORY Diagnoses: Schizoaffecttive Suicide attempts or Self-harm behavior: No Prior psychiatric hospitalizations: Yes Substance Abuse history: Denies Previous psychiatric medications tried: cogentin and haldol Outpatient treatment: yes PAST MEDICAL HISTORY: Family Psychiatric History: None reported or documented SOCIAL HISTORY Marital Status: Single Living Arrangements: with parents Employment Status: employed Access to guns/weapons: Denies Education: 12th grade History of Abuse: Denies Legal History: none MENTAL STATUS EXAMINATION General Appearance and Behavior: Age appropriate, good hygiene, wearing appropriate clothes, calm, cooperative, polite Cooperation: Participating Psychomotor Behavior: unremarkable and within normal limits Mood: Alright Affect and affective range: congruent with mood Thought Process: Goal directed Thought Content: None Speech: Normal volume, Regular rate and rhythm, Suicidal Ideation: Denies Homicidal Ideation:Denies Hallucinations: Denies Delusions: None Impulse Control: Limited Insight and Judgment: Limited insight and poor judgment, Memory: Normal Attention: Normal Orientation: Alert, oriented Assessment and Plan (1) Schizoaffective disorder- F25.9 Treatment plan d/c 1013 Restart home haldol 10mg po daily Risks, benefits and alternatives of medications discussed with the patient, questions answered and consent obtained from patient. PSYCHOTHERAPY: Supportive psychotherapy provided MEDICAL: Per primary team DELIRIUM PRECAUTIONS: Please re-orient patient frequently, keep lights on during the day, and minimize benzodiazepines and opiates as these medications could worsen patient's confusion. 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 The patient to follow up with outpatient psych in 7 to 14 days upon discharge from ER The theater set production designer to give the patient all outpatient resources and discuss safety plan Will sign off Thank you for the consult. Please contact with any questions and/or concerns. Case staffed with Dr. Mckeon Medications and Allergies Allergies Allergy/AdvReac Type Severity Reaction Status Date / Time aripiprazole [From Abilify] AdvReac Unknown Verified 03/03/22 05:00 citalopram [From Celexa] AdvReac Unknown Verified 03/03/22 05:00 divalproex sodium AdvReac Unknown Verified 03/03/22 05:00 [From Depakote] lurasidone [From Latuda] AdvReac Unknown Verified 03/03/22 05:00 olanzapine [From Zyprexa] AdvReac Unknown Verified 03/03/22 05:00 paroxetine [From Paxil] AdvReac Unknown Verified 03/03/22 05:00 risperidone [From Risperdal] AdvReac Unknown Verified 03/03/22 05:00 ziprasidone [From Geodon] AdvReac Unknown Verified 03/03/22 05:00 Home Medications Medication Instructions Recorded Confirmed Last Taken Type haloperidoL [Haldol] 10 mg PO DAILY #60 03/10/22 Unknown Rx Mental Status Exam - Vital signs Last Vital Signs Temp 98 F 03/09/22 23:23 Pulse 102 H 03/09/22 23:23 Resp 20 03/09/22 23:23 BP 116/72 03/09/22 23:23 Pulse Ox 99 03/09/22 23:24 Results Result Diagrams: 03/10/22 00:02 03/10/22 00:02 Abnormal lab results 03/10/22 03/10/22 03/10/22 Range/Units 00:02 00:02 00:02 WBC 17.2 H (4.5-11.0) K/mm3 RBC 5.34 H (3.65-5.03) M/mm3 Hgb 16.0 H (11.8-15.2) gm/dl MCHC 36 H (32-34) % [place] % (Auto) 9.7 H (0.0-7.3) % [place] # (Auto) 1.7 H (0.0-0.8) K/mm3 Eos # (Auto) 0.5 H (0.0-0.4) K/mm3 Seg Neutrophils # 10.5 H (1.8-7.7) K/mm3 BUN 7 L (9-20) mg/dL Glucose 149 H (75-100) mg/dL Salicylates < 0.3 L (2.8-20.0) mg/dL Acetaminophen (10.0-30.0) ug/mL 03/10/22 Range/Units 00:02 WBC (4.5-11.0) K/mm3 RBC (3.65-5.03) M/mm3 Hgb (11.8-15.2) gm/dl MCHC (32-34) % [place] % (Auto) (0.0-7.3) % [place] # (Auto) (0.0-0.8) K/mm3 Eos # (Auto) (0.0-0.4) K/mm3 Seg Neutrophils # (1.8-7.7) K/mm3 BUN (9-20) mg/dL Glucose (75-100) mg/dL Salicylates (2.8-20.0) mg/dL Acetaminophen 5.0 L (10.0-30.0) ug/mL All other labs normal.
[2022-03-10] MEDS ORDERED: LORazepam 2 MG/ML VIAL IM STA (14:24)
[2022-03-10 14:53] LABS: Amphetamine Screen,Urine Negative; Benzodiazepines Screen,Urine Negative; Cocaine Screen,Urine Negative; Methadone Screen,Urine Negative; Opiate Screen,Urine Negative
[2022-03-10 14:57] LABS: Bilirubin,Urine NEG (Negative); Blood,Urine NEG (Negative); Color,Urine Yellow (Yellow); Mucus,Urine FEW /HPF; Protein,Urine <15 mg/dL mg/dL (Negative); RBC,Urine < 1.0 /HPF (0.0-6.0); Urobilinogen,Urine < 2.0 mg/dL (<2.0); WBC,Urine < 1.0 /HPF (0.0-6.0)
[2022-03-10 15:06] LABS: Cannabinoid Screen,Urine Positive
--- NOTE | 2022-03-10 15:17 | Event Note ---
Date: 03/10/22 Patient had presented with complaints of hearing voices. Was seen by psych and cleared, to follow up as an outpatient, with Rx for haloperidol. Denies any visual or auditory hallucinations @ this time. Denies SI, HI. Received geodon and ativan while he was here, ordered by the prior physician. ED Medical Decision Making - Lab Data Result diagrams: 03/10/22 00:02 03/10/22 00:02 Laboratory Tests 03/10/22 03/10/22 03/10/22 00:02 00:02 00:02 WBC 17.2 H RBC 5.34 H Hgb 16.0 H Hct 44.6 MCV 84 MCH 30 MCHC 36 H RDW 14.2 Plt Count 323 Lymph % (Auto) 26.1 [place] % (Auto) 9.7 H Eos % (Auto) 2.8 Baso % (Auto) 0.6 Lymph # (Auto) 4.5 [place] # (Auto) 1.7 H Eos # (Auto) 0.5 H Baso # (Auto) 0.1 Seg Neutrophils % 60.8 Seg Neutrophils # 10.5 H Sodium 140 Potassium 4.1 Chloride 103.4 Carbon Dioxide 24 Anion Gap 17 BUN 7 L Creatinine 0.8 Estimated GFR > 60 BUN/Creatinine Ratio 9 Glucose 149 H Calcium 9.0 Urine Color Urine Turbidity Urine pH Ur Specific [place] Urine Protein Urine Glucose (UA) Urine Ketones Urine Blood Urine Nitrite Urine Bilirubin Urine Urobilinogen Ur Leukocyte Esterase Urine WBC (Auto) Urine RBC (Auto) Urine Mucus Salicylates < 0.3 L Urine Opiates Screen Urine Methadone Screen Acetaminophen Ur Barbiturates Screen Ur Phencyclidine Scrn Ur Amphetamines Screen U Benzodiazepines Scrn Urine Cocaine Screen U Marijuana (THC) Screen Drugs of Abuse Note SARS-CoV-2 (PCR) 03/10/22 03/10/22 03/10/22 00:02 10:45 14:30 WBC RBC Hgb Hct MCV MCH MCHC RDW Plt Count Lymph % (Auto) [place] % (Auto) Eos % (Auto) Baso % (Auto) Lymph # (Auto) [place] # (Auto) Eos # (Auto) Baso # (Auto) Seg Neutrophils % Seg Neutrophils # Sodium Potassium Chloride Carbon Dioxide Anion Gap BUN Creatinine Estimated GFR BUN/Creatinine Ratio Glucose Calcium Urine Color Yellow Urine Turbidity Clear Urine pH 7.0 Ur Specific [place] 1.015 Urine Protein <15 mg/dl Urine Glucose (UA) Neg Urine Ketones Neg Urine Blood Neg Urine Nitrite Neg Urine Bilirubin Neg Urine Urobilinogen < 2.0 Ur Leukocyte Esterase Neg Urine WBC (Auto) < 1.0 Urine RBC (Auto) < 1.0 Urine Mucus Few Salicylates Urine Opiates Screen Urine Methadone Screen Acetaminophen 5.0 L Ur Barbiturates Screen Ur Phencyclidine Scrn Ur Amphetamines Screen U Benzodiazepines Scrn Urine Cocaine Screen U Marijuana (THC) Screen Drugs of Abuse Note SARS-CoV-2 (PCR) Negative 03/10/22 14:30 WBC RBC Hgb Hct MCV MCH MCHC RDW Plt Count Lymph % (Auto) [place] % (Auto) Eos % (Auto) Baso % (Auto) Lymph # (Auto) [place] # (Auto) Eos # (Auto) Baso # (Auto) Seg Neutrophils % Seg Neutrophils # Sodium Potassium Chloride Carbon Dioxide Anion Gap BUN Creatinine Estimated GFR BUN/Creatinine Ratio Glucose Calcium Urine Color Urine Turbidity Urine pH Ur Specific [place] Urine Protein Urine Glucose (UA) Urine Ketones Urine Blood Urine Nitrite Urine Bilirubin Urine Urobilinogen Ur Leukocyte Esterase Urine WBC (Auto) Urine RBC (Auto) Urine Mucus Salicylates Urine Opiates Screen Negative Urine Methadone Screen Negative Acetaminophen Ur Barbiturates Screen Negative Ur Phencyclidine Scrn Negative Ur Amphetamines Screen Negative U Benzodiazepines Scrn Negative Urine Cocaine Screen Negative U Marijuana (THC) Screen Positive Drugs of Abuse Note Disclamer SARS-CoV-2 (PCR) - Medical Decision Making IMPRESSION: 1. Psychosis. ED Disposition Disposition: 01 HOME / SELF CARE / HOMELESS Is pt being admited?: No Does the pt Need Aspirin: No Condition: Stable Additional Instructions: Professional and Agency Contacts To help Resolve Crises(06/06) [place] Crisis Line: [phone] Suicide Prevention Line: Crisis Text Line: Text START to 320617 Emergency: 911 Outpatient COMMUNITY Behavioral Health Resources: [place]: [facility] [address] [place], [place] [address] [facility] [address] [place] [address] [place]: [facility] - [address] [place] [address] Tuesday thru Tuesday - 8am - 5pm [place] Address: [address], [place] [address] [place]: [facility] Address: [address] [place] [address] Tuesday thru Tuesday- 7am-2pm [facility] Address: [address], [place] [address] Tuesday thru Tuesday: 8:30AM-5PM OUTPATIENT MENTAL HEALTH RESOURCES [facility], [address] [place] [address] [facility] Natacha Ellis MD: [address] [facility] [address] [place], [place] [id number] [facility]: [address] [place] [address] [place] [address] [phone] [facility]: [address] [facility] [address] [place], [place] [id number] [facility]: [address] [facility] [address] [facility] [id number] [facility]: [address] [place] [address] Dawson Hernandez MD: [address] [facility] [id number] [facility]: [address] [place], [place] [id number] [phone] [place] CRISIS AND ACCESS LINE: * Prescriptions: haloperidoL [Haldol] 10 mg PO DAILY #60 Referrals: PRIMARY CARE, [Primary Care Provider] - 3-5 Days Time of Disposition: 15:25
== END 2022-03-10 15:53 | disposition home or self-care (01) ==
LOC: EEVIPCON 22:33 → ED 22:33
DX: F29 Unspecified psychosis not due to a substance or known physiological condition (principal); E11.8 Type 2 diabetes mellitus with unspecified complications; F12.90 Cannabis use, unspecified, uncomplicated; J45.909 Unspecified asthma, uncomplicated; Z88.8 Allergy status to other drugs, medicaments and biological substances; Z88.1 Allergy status to other antibiotic agents; Z20.822 Contact with and (suspected) exposure to COVID-19
CPT/HCPCS: 36415; 80048; 80307; 81001; 85025; 96372; 99284; J1200; J1630; J2060; U0003; 80320; G0480

== ENCOUNTER 2022-03-11 14:34 | Emergency (ER) | payer MEDICAID ==
[2022-03-11] MEDS ORDERED: LORazepam 2 MG/ML VIAL IM STA (17:00)
[2022-03-11] MEDS ORDERED: HALOPERIDOL DECANOATE 100 MG/1 ML INJ IM ONE (18:00)
--- NOTE | 2022-03-11 18:44 | XRay Report ---
CHEST 1 VIEW INDICATION: cough. COMPARISON: 10/03/2018 FINDINGS: SUPPORT DEVICES: None. HEART: Within normal limits. LUNGS/PLEURA: No acute air space or interstitial disease. ADDITIONAL FINDINGS: None. IMPRESSION: 1. No acute findings. Signer Name: Viral Kirkland MD Signed: 03/11/2022 6:40 PM Workstation Name: [id number]
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
[2022-03-12] MEDS ORDERED: LORazepam 2 MG/ML VIAL IM ONE (05:53)
[2022-03-12] MEDS ORDERED: diphenhydrAMINE 50 MG/ML VIAL IM ONE (05:53)
--- NOTE | 2022-03-12 08:41 | Event Note ---
Date: 03/12/22 [id number] evaluation performed. Patient required placement into seclusion as he is not responding to verbal de-escalation techniques or show of force. Patient coughing on staff members, and also throwing urine on the floor. It appears that his laboratory studies were not obtained yesterday. As needed medications ordered. Appropriate laboratory studies as typically required for psychiatric disposition are ordered. The emergency room will follow along as the patient provides these. CASA Charles instructed to coordinate with security to obtain labs on this patient Patient currently in seclusion now, breathing spontaneously, moving 4 extremities and in no acute distress. He has poured urine on the floor. CHEST 1 VIEW INDICATION: cough. COMPARISON: 10/03/2018 FINDINGS: SUPPORT DEVICES: None. HEART: Within normal limits. LUNGS/PLEURA: No acute air space or interstitial disease. ADDITIONAL FINDINGS: None. IMPRESSION: 1. No acute findings. Signer Name: Viral Kirkland MD Signed: 03/11/2022 5:40 PM Workstation Name: [id number] Vital Signs 03/11/22 03/11/22 03/11/22 15:56 16:06 20:10 Temperature 98.4 F 97.7 F Pulse Rate 99 H 85 Respiratory 18 18 Rate Blood Pressure 134/95 139/89 [Right] O2 Sat by Pulse 100 97 94 Oximetry Lab Results 03/12/22 03/12/22 03/12/22 Range/Units 09:50 11:18 11:18 WBC 14.2 H (4.5-11.0) K/mm3 RBC 6.10 H (3.65-5.03) M/mm3 Hgb 18.0 H (11.8-15.2) gm/dl Hct 52.5 H D (35.5-45.6) % MCV 86 (84-94) fl MCH 30 (28-32) pg MCHC 34 (32-34) % RDW 14.5 (13.2-15.2) % Plt Count 302 (140-440) K/mm3 Sodium 131 L D (137-145) mmol/L Potassium 4.6 (3.6-5.0) mmol/L Chloride 96.9 L (98-107) mmol/L Carbon Dioxide 24 (22-30) mmol/L Anion Gap 15 mmol/L BUN 11 (9-20) mg/dL Creatinine 0.8 (0.8-1.3) mg/dL Estimated GFR > 60 ml/min BUN/Creatinine Ratio 14 % Glucose 120 H (75-100) mg/dL Calcium 9.6 (8.4-10.2) mg/dL Total Creatine Kinase 974 H (55-170) units/L Salicylates (2.8-20.0) mg/dL Acetaminophen (10.0-30.0) ug/mL Valproic Acid (50-100) ug/mL Hough (0.0-1.2) mmol/L SARS-CoV-2 (PCR) Negative (Negative) 03/12/22 03/12/22 Range/Units 11:18 11:18 WBC (4.5-11.0) K/mm3 RBC (3.65-5.03) M/mm3 Hgb (11.8-15.2) gm/dl Hct (35.5-45.6) % MCV (84-94) fl MCH (28-32) pg MCHC (32-34) % RDW (13.2-15.2) % Plt Count (140-440) K/mm3 Sodium (137-145) mmol/L Potassium (3.6-5.0) mmol/L Chloride (98-107) mmol/L Carbon Dioxide (22-30) mmol/L Anion Gap mmol/L BUN (9-20) mg/dL Creatinine (0.8-1.3) mg/dL Estimated GFR ml/min BUN/Creatinine Ratio % Glucose (75-100) mg/dL Calcium (8.4-10.2) mg/dL Total Creatine Kinase (55-170) units/L Salicylates < 0.3 L (2.8-20.0) mg/dL Acetaminophen 5.0 L (10.0-30.0) ug/mL Valproic Acid < 2.8 L (50-100) ug/mL Hough 0.1 (0.0-1.2) mmol/L SARS-CoV-2 (PCR) (Negative) Laboratory studies are reviewed and appreciated. Leukocytosis is likely a stress reaction. CK will decrease on its own with rest and oral hydration. Urinalysis is pending. Serum toxicology study unremarkable. Awaiting UA/UDS
[2022-03-12] MEDS: LORazepam 2 MG/ML VIAL IM PRN (09:55)
[2022-03-12] MEDS: HALOPERIDOL LACTATE 5 MG/1 ML INJ IM PRN (09:55)
[2022-03-12 11:39] LABS: Hematocrit 52.5 % (35.5-45.6); Mean Corpuscular HGB Conc 34 % (32-34); Mean Corpuscular Volume 86 fl (84-94); Platelet Count 302 K/mm3 (140-440); Red Cell Distribution Width 14.5 % (13.2-15.2)
[2022-03-12 12:04] LABS: BUN/Creatinine Ratio 14; Blood Urea Nitrogen 11 mg/dL (9-20); Calcium 9.6 mg/dL (8.4-10.2); Hemolysis Index 20
--- NOTE | 2022-03-12 12:05 | Consultation ---
History of Present Illness - Reason for Consult Consult date: 03/12/22 Reason for consult: psychosis - History of Present Psychiatric Illness The patient is a 27 year old male with history of schizoaffective disorder who was recently discharge. The patient was seen disrobed in seclusion today. He presents with disorganized thoughts asking what is Covid pandemic and what is going on in the world. The patient is verbally inappropriate. When asked about suicidality,he states " you tell me." PSYCH HISTORY Diagnoses: Schizoaffecttive Suicide attempts or Self-harm behavior: No Prior psychiatric hospitalizations: Yes Substance Abuse history: Denies Previous psychiatric medications tried: cogentin and haldol Outpatient treatment: yes PAST MEDICAL HISTORY: Family Psychiatric History: None reported or documented SOCIAL HISTORY Marital Status: Single Living Arrangements: with parents Employment Status: employed Access to guns/weapons: Denies Education: 12th grade History of Abuse: Denies Legal History: none MENTAL STATUS EXAMINATION General Appearance and Behavior: Age appropriate, good hygiene, wearing appropriate clothes, calm, cooperative, polite Cooperation: Participating Psychomotor Behavior: unremarkable and within normal limits Mood: Confused Affect and affective range: congruent with mood Thought Process: disorganized Thought Content: Confused Speech: Normal volume, Regular rate and rhythm, Suicidal Ideation: Unable to assess Homicidal Ideation:Unable to assess Hallucinations: Unable to assess Delusions:Unable to assess Impulse Control: Questionable Insight and Judgment: Limited insight and poor judgment, Memory: abnormal Attention: Inattentive Orientation: Alert, oriented Assessment and Plan (1) Schizoaffective disorder- F25.9 Treatment Plan 1013 Continue Haldol 10mg po daily PSYCHOTHERAPY: Supportive psychotherapy provided MEDICAL: Per primary team DELIRIUM PRECAUTIONS: Please re-orient patient frequently, keep lights on during the day, and minimize benzodiazepines and opiates as these medications could wo rsen patient's confusion. 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 Thanks. Thank you for the consult. Case staffed with Dr. Mckeon Medications and Allergies Medications and Allergies Allergies Allergy/AdvReac Type Severity Reaction Status Date / Time aripiprazole [From Abilify] AdvReac Unknown Verified 03/03/22 05:00 citalopram [From Celexa] AdvReac Unknown Verified 03/03/22 05:00 divalproex sodium AdvReac Unknown Verified 03/03/22 05:00 [From Depakote] lurasidone [From Latuda] AdvReac Unknown Verified 03/03/22 05:00 olanzapine [From Zyprexa] AdvReac Unknown Verified 03/03/22 05:00 paroxetine [From Paxil] AdvReac Unknown Verified 03/03/22 05:00 risperidone [From Risperdal] AdvReac Unknown Verified 03/03/22 05:00 ziprasidone [From Geodon] AdvReac Unknown Verified 03/03/22 05:00 Home Medications Medication Instructions Recorded Confirmed Last Taken Type haloperidoL [Haldol] 10 mg PO DAILY #60 03/10/22 Unknown Rx Active Meds: Active Medications Haloperidol Lactate (Haloperidol Lactate 5 Mg/1 Ml Inj) 5 mg IM Q6HR PRN PRN Reason: Agitation Last Admin: 03/12/22 09:55 Dose: 5 mg Lorazepam (Lorazepam 2 Mg/Ml Vial) 2 mg IM Q4HR PRN PRN Reason: Agitation Last Admin: 03/12/22 09:55 Dose: 2 mg Mental Status Exam - Vital signs Last Vital Signs Temp 98.2 F 03/12/22 09:00 Pulse 82 03/12/22 09:00 Resp 18 03/12/22 09:00 BP 120/68 03/12/22 09:00 Pulse Ox 98 03/12/22 09:00 Results Result Diagrams: 03/12/22 11:18 03/12/22 11:18 Abnormal lab results 03/12/22 03/12/22 Range/Units 11:18 11:18 WBC 14.2 H (4.5-11.0) K/mm3 RBC 6.10 H (3.65-5.03) M/mm3 Hgb 18.0 H (11.8-15.2) gm/dl Hct 52.5 H D (35.5-45.6) % Chloride 96.9 L (98-107) mmol/L Glucose 120 H (75-100) mg/dL Total Creatine Kinase 974 H (55-170) units/L All other labs normal.
[2022-03-12] MEDS: HALOPERIDOL 5 MG TAB PO SCH (13:52)
--- NOTE | 2022-03-13 11:08 | Progress Note ---
Subjective - Reason for Consult Consult date: 03/13/22 Reason for consult: Psychosis - Chief Complaint Chief complaint: The patient was seen this morning. He continues to be disorganized. REVIEW OF SYSTEMS Constitutional: Negative for weight loss ENT: Negative for stridor Respiratory: Negative for cough or hemoptysis All other systems reviewed and are negative MENTAL STATUS EXAMINATION General Appearance and Behavior: Age appropriate, good hygiene, wearing appropriate clothes, calm, cooperative, polite Cooperation: Participating Psychomotor Behavior: unremarkable and within normal limits Mood: Confused Affect and affective range: congruent with mood Thought Process: disorganized Thought Content: Confused Speech: Normal volume, Regular rate and rhythm, Suicidal Ideation: Unable to assess Homicidal Ideation:Unable to assess Hallucinations: Unable to assess Delusions:Unable to assess Impulse Control: Questionable Insight and Judgment: Limited insight and poor judgment, Memory: abnormal Attention: Inattentive Orientation: Alert, oriented Assessment and Plan (1) Schizoaffective disorder- F25.9 Treatment Plan 1013 Continue Haldol 10mg po daily PSYCHOTHERAPY: Supportive psychotherapy provided MEDICAL: Per primary team DELIRIUM PRECAUTIONS: Please re-orient patient frequently, keep lights on during the day, and minimize benzodiazepines and opiates as these medications could worsen patient's confusion. 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 Thanks. Thank you for the consult. Case staffed with Dr. Mckeon Medications and Allergies Mental Status Exam - Vital signs Last Vital Signs Temp 98.2 F 03/12/22 09:00 Pulse 78 03/12/22 20:01 Resp 18 03/12/22 20:01 BP 133/80 03/12/22 20:01 Pulse Ox 100 03/12/22 21:00
[2022-03-13] MEDS ORDERED: HALOPERIDOL DECANOATE 100 MG/1 ML INJ IM ONE (11:11)
--- NOTE | 2022-03-13 13:33 | Event Note ---
Date: 03/13/22 Patient seen and examined. Standing up in room 14, and in no acute distress. Awake, ambulatory with a steady gait, moving 4 extremities and in no acute distress. Psychiatric placement is pending at this time. He does not appear to be acutely decompensated at this point in time Vital Signs 03/11/22 03/11/22 03/11/22 15:56 16:06 20:10 Temperature 98.4 F 97.7 F Pulse Rate 99 H 85 Respiratory 18 18 Rate Blood Pressure 134/95 139/89 [Right] O2 Sat by Pulse 100 97 94 Oximetry 03/12/22 03/12/22 03/12/22 09:00 20:01 21:00 Temperature 98.2 F Pulse Rate 82 78 Respiratory 18 18 Rate Blood Pressure 120/68 133/80 [Right] O2 Sat by Pulse 98 97 100 Oximetry
[2022-03-13] MEDS: HALOPERIDOL 5 MG TAB PO SCH (13:46)
[2022-03-13] MEDS: HALOPERIDOL LACTATE 5 MG/1 ML INJ IM PRN (21:53)
[2022-03-13] MEDS: LORazepam 2 MG/ML VIAL IM PRN (21:53)
--- NOTE | 2022-03-14 10:05 | Progress Note ---
Subjective - Reason for Consult Consult date: 03/14/22 Reason for consult: Psychosis - Chief Complaint Chief complaint: The patient was seen this morning. He states he is doing well. No aggressive behaviors reported. The patient denies any current suicidal/homicidal ideation and denies hallucinations REVIEW OF SYSTEMS Constitutional: Negative for weight loss ENT: Negative for stridor Respiratory: Negative for cough or hemoptysis All other systems reviewed and are negative MENTAL STATUS EXAMINATION General Appearance and Behavior: Age appropriate, good hygiene, wearing appropriate clothes, calm, cooperative, polite Cooperation: Participating Psychomotor Behavior: unremarkable and within normal limits Mood: ok Affect and affective range: congruent with mood Thought Process: Goal directed Thought Content: Reality oriented Speech: Normal volume, Regular rate and rhythm, Suicidal Ideation: Denies Homicidal Ideation:Denies Hallucinations: Denies Delusions:None Impulse Control: Questionable Insight and Judgment: Limited insight and judgment, Memory: abnormal Attention: attentive Orientation: Alert, oriented Assessment and Plan (1) Schizoaffective disorder- F25.9 Treatment Plan DC 1013 Continue Haldol 10mg po daily PSYCHOTHERAPY: Supportive psychotherapy provided MEDICAL: Per primary team DELIRIUM PRECAUTIONS: Please re-orient patient frequently, keep lights on during the day, and minimize benzodiazepines and opiates as these medications could worsen patient's confusion. 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 Thanks. Thank you for the consult. Case staffed with Dr. Mckeon Medications and Allergies Mental Status Exam - Vital signs Last Vital Signs Temp 98.5 F 03/13/22 20:38 Pulse 68 03/13/22 20:38 Resp 16 03/13/22 20:38 BP 125/85 03/13/22 20:38 Pulse Ox 100 03/13/22 21:00
[2022-03-14] MEDS: HALOPERIDOL 5 MG TAB PO SCH (10:51)
[2022-03-14 12:30] VITALS: BP 118/82
== END 2022-03-14 12:30 | disposition home or self-care (01) ==
LOC: ED 14:34
DX: F23 Brief psychotic disorder (principal); F12.90 Cannabis use, unspecified, uncomplicated; E11.9 Type 2 diabetes mellitus without complications; J45.909 Unspecified asthma, uncomplicated; Z88.8 Allergy status to other drugs, medicaments and biological substances; Z20.822 Contact with and (suspected) exposure to COVID-19
CPT/HCPCS: 36415; 71045; 80048; 80164; 80178; 82550; 85027; 96372; 99285; J1200; J1630; J1631; J2060; U0003; 80320; 90472; 99284; G0480

== ENCOUNTER 2022-03-22 02:01 | Emergency (ER) | payer MEDICAID ==
[2022-03-22 02:11] VITALS: BP 134/90
[2022-03-22 02:41] LABS: Bilirubin,Urine NEG (Negative); Blood,Urine NEG (Negative); Color,Urine Yellow (Yellow); Mucus,Urine FEW /HPF; Protein,Urine <15 mg/dL mg/dL (Negative); Urobilinogen,Urine < 2.0 mg/dL (<2.0); WBC,Urine < 1.0 /HPF (0.0-6.0)
[2022-03-22 02:43] LABS: Amphetamine Screen,Urine PRESUMPTIVE NEGATIVE; Benzodiazepines Screen,Urine PRESUMPTIVE NEGATIVE; Cannabinoid Screen,Urine PRESUMPTIVE POSITIVE; Cocaine Screen,Urine PRESUMPTIVE NEGATIVE; Methadone Screen,Urine PRESUMPTIVE NEGATIVE; Opiate Screen,Urine PRESUMPTIVE NEGATIVE
== END 2022-03-22 12:00 | disposition left against medical advice (07) ==
LOC: ED 02:01
DX: Z13.30 Encounter for screening examination for mental health and behavioral disorders, unspecified (principal); Z53.21 Procedure and treatment not carried out due to patient leaving prior to being seen by health care provider; Z79.899 Other long term (current) drug therapy
CPT/HCPCS: 80307; 81001

== ENCOUNTER 2022-03-22 22:07 | Emergency (ER) | payer MEDICAID ==
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
[2022-03-22 23:54] LABS: Bilirubin,Urine NEG (Negative); Blood,Urine NEG (Negative); Color,Urine Amber (Yellow); Protein,Urine <15 mg/dL mg/dL (Negative); Urobilinogen,Urine < 2.0 mg/dL (<2.0); WBC,Urine < 1.0 /HPF (0.0-6.0)
[2022-03-23 00:11] LABS: Amphetamine Screen,Urine PRESUMPTIVE NEGATIVE; Benzodiazepines Screen,Urine PRESUMPTIVE NEGATIVE; Cannabinoid Screen,Urine PRESUMPTIVE POSITIVE; Cocaine Screen,Urine PRESUMPTIVE NEGATIVE; Methadone Screen,Urine PRESUMPTIVE NEGATIVE; Opiate Screen,Urine PRESUMPTIVE NEGATIVE
[2022-03-23 00:31] LABS: Basophils # (Auto) 0.1 K/mm3 (0.0-0.1); Basophils % (Auto) 0.7 % (0.0-1.8); Eosinophils # (Auto) 0.4 K/mm3 (0.0-0.4); Eosinophils % (Auto) 2.4 % (0.0-4.3); Lymphocytes # (Auto) 4.3 K/mm3 (1.2-5.4); Lymphocytes % (Auto) 24.1 % (13.4-35.0); Mean Corpuscular HGB Conc 37 % (32-34); Mean Corpuscular Volume 84 fl (84-94); Monocytes # (Auto) 1.5 K/mm3 (0.0-0.8); Monocytes % (Auto) 8.4 % (0.0-7.3); Platelet Count 260 K/mm3 (140-440); Red Blood Count 5.31 M/mm3 (3.65-5.03); Red Cell Distribution Width 14.6 % (13.2-15.2)
[2022-03-23 00:36] LABS: Hematocrit 44.8 % (35.5-45.6); Hemoglobin 16.4 gm/dl (11.8-15.2)
[2022-03-23 00:52] LABS: Alanine Aminotransferase 47 units/L (7-56); Albumin 4.3 g/dL (3.9-5); BUN/Creatinine Ratio 20; Blood Urea Nitrogen 18 mg/dL (9-20); Calcium 8.7 mg/dL (8.4-10.2); Hemolysis Index 14
[2022-03-23 07:54] VITALS: BP 134/86
--- NOTE | 2022-03-23 11:13 | Consultation ---
History of Present Illness - Reason for Consult Consult date: 03/23/22 Reason for consult: voices - History of Present Psychiatric Illness HPI: 27-year-old male with a history of schizophrenia, PTSD and bipolar who now presents with hearing voices for the last 2 to 3 years. When asked specifically if the voices asked him to do anything or any instruction he said no. Patient denies any specific suicidal or homicidal ideation. Is currently taking Haldol and Cogentin. No other modifying or associated factors reported. The patient was seen today. He is known to me from previous visits. The patient verbalizes "hearing voices and stuff, and problems at home." His demeanor is incongruent with his symptoms. He's calm, cooperative and conversational. He says he's been hearing voices for years. He says "they never go away." He says "the medication people give me never works." The patient says "I've tried about 5 different pills." I asked the patient if he tried talking to his outpatient psychiatrist to get his meds adjusted or changed, he replies "naw, not yet." The patient says he takes Haldol and has been compliant with it. He denies the voic es saying anything threatening. The patient denies SI/HI. Do not recommend inpatient psych treatment at this time. The patient is to follow up with outpatient psychiatrist to discuss progress on meds. PSYCH HISTORY Diagnoses: Schizoaffecttive Suicide attempts or Self-harm behavior: No Prior psychiatric hospitalizations: Yes Substance Abuse history: Denies Previous psychiatric medications tried: cogentin and haldol Outpatient treatment: yes PAST MEDICAL HISTORY: Family Psychiatric History: None reported or documented SOCIAL HISTORY Marital Status: Single Living Arrangements: with parents Employment Status: employed Access to guns/weapons: Denies Education: 12th grade History of Abuse: Denies Legal History: none MENTAL STATUS EXAMINATION General Appearance and Behavior: Age appropriate, good hygiene, wearing appropriate clothes, calm, cooperative, polite Cooperation: Participating Psychomotor Behavior: unremarkable and within normal limits Mood: alright Affect and affective range: congruent with mood Thought Process: goal directed Thought Content: none Speech: Normal volume, Regular rate and rhythm, Suicidal Ideation: Denies Homicidal Ideation: Denies Hallucinations: Auditory Delusions: None elicited Impulse Control: Limited Insight and Judgment: Limited insight and poor judgment, Memory: Normal Attention: attentive Orientation: Alert, oriented Assessment and Plan (1) Hx of Schizoaffective disorder- F25.9 Treatment Plan Continue Haldol 10mg po daily PSYCHOTHERAPY: Supportive psychotherapy provided MEDICAL: Per primary team DELIRIUM PRECAUTIONS: Please re-orient patient frequently, keep lights on during the day, and minimize benzodiazepines and opiates as these medications could worsen patient's confusion. CONSERVATION ASSISTANT: Per medical team DISPOSITION: Do not recommend acute psychiatric inpatient treatment. The patient understands that if SI/HI arise or fear of endangerment he is to seek immediate assistance. The patient to follow up with outpatient psych in 7 to 14 days upon discharge Will sign off. Thank you for the consult. Case staffed with Dr. Mckeon Medications and Allergies Allergies Allergy/AdvReac Type Severity Reaction Status Date / Time aripiprazole [From Abilify] AdvReac Unknown Verified 03/03/22 05:00 citalopram [From Celexa] AdvReac Unknown Verified 03/03/22 05:00 divalproex sodium AdvReac Unknown Verified 03/03/22 05:00 [From Depakote] lurasidone [From Latuda] AdvReac Unknown Verified 03/03/22 05:00 olanzapine [From Zyprexa] AdvReac Unknown Verified 03/03/22 05:00 paroxetine [From Paxil] AdvReac Unknown Verified 03/03/22 05:00 risperidone [From Risperdal] AdvReac Unknown Verified 03/03/22 05:00 ziprasidone [From Geodon] AdvReac Unknown Verified 03/03/22 05:00 Home Medications Medication Instructions Recorded Confirmed Last Taken Type haloperidoL [Haldol] 10 mg PO DAILY #60 03/10/22 Unknown Rx haloperidoL [Haloperidol] 10 mg PO DAILY 30 Days #30 03/14/22 Unknown Rx Mental Status Exam - Vital signs Last Vital Signs Temp 97.9 F 03/23/22 07:47 Pulse 88 03/23/22 07:47 Resp 17 03/23/22 07:47 BP 134/86 03/23/22 07:47 Pulse Ox 98 03/23/22 07:47 Results Result Diagrams: 03/23/22 00:11 03/23/22 00:11 Abnormal lab results 03/23/22 03/23/22 03/23/22 Range/Units 00:11 00:11 00:11 WBC 17.7 H (4.5-11.0) K/mm3 RBC 5.31 H (3.65-5.03) M/mm3 Hgb 16.4 H (11.8-15.2) gm/dl MCHC 37 H (32-34) % [place] % (Auto) 8.4 H (0.0-7.3) % [place] # (Auto) 1.5 H (0.0-0.8) K/mm3 Seg Neutrophils # 11.4 H (1.8-7.7) K/mm3 Sodium 135 L (137-145) mmol/L Glucose 114 H (75-100) mg/dL AST 54 H (5-40) units/L Alkaline Phosphatase 167 H (35-129) units/L Salicylates < 0.3 L (2.8-20.0) mg/dL Acetaminophen (10.0-30.0) ug/mL 03/23/22 Range/Units 00:11 WBC (4.5-11.0) K/mm3 RBC (3.65-5.03) M/mm3 Hgb (11.8-15.2) gm/dl MCHC (32-34) % [place] % (Auto) (0.0-7.3) % [place] # (Auto) (0.0-0.8) K/mm3 Seg Neutrophils # (1.8-7.7) K/mm3 Sodium (137-145) mmol/L Glucose (75-100) mg/dL AST (5-40) units/L Alkaline Phosphatase (35-129) units/L Salicylates (2.8-20.0) mg/dL Acetaminophen 5.0 L (10.0-30.0) ug/mL All other labs normal.
== END 2022-03-23 16:43 | disposition home or self-care (01) ==
LOC: EEVIPCON 22:07 → ED 22:07
DX: R44.0 Auditory hallucinations (principal); Z20.822 Contact with and (suspected) exposure to COVID-19; E11.8 Type 2 diabetes mellitus with unspecified complications; J45.909 Unspecified asthma, uncomplicated
CPT/HCPCS: 36415; 80053; 80307; 81001; 85025; 99284; U0003; 80320; G0480